=== PATIENT | male | born 1935 | race Asian ===

== ENCOUNTER 2019-09-17 00:23 | Inpatient (IN) | payer MEDICARE, OTHER ==
[~2019-09-17] VITALS: Ht 177.8 cm; Wt 84.4 kg
--- NOTE | 2019-09-17 00:32 | Emergency Room Report ---
History of Present Illness General Chief Complaint: Dyspnea/Respdistress Source: Medical Record, EMS Present Illness HPI This is an 84-year-old [place] male with a history of metastatic lung cancer, recent CVA, A. fib who presents with chief complaint of shortness of breath. Patient had a prolonged hospitalization at [facility] and was recently discharged [facility]. During hospitalization his cover test was negative. Per [facility] staff, he had a negative cover test 3 days ago. He presents with shortness of breath. Onset tonight. Per EMS, he was 90% on room air. No reported fever. No reported cough. History is from EMS and [facility] note. Patient unable to give a history. Allergies: Coded Allergies: No Known Allergies (Unverified , 09/17/19) COVID-19 Screening Contact w/high risk pt: Yes Experienced COVID-19 symptoms?: Yes COVID-19 Testing performed LITIGATION MANAGER: Yes COVID-19 Screening: Negative COVID-19 COVID-19 Testing Source: x 3 days Patient History Past Medical History: see triage record, old chart reviewed, AFib, pneumonia Past Surgical History: other Pertinent Family History: none Social History: Denies: smoking Immunizations: other Reviewed Nursing Documentation: PMH: Agreed; PSxH: Agreed Nursing Documentation-PMH Hx Hypertension: Yes Hx Cerebrovascular Accident: Yes Review of Systems Respiratory: Reports: shortness of breath All Other Systems: limited - Patient is nonverbal. Also secondary to condition Physical Exam Vital Signs Date Time Temp Pulse Resp B/P (MAP) Pulse Ox O2 Delivery O2 Flow Rate FiO2 09/17/19 00:19 80 19 144/82 (102) 97 Non-Rebreather 15.0 Vitals with fever and hypoxia Sp02 EP Interpretation: abnormal General Appearance: moderate distress, cachetic, Chronically Ill Head: normocephalic, atraumatic Eyes: bilateral eye PERRL, bilateral eye EOMI ENT: dry mucus membranes Neck: full range of motion, supple, no meningismus Respiratory: chest non-tender, respiratory distress, decreased breath sounds, rhonchi Cardiovascular #1: regular rate, rhythm, no murmur Gastrointestinal: normal bowel sounds, non tender, no mass, no organomegaly, no bruit, non-distended, other - G-tube Musculoskeletal: no lower extremity edema, other - Pressure ulcer to right heel Neurologic: no Babinski Psychiatric: mood/affect normal Procedures Critical Care Time Critical Care Time Critical care is mandated in this patient who presented with sepsis from pneumonia and UTI. Patient require my urgent intervention to attenuate the risks of metabolic collapse which may lead to cardiovascular collapse and . Critical care time is 35 minutes excluding any reportable procedure. Critical care time included evaluation, multiple reevaluation, looking at old charts, interpreting laboratory and diagnostic data, discussing case with patient and family and consultants, and charting. Medical Decision Making Diagnostic Impression: Primary Impression: Sepsis Qualified Codes: A41.9 - Sepsis, unspecified organism; R65.20 - Severe sepsis without septic shock; N17.9 - Acute kidney failure, unspecified Additional Impressions: HCAP (healthcare-associated pneumonia) UTI (urinary tract infection) Qualified Codes: N30.00 - Acute cystitis without hematuria Dehydration CVA (cerebral vascular accident) Qualified Codes: I63.9 - Cerebral infarction, unspecified Anemia Qualified Codes: D64.9 - Anemia, unspecified Encephalopathy due to infection Metastatic lung cancer (metastasis from lung to other site) Qualified Codes: C34.90 - Malignant neoplasm of unspecified part of unspecified bronchus or lung ARF (acute renal failure) Qualified Codes: N17.9 - Acute kidney failure, unspecified ER Course Patient presents with sepsis secondary to pneumonia and UTI. He also has metastatic lung CA. CT head showed subacute appearing infarct involving the left frontal, temporal and parietal lobes. He had previous infarct requiring admission in the beginning of August at [facility]. There is no acute infarct. He is outside the window for TPA. Wide spectrum antibiotics given. Prognosis is poor. I contacted Dr. Mariscal for admission. EKG Diagnostic Results Rate: normal Rhythm: NSR Other Impression RBBB Rhythm Strip Diag. Results EP Interpretation: yes Rate: 84 Rhythm: NSR, no PVC's, no ectopy Chest X-Ray Diagnostic Results Chest X-Ray Diagnostic Results : Chest X-Ray Ordered: Yes # of Views/Limited/Complete: 1 View Indication: Shortness of Breath EP Interpretation: Yes Interpretation: no effusion, no pneumothorax, other - Multiple lesions bilaterally. Impression: Other - Pulmonary lesions Electronically Signed by: Shaun Tejada MD CT/MRI/US Diagnostic Results CT/MRI/US Diagnostic Results : Imaging Test Ordered: CT head Impression Read by radiologist. Subacute appearing infarct. Last Vital Signs Date Time Temp Pulse Resp B/P (MAP) Pulse Ox O2 Delivery O2 Flow Rate FiO2 09/17/19 00:19 80 19 144/82 (102) 97 Non-Rebreather 15.0 Status: improved Disposition: ADMITTED INPATIENT Condition: Critical Shaun Tejada MD Sep 17, 2019 00:32
[2019-09-17] MEDS ORDERED: BISACODYL5 MG ORAL (00:37)
[2019-09-17] MEDS ORDERED: FLECAINIDE ACET50 MG ORAL (00:37)
[2019-09-17] MEDS ORDERED: ASPIR 8181 MG GT (00:37)
[2019-09-17] MEDS ORDERED: LIPITOR20 MG GT (00:37)
[2019-09-17] MEDS ORDERED: ATENOLOL25 MG GT (00:37)
[2019-09-17] MEDS ORDERED: ALBUTEROL2.5 MG/3 M INH (00:37)
[2019-09-17] MEDS ORDERED: PROTONIX40 MG GT (00:37)
[2019-09-17] MEDS ORDERED: TYLENOL EXTRA500 MG GT (00:37)
--- NOTE | 2019-09-17 00:38 | NUR ---
ED Nurse Note: Patient brought in by ambulance [id number] from [facility] d/t c/o SOB. Patient obtunded and nonverbal, only responds to deep pain. Patient placed on laboratory monitor and is currently on nonrebreather mask 15L O2, satting at 98-100% RT at bedside for ABG draw. Patient has a PICC line on right upper arm and vázquez catheter 16F patent and draining. All bloodwork drawn, urine, and rapid covid sent to lab. No acute distress noted during assessment.
[2019-09-17 00:40] LABS: APPEARANCE,URINE CLEAR; BILIRUBIN, URINE NEGATIVE (NEGATIVE); GLUCOSE, URINE (UA) NEGATIVE (NEGATIVE); KETONES,URINE NEGATIVE (NEGATIVE); LEUKOCYTE ESTERASE ,URINE 1+ (NEGATIVE); NITRITE,URINE NEGATIVE (NEGATIVE); PH,URINE 5 (4.5-8.0); PROTEIN,URINE 2+ (NEGATIVE); UROBILINOGEN,URINE NORMAL MG/DL (0.0-1.0)
[2019-09-17 00:41] VITALS: BP 142/74
[2019-09-17] MEDS ORDERED: Acetaminophen 650 MG SUPP RECTAL ONE (00:45)
--- NOTE | 2019-09-17 00:45 | NUR ---
ED Nurse Note: Daughter, Zuleika Spencer called and would like for us to call her with updates concerning patient. Daughter reports patient is non-verbal but understands Upper Sorbian. Call back number is [phone].
[2019-09-17 00:48] LABS: ANION GAP 9 mmol/L (5-15); BLOOD UREA NITROGEN 42 mg/dL (7-18); CALCIUM 9.3 MG/DL (8.5-10.1); CARBON DIOXIDE 32 MMOL/L (21-32); CHLORIDE 115 MMOL/L (98-107); COLOR,URINE YELLOW; CREATININE 1.5 MG/DL (0.55-1.30); POTASSIUM 4.2 MMOL/L (3.5-5.1); SODIUM 156 MMOL/L (136-145)
[2019-09-17 00:53] LABS: HEMATOCRIT 35.3 % (42.0-52.0); HEMOGLOBIN 11.4 G/DL (14.2-18.0); MEAN CORPUSCULAR VOLUME 99 FL (80-99); PLATELET COUNT 250 K/UL (150-450); RED BLOOD COUNT 3.56 M/UL (4.70-6.10); RED CELL DISTRIBUTION WIDTH 14.3 % (11.6-14.8); WHITE BLOOD COUNT 13.2 K/UL (4.8-10.8)
--- NOTE | 2019-09-17 00:54 | NUR ---
ED Nurse Note: Patient taken to CT in stable condition
[2019-09-17 00:57] LABS: ALANINE AMINOTRANSFERASE 82 U/L (12-78); ALBUMIN 1.9 G/DL (3.4-5.0); ALBUMIN/GLOBULIN RATIO 0.4 (1.0-2.7); ALKALINE PHOSPHATASE 71 U/L (46-116); ASPARTATE AMINO TRANSFERASE 49 U/L (15-37); BILIRUBIN,TOTAL 0.4 MG/DL (0.2-1.0)
--- NOTE | 2019-09-17 01:05 | NUR ---
ED Nurse Note: Patient returned from CT in stable condition
[2019-09-17] MEDS ORDERED: Cefepime HCl 1 GM in D5W 55 ML IVPB ONE (01:15)
--- NOTE | 2019-09-17 01:50 | Diagnostic Imaging Report ---
EXAM: CT Head Without Intravenous Contrast CLINICAL HISTORY: AMS TECHNIQUE: Axial computed tomography images of the head/brain without intravenous contrast. CTDI is 53 mGy and DLP is 992 mGy-cm. One or more of the following dose reduction techniques were used: automated exposure control, adjustment of the mA and/or kV according to patient size, use of iterative reconstruction technique. COMPARISON: No relevant prior studies available. FINDINGS: Brain: Subacute appearing infarct involving the left frontal, temporal, and parietal lobes as well as the left basal ganglia. No intracranial hemorrhage. Midline shift: Left right midline shift of 5 mm. Ventricles: Mass-effect on the anterior horn of the left lateral ventricle and third ventricle. Bones/joints: Unremarkable. No fracture. Soft tissues: Unremarkable. Sinuses: Fluid within the left maxillary sinus. Mastoid air cells: Unremarkable as visualized. IMPRESSION: 1. Subacute appearing infarct involving the left frontal, temporal, and parietal lobes as well as the left basal ganglia. This infarct involves both MCA and YAMILEX distributions. At least two thirds of the left MCA distribution is involved. 2. Left to right midline shift of 5 mm. 3. No intracranial hemorrhage. <MYCVCSECTION> Communications: 09/17/19 01:51 Call Doctor Regarding Stroke, called Shaun Tejada MD on 09/16 01:51 (-07:00)
--- NOTE | 2019-09-17 02:08 | NUR ---
ED Nurse Note: MRSA, VRE, CRE swabs collected and sent to lab. Belongings list completed, patient has no belongings.
[2019-09-17] MEDS ORDERED: Acetaminophen 650 MG SUPP RECTAL PRN (02:30)
--- NOTE | 2019-09-17 02:33 | Emergency Room Report ---
Sepsis Event Note Evaluation Current Stage of Sepsis: Sepsis Possible Source: Pulmonary, Genitourinary Focused Exam Allergies: Coded Allergies: No Known Allergies (Unverified , 09/17/19) Date Exam Occurred: Sep 17, 2019 Time Exam Occurred: 02:33 Laboratory Studies Laboratory Tests Test 09/17/19 00:15 09/17/19 00:29 White Blood Count 13.2 K/UL (4.8-10.8) H Red Blood Count 3.56 M/UL (4.70-6.10) L Hemoglobin 11.4 G/DL (14.2-18.0) L Hematocrit 35.3 % (42.0-52.0) L Mean Corpuscular Volume 99 FL (80-99) Mean Corpuscular Hemoglobin 32.1 PG (27.0-31.0) H Mean Corpuscular Hemoglobin Concent 32.4 G/DL (32.0-36.0) Red Cell Distribution Width 14.3 % (11.6-14.8) Platelet Count 250 K/UL (150-450) Mean Platelet Volume 7.6 FL (6.5-10.1) Neutrophils (%) (Auto) % (45.0-75.0) Lymphocytes (%) (Auto) % (20.0-45.0) Monocytes (%) (Auto) % (1.0-10.0) Eosinophils (%) (Auto) % (0.0-3.0) Basophils (%) (Auto) % (0.0-2.0) Urine Color Yellow Urine Appearance Clear Urine pH 5 (4.5-8.0) Urine Specific [place] 1.020 (1.005-1.035) Urine Protein 2+ (NEGATIVE) H Urine Glucose (UA) Negative (NEGATIVE) Urine Ketones Negative (NEGATIVE) Urine Blood 4+ (NEGATIVE) H Urine Nitrite Negative (NEGATIVE) Urine Bilirubin Negative (NEGATIVE) Urine Urobilinogen Normal MG/DL (0.0-1.0) Urine Leukocyte Esterase 1+ (NEGATIVE) H Urine RBC 10-15 /HPF (0 - 0) H Urine WBC 0-2 /HPF (0 - 0) Urine Squamous Epithelial Cells None /LPF (NONE/OCC) Urine Amorphous Sediment Few /LPF (NONE) H Urine Bacteria Moderate /HPF (NONE) H Urine Coarse Granular Casts 0-2 /LPF (NONE) H Urine Mucus Few /LPF (NONE/OCC) H Sodium Level 156 MMOL/L (136-145) H Potassium Level 4.2 MMOL/L (3.5-5.1) Chloride Level 115 MMOL/L (98-107) H Carbon Dioxide Level 32 MMOL/L (21-32) Anion Gap 9 mmol/L (5-15) Blood Urea Nitrogen 42 mg/dL (7-18) H Creatinine 1.5 MG/DL (0.55-1.30) H Estimat Glomerular Filtration Rate 44.8 mL/min (>60) Glucose Level 157 MG/DL (74-106) H Lactic Acid Level 1.60 mmol/L (0.4-2.0) Calcium Level 9.3 MG/DL (8.5-10.1) Total Bilirubin 0.4 MG/DL (0.2-1.0) Aspartate Amino Transf (AST/SGOT) 49 U/L (15-37) H Alanine Aminotransferase (ALT/SGPT) 82 U/L (12-78) H Alkaline Phosphatase 71 U/L (46-116) Troponin I 0.067 ng/mL (0.000-0.056) C-Reactive Protein, Quantitative 30.8 mg/dL (0.00-0.90) H Pro-B-Type Natriuretic Peptide 532 pg/mL (0-125) H Total Protein 6.8 G/DL (6.4-8.2) Albumin 1.9 G/DL (3.4-5.0) L Globulin 4.9 g/dL Albumin/Globulin Ratio 0.4 (1.0-2.7) L Arterial Blood pH 7.450 (7.350-7.450) Arterial Blood Partial Pressure CO2 40.4 mmHg (35.0-45.0) Arterial Blood Partial Pressure O2 96.0 mmHg (75.0-100.0) Arterial Blood HCO3 27.5 mmol/L (22.0-26.0) H Arterial Blood Oxygen Saturation 96.8 % (95-100) Arterial Blood Base Excess 3.3 (-2-2) H Dax Test Positive Vital Signs Last 24 Hour Vital Signs Date Time Temp Pulse Resp B/P (MAP) Pulse Ox O2 Delivery O2 Flow Rate FiO2 09/17/19 01:13 97.9 09/17/19 00:41 102.7 85 36 142/74 98 Non-Rebreather 15.0 09/17/19 00:37 102.7 09/17/19 00:36 85 36 Non-Rebreather 15.0 09/17/19 00:19 80 19 144/82 (102) 97 Non-Rebreather 15.0 Respiratory Exam: Rhonchi Cardiovascular Exam: RRR Capillary Refill: Less Than 2 Seconds Peripheral Pulse: Strong Pulse Location: Radial Skin Exam: Normal Turgor Shaun Tejada MD Sep 17, 2019 02:33
--- NOTE | 2019-09-17 02:39 | NUR ---
ED Nurse Note: Report given to JEFF Hunt.
[2019-09-17 02:45] VITALS: BP 117/58
--- NOTE | 2019-09-17 02:45 | NUR ---
TRANSFER TO FLOOR: Patient transferred to tele as ordered, per ERMD. Report given to JEFF Hunt. Patient transported via gurney on ACLS protocol on surveillance system monitor accompanied by 1 RN and oil well fishing tool technician in stable condition.
--- NOTE | 2019-09-17 02:45 | NUR ---
NURSE NOTES: Received hand-off report from Dominga Marinelli RN. Received patient safely via gurney and is now resting in bed, semi-fowlers, in stable condition. grubber in place, respirations are unlabored, on non-rebreather 15L, spO2 100%. Delong [address], draining yellow clear fluid. G-tube in place. Alert and oriented x0, drowsy yet stable. Bed in lowest and locked position, bed alarm on, call light within reach. Patient came with no belongings.
--- NOTE | 2019-09-17 03:45 | NUR ---
NURSE NOTES: Notified Dr. Mariscal regarding new admission and any potential orders at this time. Awaiting doctor's response.
--- NOTE | 2019-09-17 04:13 | NUR ---
NURSE NOTES: Notified RT regarding patient respiratory status and to evaluate patient on breathing supply.
--- NOTE | 2019-09-17 05:00 | NUR ---
NURSE NOTES: Received orders by Dr. Echevarria for 1/2 NS at 100mL / hr, vanco per pharmacy dosing, zosyn 3.375 gm q. 8hr, and swallow evaluation. Noted and will carry out.
[2019-09-17] MEDS ORDERED: Zosyn 2.25gm inj IV SCH (06:00)
[2019-09-17] MEDS: Zosyn 3.375gm q8h **Extended infusion IVPB SCH ×6 (06:47→21:43)
--- NOTE | 2019-09-17 07:30 | NUR ---
NURSE NOTES: Dr. Echevarria aware of troponin 0.067. No orders at this time. Endorsed continuation of home medications to JEFF Hansen. Patient in stable condition. Plan of care endorsed. Breathing is even, spO2: 100%, no changes in LOC, on venturi mask 15L.
[2019-09-17 08:00] VITALS: BP 142/58
[2019-09-17] MEDS ORDERED: Acetaminophen 650mg/20.3ml GT PRN (08:15)
[2019-09-17] MEDS ORDERED: Bisacodyl EC 5mg tab ORAL PRN (08:15)
[2019-09-17] MEDS ORDERED: Albuterol/Ipratropium 3ml neb HHN PRN (08:15)
[2019-09-17] MEDS ORDERED: Aspirin Baby 81mg GT SCH (09:00)
[2019-09-17] MEDS: Atenolol 25mg tab GT SCH (09:53)
[2019-09-17] MEDS ORDERED: Vancomycin 1.25gm/NS Premix IVPB ONE (10:00)
[2019-09-17 12:00] VITALS: BP 96/50
--- NOTE | 2019-09-17 13:48 | Diagnostic Imaging Report ---
Indication: Shortness of breath Technique: One view of the chest Comparison: none Findings: 5 cm masslike opacity projects in the right infrahilar region. There are generalized bilateral interstitial opacities with more focal consolidative opacities in the upper lobes bilaterally. There is suggestion of some upward retraction of the alba. There appears to be some pleural scarring in the left upper the thorax. The heart size is normal. Impression: Round 5 cm masslike opacity in the right infrahilar region. Consider CT scan to rule out tumor Bilateral interstitial opacities, acuity indeterminate, may represent interstitial fibrosis versus acute interstitial disease Were extensive bilateral upper lung opacities. May reflect acute infiltrates, but suggestion of upward hilar retraction raises possibility that this is secondary to scarring. Left upper hemithorax pleural scarring
--- NOTE | 2019-09-17 14:05 | NUR ---
ORDER RECEIVED, CHART REVIEWED, INTERVIEW WITH RESIDENTIAL FACILITY NURSING CAKE FORMER AND PATIENTS RN, JUSTINE COMPLETED. PER NURSING FACILITY, PATIENTS POLST: FULL CODE DYSPHAGIA RISK FACTORS FOR THIS 84 YEAR OLD MALE: HX OF HYPOXIA, METASTATIC LUNG DISEASE, DECREASED STAMINA, HX OF RECURRING PNEUMONIA, S/P PEG PLACEMENT THIS MONTH, ABSENCE OF OROPHARYNGEAL PHASE OF SWALLOW INITIAL IMPRESSIONS: WHEN CLINICIAN ENTERED THE ROOM, THE PATIENTS RESPIRATORY DIFFICULTIES WERE AUDIBLE. HE PRESENTED WITH WITH WET UPPER AIRWAY SOUNDS. WHEN ASKED TO IMITATE A COUGH RESPONSE, HE WAS UNABLE TO DO SO. PATIENT WAS POSITIONED UPRIGHT AT 90 DEGREES FOR P.O. TRIALS. CLINICIAN INITIALLY PRESENTED NECTAR THICK WATER IN 5ML AMOUNTS VIA SPOON. PATIENTS SEVERELY DECREASED MENTATION RESULTED IN POOR BOLUS ACCEPTANCE, ABSENCE OF LABIAL SEAL, ABSENCE OF ORAL PREPATORY AND ORAL TRANSIT MOVEMENTS. BOLUS OF NECTAR THICK LIQUID HAD TO BE SUCTIONED FROM THE PATIENTS MOUTH WITH SUCTIONING EQUIPMENT WHICH WAS AT BEDSIDE. HIS RESTING RESPIRATION RATE APPEARED TO BE CLOSER TO 28 BPM. HE IS UNABLE TO MANAGE HIS UPPER AIRWAY SECRETIONS, PLACING HIM AT HIGH RISK FOR PNEUMONIA. RECOMMENDATIONS: 1. CONTINUE NON/ORAL FEEDING MANAGEMENT VIA PEG TO SUPPORT NUTRITION/ HYDRATION/MEDICATION NEEDS 2. ORAL CARE TID TO REDUCE ORAL PATHOGENS AND REDUCE DEVELOPMENT OF NOSOCOMIAL PNEUMONIA 3. NO FURTHER SKILLED ST SERVICES APPEAR TO BE NEEDED AT THIS TIME. THANK YOU FOR THIS REFERRAL.
--- NOTE | 2019-09-17 15:30 | Consultation ---
DATE OF CONSULTATION: 09/17/2019 INFECTIOUS DISEASES CONSULTATION CONSULTING PHYSICIAN: Jitendra Hubbard MD. REFERRING PHYSICIAN: Sherif Echevarria MD. REASON FOR CONSULTATION: Pneumonia. HISTORY OF PRESENTING ILLNESS: This is an 84-year-old gentleman with history of metastatic lung cancer, CVA, atrial fibrillation who comes in with shortness of breath. There was a concern for COVID-19 pneumonia, but this test was negative 3 days ago. An Infectious Diseases consultation has been obtained for antibiotics. PAST MEDICAL HISTORY: 1. History of metastatic lung cancer. 2. CVA. 3. Atrial fibrillation. 4. History of hypertension. SOCIAL HISTORY: Unknown. FAMILY HISTORY: Unknown. REVIEW OF SYSTEMS: Unable to obtain currently. MEDICATIONS: As an inpatient, he is on atorvastatin, subcutaneous heparin, vancomycin, aspirin, atenolol, flecainide, lansoprazole, Tylenol, albuterol/ipratropium, Zosyn. ALLERGIES: No known drug allergies. PHYSICAL EXAMINATION: VITAL SIGNS: Temperature 97.1, T-max of 102.7, pulse of 66, respiratory rate 18, blood pressure 142/58, O2 saturation of 96% on 15 liters of oxygen. Examination deferred due to possibility of COVID-19 LABORATORY AND DIAGNOSTIC DATA: White count 13.2, hemoglobin 11.4, hematocrit 35.3, MCV 99, platelet count of 250. Sodium 156, potassium 4.2, chloride 115, bicarb 32, BUN 42, creatinine 1.5, glucose 157, calcium 9.3. Total bilirubin 0.4, AST 49, ALT 82, alkaline phosphatase 71. Troponin 0.067. C-reactive protein 30.8. Beta-natriuretic peptide 532. Total protein 6.8, albumin 1.9. UA is showing 0 to 2 white cells. COVID-19 rapid test [address] negative[address] CT head showing subacute appearing infarct involving the left frontal, temporal, and parietal lobes. [id number] midline shift. No intracranial hemorrhage. ASSESSMENT: This is an 84-year-old gentleman with history of hypertension, CVA, atrial fibrillation, lung cancer who comes in with shortness of breath and is found to have. 1. Likely postobstructive pneumonia. 2. COVID-19 rapid test is negative. 3. Atrial fibrillation. 4. CVA. 5. Lung cancer. PLAN: 1. Continue Zosyn and IV vancomycin. 2. We will order sputum for Gram stain and culture. 3. We will follow up cultures and adjust antibiotics accordingly. 4. Discontinue isolation. I would like to thank, Dr. Echevarria, for this consultation. Alexkuntala Eligio Hubbard DR: DALJIT JOB#: [id number] CC: Sherif Echevarria M.D.
[2019-09-17 16:00] VITALS: BP 144/67
--- NOTE | 2019-09-17 16:10 | NUR ---
CASE MANAGEMENT:REVIEW 84 YR OLD MALE BIBA FROM [facility] CC: SOB PMH: DISCHARGED FROM [facility] 2 DAYS AGO SI: SEPSIS. PNA. METASTATIC LUNG CA 102.7 80 136 144/82 97% ON NON REBREATHER WBC+13.2 NA+156 BUN+42 CR+1.5 AST/ALT+49/82 TROPONIN(+)0.067 IS: 1L NS BOLUS X2 TYLENOL IA IV CEFEPIME IV LEVAQUIN URINE CX CT HEAD CHEST XRAY RAPID COVID : TO TELEMETRY UNIT
--- NOTE | 2019-09-17 16:30 | History and Physical Report ---
DATE OF ADMISSION: 09/17/2019 CHIEF COMPLAINT: Shortness of breath. HISTORY OF PRESENT ILLNESS: The patient is an 84-year-old male. He has a prior history of lung cancer and previously been on chemotherapy. Family had felt that he had been improving. Apparently, at the beginning of August, he suffered a stroke and was admitted to [facility]. He had a prolonged hospitalization there and was recently just discharged to Rehab. According to family members, he had a hemorrhagic bleed. He also had issues with his heart and was started on antiarrhythmics. He was on a ventilator and eventually had a G-tube placed. He was transferred to Rehab, but because of shortness of breath was immediately transferred to the hospital. On evaluation here, he had x-ray evidence of bilateral opacities. He had leukocytosis and was hypoxic. He was started on a nonrebreather mask and is now admitted for further evaluation and care. He is nonverbal and is unable to provide any additional history. There are no reports of any vomiting. He apparently has had some diarrhea at the hospital and [facility]. PAST MEDICAL HISTORY: As above. PAST SURGICAL HISTORY: None. CURRENT MEDICATIONS: Reconciled and reviewed. ALLERGIES: None. FAMILY HISTORY: None. SOCIAL HISTORY: Negative for tobacco, ethanol, or drugs. REVIEW OF SYSTEMS: From the patient is unobtainable as he is nonverbal. PHYSICAL EXAMINATION: VITAL SIGNS: Temp 102.7, pulse 85, respirations 36, blood pressure 142/74. GENERAL: The patient is a frail elderly male who appears acutely ill. He is poorly responsive. HEENT: Head is normocephalic and atraumatic. NECK: Supple. There is no adenopathy noted. HEART: Regular rate and rhythm. LUNGS: Clear anteriorly. ABDOMEN: Soft, nontender, nondistended. EXTREMITIES: Without clubbing, cyanosis, or edema. LABS: White count 13, hemoglobin 11, hematocrit 35, platelet count 250. ABG showed a pH of 7.42, pCO2 of 40, O2 saturation of 70, bicarb of 26. Sodium was 156, potassium 4.2. UA showed 0-[address] scan of the head showed a subacute infarct involving the left frontotemporal and parietal lobes. Some [id number] midline shift of 5 mm is noted. Chest x-ray showed extensive bilateral upper lung zone opacities. ASSESSMENT: This is an unfortunate 84-year-old male with a history of lung cancer, status post recent stroke, admitted with shortness of breath secondary to possible pneumonia. PLAN: Continue supplemental oxygen, IV antibiotic therapy. Follow up pending culture. Follow up on repeat COVID test. Pulmonary, infectious disease, cardiology evaluations will be obtained. We will hydrate gently. Continue G-tube feeds. Check a venous duplex of the legs. SCDs if venous duplex is negative. The patient's status appears poor. This has been discussed with family members. According to the family, the patient signed the advance directive requesting full code. Sherif Echevarria M.D. DR: FIONA JOB#: [id number] CC:
--- NOTE | 2019-09-17 17:52 | NUR ---
RESPIRATORY NOTE: Sputum culture collected. Given to selling underwriter Joel. RN Jade notified.
--- NOTE | 2019-09-17 19:00 | NUR ---
NURSE NOTES: Received hand-off report from JEFF Hansen. Patient is alert and oriented x0, no changes in LOC and the same LOC as the night prior. road gang supervisor in place, call light within reach, bed in lowest and locked position, bed alarm on. No acute signs of distress noted. Breathing is unlabored, venturi mask is on at 15L, spO2: 93%.
--- NOTE | 2019-09-17 19:31 | NUR ---
HAND-OFF: Report given to Jeri AGUILAR.
[2019-09-17 20:00] VITALS: BP 141/66
[2019-09-17] MEDS ORDERED: Heparin 5000 units/ml inj SUBQ SCH (21:00)
[2019-09-17] MEDS: Atorvastatin 20mg tab GT SCH (21:43)
--- NOTE | 2019-09-17 23:45 | Consultation ---
DATE OF CONSULTATION: 09/17/2019 PULMONARY CONSULTATION CONSULTING PHYSICIAN: Real Strickland MD REFERRING PHYSICIAN: Sherif Echevarria MD REASON FOR CONSULTATION: Respiratory insufficiency and a 5 cm mass, right infrahilar region, bilateral interstitial changes. HISTORY OF PRESENT ILLNESS: This is an 84-year-old male with prior history of lung cancer and chemotherapy. The patient's family felt that he had been improving. The patient was noted to have a stroke recently, prolonged hospitalization. The patient also has significant cardiac issues, he was started on antiarrhythmic. He was on a ventilator and G-tube fed. The patient eventually did well and was weaned off the ventilator. Patient's x-ray suggests bilateral infiltrates, leukocytosis, hypoxemia. The patient is admitted for further care and management and further evaluation. PAST MEDICAL HISTORY: Lung cancer of unclear status, history of respiratory failure, history of CVA, history of aspiration, and history of G-tube. MEDICATIONS: Reviewed. ALLERGIES: Reviewed. SOCIAL HISTORY: The patient is a nonsmoker, nondrinker. The patient is fairly debilitated. REVIEW OF SYSTEMS: Unobtainable. PHYSICAL EXAMINATION: GENERAL: Patient is an ill-appearing male. VITAL SIGNS: Reviewed. Blood pressure 142/58, pulse 66, T-max 100.4, respiratory rate 18, O2 saturation 97%. Patient is on a Venturi mask. HEENT: Overall negative. NECK: Supple. LUNGS: With coarse breath sounds, moderate air entry. CARDIAC: Regular rate and rhythm with soft systolic murmur. ABDOMEN: Soft, nontender. No distention. EXTREMITIES: No cyanosis or clubbing. No edema. NEUROLOGIC: Weak, confused overall. LABORATORY DATA: Reviewed. White count 13, hemoglobin 11, platelets 250. ABG, pH 7.42/pCO2 of 40/oxygen saturation of 70. Sodium 156. CT scan of the head showed old infarct. Chest x-ray with extensive infiltrate and the mass as described. IMPRESSION: Possible pneumonia, lung mass, history of cancer, history of smoking, history of CVA, history of aspiration, hypernatremia, acute renal failure, leukocytosis, possible sepsis. RECOMMENDATIONS: Supportive care. IV antibiotics. Oxygen therapy. Defer further evaluation of lung mass for now pending further improvement. Follow up COVID testing. Monitor rhythm. Monitor fluid status. Obtain prior records as to lung cancer and lung mass and assess need for further intervention. Care was discussed and reviewed with the primary care doctor. We will follow clinically for further changes. Real Strickland M.D. DR: BALWINDER JOB#: [id number] CC: EMILY
[2019-09-18] VITALS: BP 132/78
--- NOTE | 2019-09-18 02:49 | NUR ---
NURSE NOTES: Notified Dr. Echevarria and Dr. Mariscal regarding an episode at midnight of SR with BBB. Patient v/s normal, no change in condition, patient stable, alert and oriented x0. Awaiting orders or cardio consult order.
[2019-09-18 04:00] VITALS: BP 140/61
--- NOTE | 2019-09-18 04:52 | NUR ---
NURSE NOTES: Notified Dr. Echevarria and Davey regarding second episode of SR with BBB. No new orders at this time.
[2019-09-18 06:20] LABS: HEMATOCRIT 32.7 % (42.0-52.0); HEMOGLOBIN 10.3 G/DL (14.2-18.0); MEAN CORPUSCULAR VOLUME 99 FL (80-99); PLATELET COUNT 188 K/UL (150-450); RED BLOOD COUNT 3.29 M/UL (4.70-6.10); RED CELL DISTRIBUTION WIDTH 14.5 % (11.6-14.8)
--- NOTE | 2019-09-18 06:20 | NUR ---
NURSE NOTES: Dr. Echevarria gave orders for ABG. Noted and will carry out.
[2019-09-18] MEDS: Zosyn 3.375gm q8h **Extended infusion IVPB SCH ×6 (06:30→21:53)
--- NOTE | 2019-09-18 06:37 | NUR ---
NURSE NOTES: Noted increased respirations 24/min, spo2: 90%, expiratory wheezes. Will notify RT.
--- NOTE | 2019-09-18 06:40 | NUR ---
NURSE NOTES: Notified RT regarding respiratory status.
[2019-09-18 06:42] LABS: ALANINE AMINOTRANSFERASE 64 U/L (12-78); ALBUMIN 1.8 G/DL (3.4-5.0); ALBUMIN/GLOBULIN RATIO 0.4 (1.0-2.7); ALKALINE PHOSPHATASE 65 U/L (46-116); ANION GAP 7 mmol/L (5-15); ASPARTATE AMINO TRANSFERASE 47 U/L (15-37); BILIRUBIN,TOTAL 0.4 MG/DL (0.2-1.0); BLOOD UREA NITROGEN 33 mg/dL (7-18); CALCIUM 8.9 MG/DL (8.5-10.1); CARBON DIOXIDE 29 MMOL/L (21-32); CHLORIDE 117 MMOL/L (98-107); CREATININE 1.1 MG/DL (0.55-1.30); POTASSIUM 3.2 MMOL/L (3.5-5.1); SODIUM 152 MMOL/L (136-145)
--- NOTE | 2019-09-18 06:42 | NUR ---
NURSE NOTES: Notified Dr. Echevarria regarding patient respiratory status. Awaiting orders.
--- NOTE | 2019-09-18 07:30 | NUR ---
HAND-OFF: Report given to JEFF Arredondo. Plan of care endorsed, patient in stable condition, spO2: 98%, respirations 20. No changes in LOC noted.
[2019-09-18 08:18] VITALS: BP_SYST 115; BP_SYST 125; BP_DIAS 73
--- NOTE | 2019-09-18 08:18 | Pulmonology Progress Note ---
Subjective Allergies: Coded Allergies: No Known Allergies (Unverified , 09/17/19) Subjective care noted on oxygen Objective Last 24 Hour Vital Signs Date Time Temp Pulse Resp B/P (MAP) Pulse Ox O2 Delivery O2 Flow Rate FiO2 09/18/19 04:00 96.9 83 18 140/61 (87) 96 09/18/19 04:00 78 09/18/19 00:00 97.7 75 18 132/78 (96) 96 09/18/19 00:00 76 09/17/19 21:00 Venturi Mask 09/17/19 20:00 98.9 73 18 141/66 (91) 99 09/17/19 20:00 73 09/17/19 19:54 96 Venturi Mask 15.0 55 09/17/19 16:00 98.3 80 20 144/67 (92) 97 09/17/19 16:00 68 09/17/19 12:00 66 09/17/19 12:00 100.4 89 18 96/50 (65) 97 09/17/19 09:53 66 142/58 09/17/19 09:07 98 Venturi Mask 8.0 35 09/17/19 09:00 Venturi Mask Intake and Output 09/17/19 09/18/19 19:00 07:00 Output Total 1200 ml 720 ml Balance -1200 ml -720 ml Output Urine Total 1200 ml 720 ml # Bowel Movements 3 1 Objective GENERAL: Patient is an ill-appearing male. NECK: Supple. LUNGS: With coarse breath sounds, moderate air entry. CARDIAC: Regular rate and rhythm with soft systolic murmur. ABDOMEN: Soft, nontender. No distention. EXTREMITIES: No cyanosis or clubbing. No edema. NEUROLOGIC: Weak, confused overall. reviewed and edited Microbiology Date/Time Source Procedure Growth Status 09/17/19 00:25 Blood Blood Culture - Preliminary NO GROWTH AFTER 24 HOURS Resulted 09/17/19 00:10 Blood Blood Culture - Preliminary NO GROWTH AFTER 24 HOURS Resulted 09/17/19 17:50 Sputum Gram Stain - Final Resulted 09/17/19 17:50 Sputum Sputum Culture Pending Resulted 09/17/19 00:33 Nasopharynx SARS-CoV-2 RdRp Gene Assay - Final Complete 09/17/19 00:15 Urine,Clean Catch Urine Culture - Preliminary NO GROWTH Resulted 09/17/19 01:10 Rectum Received Laboratory Tests 09/17/19 12:20: Arterial Blood pH 7.428, Arterial Blood Partial Pressure CO2 40.6, Arterial Blood Partial Pressure O2 69.2L, Arterial Blood HCO3 26.2H, Arterial Blood Oxygen Saturation 92.6L, Arterial Blood Base Excess 1.8, Dax Test Positive 09/17/19 20:00: Arterial Blood pH 7.434, Arterial Blood Partial Pressure CO2 37.4, Arterial Blood Partial Pressure O2 57.6L, Arterial Blood HCO3 24.5, Arterial Blood Oxygen Saturation 88.9*L, Arterial Blood Base Excess 0.4, Dax Test Positive 09/18/19 05:50: White Blood Count 10.0, Red Blood Count 3.29L, Hemoglobin 10.3L, Hematocrit 32.7L, Mean Corpuscular Volume 99, Mean Corpuscular Hemoglobin 31.4H, Mean Corpuscular Hemoglobin Concent 31.6L, Red Cell Distribution Width 14.5, Platelet Count 188, Mean Platelet Volume 7.2, Neutrophils (%) (Auto) , Lymphocytes (%) (Auto) , Monocytes (%) (Auto) , Eosinophils (%) (Auto) , Basophils (%) (Auto) , Neutrophils % (Manual) [Pending], Lymphocytes % (Manual) [Pending], Platelet Estimate [Pending], Platelet Morphology [Pending], Sodium Level 152H, Potassium Level 3.2L, Chloride Level 117H, Carbon Dioxide Level 29, Anion Gap 7, Blood Urea Nitrogen 33H, Creatinine 1.1, Estimat Glomerular Filtration Rate > 60, Glucose Level 125H, Calcium Level 8.9, Total Bilirubin 0.4 , Aspartate Amino Transf (AST/SGOT) 47H, Alanine Aminotransferase (ALT/SGPT) 64 , Alkaline Phosphatase 65, Total Protein 6.2L, Albumin 1.8L, Globulin 4.4, Albumin/Globulin Ratio 0.4L 09/18/19 07:27: Arterial Blood pH 7.440, Arterial Blood Partial Pressure CO2 39.4, Arterial Blood Partial Pressure O2 69.7L, Arterial Blood HCO3 26.2H, Arterial Blood Oxygen Saturation 93.5L, Arterial Blood Base Excess 1.9, Dax Test Positive Current Medications Medications (Trade) Dose Ordered Sig/Sharda Route PRN Reason Start Time Stop Time Status Last Admin Dose Admin Acetaminophen (Tylenol) 325 mg Q6H PRN GT Mild Pain (Pain Scale 1-3) 09/17/19 08:15 10/17/19 08:14 Albuterol/ Ipratropium (Albuterol/ Ipratropium) 3 ml Q4H PRN HHN Shortness of Breath 09/17/19 08:15 09/22/19 08:14 Atenolol (Tenormin) 25 mg DAILY GT 09/17/19 09:00 10/17/19 08:59 09/17/19 09:53 Atorvastatin Calcium (Lipitor) 20 mg BEDTIME GT 09/17/19 21:00 12/16/19 20:59 09/17/19 21:43 Flecainide Acetate (Tambocor) 50 mg BID GT 09/17/19 09:00 12/16/19 08:59 09/17/19 17:47 Lansoprazole (Prevacid) 30 mg DAILY GT 09/17/19 09:00 10/17/19 08:59 09/17/19 09:53 Piperacillin Sod/ Tazobactam Sod 3.375 gm/Sodium Chloride 110 ml @ 27.5 mls/hr EVERY 8 HOURS IVPB 09/17/19 06:00 09/22/19 05:59 09/18/19 06:30 Sodium Chloride 1,000 ml @ 100 mls/hr Q10H IV 09/17/19 06:00 10/17/19 05:59 09/18/19 02:57 Vancomycin HCl ([facility] pharmacy to dose) 1 ea DAILY MISC 09/17/19 09:00 10/17/19 08:59 Assessment/Plan Assessment/Plan IMPRESSION: Possible pneumonia, lung mass, history of cancer, history of smoking, history of CVA, history of aspiration, hypernatremia, acute renal failure, leukocytosis, possible sepsis. PLAN care noted monitor changes defer biopsy or work up for now obtain records if able monitor imaging care reviewed and discussed impression, plan, and exam edited and reviewed in detail care discussed with Real Roberson MD Sep 18, 2019 08:18
--- NOTE | 2019-09-18 08:59 | General Progress Note ---
Assessment/Plan Problem List: (1) HCAP (healthcare-associated pneumonia) ICD Codes: J18.9 - Pneumonia, unspecified organism SNOMED: 692043762, 155543010 (2) UTI (urinary tract infection) ICD Codes: N39.0 - Urinary tract infection, site not specified SNOMED: 81629979, 569215068 Qualifiers: Qualified Codes: N30.00 - Acute cystitis without hematuria (3) Sepsis ICD Codes: A41.9 - Sepsis, unspecified organism SNOMED: 66333416, 82326822 Qualifiers: Qualified Codes: A41.9 - Sepsis, unspecified organism; R65.20 - Severe sepsis without septic shock; N17.9 - Acute kidney failure, unspecified (4) Encephalopathy due to infection ICD Codes: G93.49 - Other encephalopathy; B99.9 - Unspecified infectious disease SNOMED: 71847563, 05445732 (5) Metastatic lung cancer (metastasis from lung to other site) ICD Codes: C34.90 - Malignant neoplasm of unspecified part of unspecified bronchus or lung SNOMED: 46777634, 639089597 Qualifiers: Qualified Codes: C34.90 - Malignant neoplasm of unspecified part of unspecified bronchus or lung (6) CVA (cerebral vascular accident) ICD Codes: I63.9 - Cerebral infarction, unspecified SNOMED: 262427099, 871416501 Qualifiers: Qualified Codes: I63.9 - Cerebral infarction, unspecified (7) ARF (acute renal failure) ICD Codes: N17.9 - Acute kidney failure, unspecified SNOMED: 73041161, 630659312 Qualifiers: Qualified Codes: N17.9 - Acute kidney failure, unspecified (8) Dehydration ICD Codes: E86.0 - Dehydration SNOMED: 30689021, 529311484 (9) Anemia ICD Codes: D64.9 - Anemia, unspecified SNOMED: 038663129, 614172253 Qualifiers: Qualified Codes: D64.9 - Anemia, unspecified Status: stable, not improved, unchanged Assessment/Plan: ivf adjusted repeat labs later today and in am resp rx titrate o2 monitor abg monitor cxr iv abx follow up cultures venous duplex legs d/w dtr- pt is full code with aggressive care. she is aware prognosis is poor Subjective Constitutional: Reports: malaise, weakness HEENT: Reports: no symptoms Cardiovascular: Reports: no symptoms Respiratory: Reports: cough, shortness of breath Gastrointestinal/Abdominal: Reports: difficulty swallowing Genitourinary: Reports: no symptoms Neurologic/Psychiatric: Reports: pre-existing deficit Endocrine: Reports: no symptoms Hematologic/Lymphatic: Reports: no symptoms Allergies: Coded Allergies: No Known Allergies (Unverified , 09/17/19) All Systems: reviewed and negative except above Subjective no events. remains sob. on venti mask. on ivf and iv abx. confused/poorly responsive. on feeds. Objective Last 24 Hour Vital Signs Date Time Temp Pulse Resp B/P (MAP) Pulse Ox O2 Delivery O2 Flow Rate FiO2 09/18/19 08:18 96.3 87 22 115/73 (87) 99 09/18/19 08:18 96.9 87 22 125/73 (90) 99 09/18/19 07:00 96 Venturi Mask 14.0 55 09/18/19 04:00 96.9 83 18 140/61 (87) 96 09/18/19 04:00 78 09/18/19 00:00 97.7 75 18 132/78 (96) 96 09/18/19 00:00 76 09/17/19 21:00 Venturi Mask 09/17/19 20:00 98.9 73 18 141/66 (91) 99 09/17/19 20:00 73 09/17/19 19:54 96 Venturi Mask 15.0 55 09/17/19 16:00 98.3 80 20 144/67 (92) 97 09/17/19 16:00 68 09/17/19 12:00 66 09/17/19 12:00 100.4 89 18 96/50 (65) 97 09/17/19 09:53 66 142/58 09/17/19 09:07 98 Venturi Mask 8.0 35 09/17/19 09:00 Venturi Mask Intake and Output 09/17/19 09/18/19 18:59 06:59 Output Total 1200 ml 720 ml Balance -1200 ml -720 ml Output Urine Total 1200 ml 720 ml # Bowel Movements 3 1 Laboratory Tests 09/17/19 12:20: Arterial Blood pH 7.428, Arterial Blood Partial Pressure CO2 40.6, Arterial Blood Partial Pressure O2 69.2L, Arterial Blood HCO3 26.2H, Arterial Blood Oxygen Saturation 92.6L, Arterial Blood Base Excess 1.8, Dax Test Positive 09/17/19 20:00: Arterial Blood pH 7.434, Arterial Blood Partial Pressure CO2 37.4, Arterial Blood Partial Pressure O2 57.6L, Arterial Blood HCO3 24.5, Arterial Blood Oxygen Saturation 88.9*L, Arterial Blood Base Excess 0.4, Dax Test Positive 09/18/19 05:50: White Blood Count 10.0, Red Blood Count 3.29L, Hemoglobin 10.3L, Hematocrit 32.7L, Mean Corpuscular Volume 99, Mean Corpuscular Hemoglobin 31.4H, Mean Corpuscular Hemoglobin Concent 31.6L, Red Cell Distribution Width 14.5, Platelet Count 188, Mean Platelet Volume 7.2, Neutrophils (%) (Auto) , Lymphocytes (%) (Auto) , Monocytes (%) (Auto) , Eosinophils (%) (Auto) , Basophils (%) (Auto) , Neutrophils % (Manual) [Pending], Lymphocytes % (Manual) [Pending], Platelet Estimate [Pending], Platelet Morphology [Pending], Sodium Level 152H, Potassium Level 3.2L, Chloride Level 117H, Carbon Dioxide Level 29, Anion Gap 7, Blood Urea Nitrogen 33H, Creatinine 1.1, Estimat Glomerular Filtration Rate > 60, Glucose Level 125H, Calcium Level 8.9, Total Bilirubin 0.4 , Aspartate Amino Transf (AST/SGOT) 47H, Alanine Aminotransferase (ALT/SGPT) 64 , Alkaline Phosphatase 65, Total Protein 6.2L, Albumin 1.8L, Globulin 4.4, Albumin/Globulin Ratio 0.4L 09/18/19 07:27: Arterial Blood pH 7.440, Arterial Blood Partial Pressure CO2 39.4, Arterial Blood Partial Pressure O2 69.7L, Arterial Blood HCO3 26.2H, Arterial Blood Oxygen Saturation 93.5L, Arterial Blood Base Excess 1.9, Dax Test Positive Height (Feet): 5 Height (Inches): 10.00 Weight (Pounds): 155 General Appearance: WD/WN, mild distress, cachetic, thin EENT: normal ENT inspection Neck: non-tender, normal alignment, supple Cardiovascular: normal peripheral pulses, normal rate, regular rhythm Respiratory/Chest: rhonchi - bilaterally Abdomen: normal bowel sounds, non tender, soft, no organomegaly Extremities: normal range of motion, non-tender Edema: no edema noted Arm (L), no edema noted Arm (R) Sherif Echevarria MD Sep 18, 2019 08:59
[2019-09-18] MEDS: Atenolol 25mg tab GT SCH (09:00)
--- NOTE | 2019-09-18 10:30 | NUR ---
RD ASSESSMENT & RECOMMENDATIONS SEE CARE ACTIVITY FOR COMPLETE ASSESSMENT DAILY ESTIMATED NEEDS: Needs based on Wound, cardiac 68.6 25-35 kcals/kg 9627-8526 total kcals 1.25-2 g protein/kg 86-137 g total protein 25-30 mL/kg 4979-1758 total fluid mLs NUTRITION DIAGNOSIS: Swallowing difficulty r/t dysphagia as evidenced by pt is PEG dep. CURRENT TF: Glucerna 1.5 @20 ENTERAL NUTRITION RECOMMENDATIONS: Increase current TF of Glucerna 1.5 to goal of 50ml/hr x24 hrs to provide 1200ml, 1800 kcal, 99g pro, 911ml free H2O - rec to increase as able 10ml q4-6 hrs to goal of 50ml/hr for 24 hrs to meet 100% est kcal and pro needs. - Flush per MD. HOB over 30 degrees ADDITIONAL RECOMMENDATIONS: 1) Maintain calibrated bedscale wts 2) Replete lytes as needed (K low 3.2) 3) Wound care: NARCISO in 4oz water BID. F/up w/ WC eval
--- NOTE | 2019-09-18 10:37 | Infectious Diseases Prog Note ---
Assessment/Plan Assessment/Plan A; 1. Likely postobstructive pneumonia. 2. COVID-19 rapid test is negative. 3. Atrial fibrillation. 4. CVA. 5. Lung cancer. 6. Hypernatremia 7. Acute renal failure PLAN: 1. Continue Zosyn and IV vancomycin. 2. We will follow sputum culture Subjective ROS Limited/Unobtainable: Yes Constitutional: Denies: fever Allergies: Coded Allergies: No Known Allergies (Unverified , 09/17/19) Objective Last 24 Hour Vital Signs Date Time Temp Pulse Resp B/P (MAP) Pulse Ox O2 Delivery O2 Flow Rate FiO2 09/18/19 09:00 87 125/73 09/18/19 08:18 96.3 87 22 115/73 (87) 99 09/18/19 08:18 96.9 87 22 125/73 (90) 99 09/18/19 08:00 79 09/18/19 07:00 96 Venturi Mask 14.0 55 09/18/19 04:00 96.9 83 18 140/61 (87) 96 09/18/19 04:00 78 09/18/19 00:00 97.7 75 18 132/78 (96) 96 09/18/19 00:00 76 09/17/19 21:00 Venturi Mask 09/17/19 20:00 98.9 73 18 141/66 (91) 99 09/17/19 20:00 73 09/17/19 19:54 96 Venturi Mask 15.0 55 09/17/19 16:00 98.3 80 20 144/67 (92) 97 09/17/19 16:00 68 09/17/19 12:00 66 09/17/19 12:00 100.4 89 18 96/50 (65) 97 Height (Feet): 5 Height (Inches): 10.00 Weight (Pounds): 155 HEENT: mucous membranes moist Respiratory/Chest: decreased breath sounds, rhonchi - bilaterally, [facility] Cardiovascular: normal rate, other - R arm PICC line Abdomen: soft, non tender Extremities: no edema Neurologic/Psychiatric: unresponsiveness Musculoskeletal: atrophy Microbiology Date/Time Source Procedure Growth Status 09/17/19 00:25 Blood Blood Culture - Preliminary NO GROWTH AFTER 24 HOURS Resulted 09/17/19 00:10 Blood Blood Culture - Preliminary NO GROWTH AFTER 24 HOURS Resulted 09/17/19 17:50 Sputum Gram Stain - Final Resulted 09/17/19 17:50 Sputum Sputum Culture Pending Resulted 09/17/19 00:33 Nasopharynx SARS-CoV-2 RdRp Gene Assay - Final Complete 09/17/19 00:15 Urine,Clean Catch Urine Culture - Preliminary NO GROWTH Resulted 09/17/19 01:10 Rectum Received Laboratory Tests Test 09/17/19 12:20 09/17/19 20:00 09/18/19 05:50 09/18/19 07:27 Arterial Blood pH 7.428 (7.350-7.450) 7.434 (7.350-7.450) 7.440 (7.350-7.450) Arterial Blood Partial Pressure CO2 40.6 mmHg (35.0-45.0) 37.4 mmHg (35.0-45.0) 39.4 mmHg (35.0-45.0) Arterial Blood Partial Pressure O2 69.2 mmHg (75.0-100.0) L 57.6 mmHg (75.0-100.0) L 69.7 mmHg (75.0-100.0) L Arterial Blood HCO3 26.2 mmol/L (22.0-26.0) H 24.5 mmol/L (22.0-26.0) 26.2 mmol/L (22.0-26.0) H Arterial Blood Oxygen Saturation 92.6 % (95-100) L 88.9 % (95-100) *L 93.5 % (95-100) L Arterial Blood Base Excess 1.8 (-2-2) 0.4 (-2-2) 1.9 (-2-2) Dax Test Positive Positive Positive White Blood Count 10.0 K/UL (4.8-10.8) Red Blood Count 3.29 M/UL (4.70-6.10) L Hemoglobin 10.3 G/DL (14.2-18.0) L Hematocrit 32.7 % (42.0-52.0) L Mean Corpuscular Volume 99 FL (80-99) Mean Corpuscular Hemoglobin 31.4 PG (27.0-31.0) H Mean Corpuscular Hemoglobin Concent 31.6 G/DL (32.0-36.0) L Red Cell Distribution Width 14.5 % (11.6-14.8) Platelet Count 188 K/UL (150-450) Mean Platelet Volume 7.2 FL (6.5-10.1) Neutrophils (%) (Auto) % (45.0-75.0) Lymphocytes (%) (Auto) % (20.0-45.0) Monocytes (%) (Auto) % (1.0-10.0) Eosinophils (%) (Auto) % (0.0-3.0) Basophils (%) (Auto) % (0.0-2.0) Differential Total Cells Counted 100 Neutrophils % (Manual) 92 % (45-75) H Lymphocytes % (Manual) 6 % (20-45) L Monocytes % (Manual) 1 % (1-10) Eosinophils % (Manual) 1 % (0-3) Basophils % (Manual) 0 % (0-2) Band Neutrophils 0 % (0-8) Platelet Estimate Adequate Platelet Morphology Normal Polychromasia 1+ Hypochromasia 1+ Anisocytosis 1+ Sodium Level 152 MMOL/L (136-145) H Potassium Level 3.2 MMOL/L (3.5-5.1) L Chloride Level 117 MMOL/L (98-107) H Carbon Dioxide Level 29 MMOL/L (21-32) Anion Gap 7 mmol/L (5-15) Blood Urea Nitrogen 33 mg/dL (7-18) H Creatinine 1.1 MG/DL (0.55-1.30) Estimat Glomerular Filtration Rate > 60 mL/min (>60) Glucose Level 125 MG/DL (74-106) H Calcium Level 8.9 MG/DL (8.5-10.1) Total Bilirubin 0.4 MG/DL (0.2-1.0) Aspartate Amino Transf (AST/SGOT) 47 U/L (15-37) H Alanine Aminotransferase (ALT/SGPT) 64 U/L (12-78) Alkaline Phosphatase 65 U/L (46-116) Total Protein 6.2 G/DL (6.4-8.2) L Albumin 1.8 G/DL (3.4-5.0) L Globulin 4.4 g/dL Albumin/Globulin Ratio 0.4 (1.0-2.7) L Current Medications Medications (Trade) Dose Ordered Sig/Sharda Route PRN Reason Start Time Stop Time Status Last Admin Dose Admin Acetaminophen (Tylenol) 325 mg Q6H PRN GT Mild Pain (Pain Scale 1-3) 09/17/19 08:15 10/17/19 08:14 Albuterol/ Ipratropium (Albuterol/ Ipratropium) 3 ml Q4H PRN HHN Shortness of Breath 09/17/19 08:15 09/22/19 08:14 Atenolol (Tenormin) 25 mg DAILY GT 09/17/19 09:00 10/17/19 08:59 09/18/19 09:00 Atorvastatin Calcium (Lipitor) 20 mg BEDTIME GT 09/17/19 21:00 12/16/19 20:59 09/17/19 21:43 Dextrose 1,000 ml @ 100 mls/hr Q10H IV 09/18/19 08:57 10/18/19 08:56 09/18/19 09:05 Flecainide Acetate (Tambocor) 50 mg BID GT 09/17/19 09:00 12/16/19 08:59 09/18/19 09:00 Lansoprazole (Prevacid) 30 mg DAILY GT 09/17/19 09:00 10/17/19 08:59 09/18/19 09:00 Piperacillin Sod/ Tazobactam Sod 3.375 gm/Sodium Chloride 110 ml @ 27.5 mls/hr EVERY 8 HOURS IVPB 09/17/19 06:00 09/22/19 05:59 09/18/19 06:30 Vancomycin HCl ([facility] pharmacy to dose) 1 ea DAILY MISC 09/17/19 09:00 10/17/19 08:59 Nick Hector MD Sep 18, 2019 10:37
[2019-09-18 12:00] VITALS: BP 133/60
--- NOTE | 2019-09-18 15:49 | NUR ---
NURSE NOTES:WOUND CARE NOTES:Pt presented on admission with multiple Pressure injuries. Partial thickness Pressure Injury R Scapula(L)1.5cm x (W)2.5cm. [place] epithelial at base of wound. Edges adherent to base of wound. No erythema or evidence of skin breakdown periwound. DTPI Sacrococcygeal area(L)1.5cm x (W)3.1cm. Base of pressure injury is purpuric ,indurated with surrounding maroon borders. Incontinence Associated Dermatitis periwound Perianally, R and L Gluteus including both ischium and scrotum. Skin is erythematous with scattered areas of maceration. DTPI medial R Heel(L)4.7cmx (W)5.2cm..Intact blood filled blister noted . Marginal erythema along borders . Periwound, R Heel is boggy but blanchable. L Heel is boggy with non-blanchable erythema. Tx.Plan:Cover wound R Scapula with Optifoam drsg. Change every 7 days and prn. Apply Moisture Barrier Paste to Sacrococcygeal wound. Cover with Optifoam drsg. Change every 3 days and prn. Apply Moisture Barrier Paste to Groin,Scrotum , Buttocks with each incontinence care. Apply Betadine to R Heel. Cover with Optifoam drsg. Changee very 3 days and prn. Apply Cavilon Skin Barrier to L Heel. Cover with Optifoam drsg. Change every 7 days and prn. Reposition at least every 2hours or as tolerated. Off-load heels with Pillow. APM/CRUZITO Mattress overlay.
[2019-09-18 16:00] VITALS: BP 147/64
[2019-09-18 17:48] LABS: ANION GAP 6 mmol/L (5-15); BLOOD UREA NITROGEN 30 mg/dL (7-18); CALCIUM 8.6 MG/DL (8.5-10.1); CARBON DIOXIDE 31 MMOL/L (21-32); CHLORIDE 114 MMOL/L (98-107); POTASSIUM 3.4 MMOL/L (3.5-5.1); SODIUM 151 MMOL/L (136-145)
--- NOTE | 2019-09-18 19:30 | NUR ---
NURSE NOTES: Received hand-off report from JEFF Arredondo and Idalmis Alfredo RN. Patient in stable condition. Arnulfo from vendor delivered and assisted in placing low air mattress. Patient is in stable condition, breathing is unlabored and even, spO2: 93%, venturi mask is on at prescribed oxygen flow rate, left soft wrist restraint is in place. Skin under left wrist restraint are intact, no redness or any abnormalities noted and bilateral peripheral pulses +2, skin is warm to touch. Heels floated. Bed in semi-fowlers position. No changes in LOC noted, cafeteria monitor in place, alert and oriented x0, bed in lowest and locked position, call light within reach, bed alarm on.
--- NOTE | 2019-09-18 19:31 | NUR ---
HAND OFF Reported given to JEFF Hunt. Pt in stable condition. Plan of care endorsed.
[2019-09-18 20:00] VITALS: BP 139/53
[2019-09-18] MEDS: Atorvastatin 20mg tab GT SCH (21:53)
[2019-09-19] VITALS: BP 128/64
[2019-09-19 04:00] VITALS: BP 123/50
[2019-09-19] MEDS: Zosyn 3.375gm q8h **Extended infusion IVPB SCH ×6 (05:15→21:22)
--- NOTE | 2019-09-19 05:17 | NUR ---
NURSE NOTES: Notified RT for pulmonary hygiene. RT, Alejandro on the way.
--- NOTE | 2019-09-19 07:05 | NUR ---
HAND-OFF: Report given to JEFF Arredondo. Patient in stable condition, spo2 95%, venturi mask on, respirations 20. Plan of care endorsed.
[2019-09-19 08:00] VITALS: BP 138/59
--- NOTE | 2019-09-19 08:00 | NUR ---
NURSE NOTES: Pt obtunded in bed breathing easily on venturi mask 8 lpm at 40% with occasional weak productive cough. Vitals signs stable with SR @ 70 on monitor. IV access MICHELL midline D5 @ 100 ml/hr. Soft wrist restraint on LEFT wrist to prevent pt from pulling O2 mask and vázquez. No swelling/discoloration with good neuro and cap refill. Vázquez in place draining into collection bag at foot of bed. G-tube feeding with Glu 1.5 running at 20 ml/hr, 0 residual and 100 ml free water flush given.P200 mattress in place and running. Bed left in low position, side rails up x 3 and call light left near pt's hand.
--- NOTE | 2019-09-19 08:59 | Pulmonology Progress Note ---
Subjective ROS Limited/Unobtainable: Yes Constitutional: Denies: fever Allergies: Coded Allergies: No Known Allergies (Unverified , 09/17/19) All Systems: reviewed and negative except above Subjective care noted on oxygen no distress Objective Last 24 Hour Vital Signs Date Time Temp Pulse Resp B/P (MAP) Pulse Ox O2 Delivery O2 Flow Rate FiO2 09/19/19 07:08 97 Venturi Mask 8.0 40 09/19/19 04:00 97.0 81 20 123/50 (74) 94 09/19/19 04:00 81 09/19/19 00:00 79 09/19/19 00:00 97.7 79 20 128/64 (85) 95 09/18/19 22:58 95 Venturi Mask 8.0 40 09/18/19 21:00 Venturi Mask 09/18/19 20:00 96.8 76 20 139/53 (81) 94 09/18/19 20:00 76 09/18/19 16:00 62 09/18/19 16:00 97.3 82 20 147/64 (91) 97 09/18/19 12:00 67 09/18/19 12:00 97.7 18 133/60 (84) 100 09/18/19 09:00 Venturi Mask 09/18/19 09:00 87 125/73 Intake and Output 09/18/19 09/19/19 19:00 07:00 Output Total 625 ml Balance -625 ml Output Urine Total 625 ml # Bowel Movements 1 Objective GENERAL: Patient is an ill-appearing male. NECK: Supple. LUNGS: With coarse breath sounds, moderate air entry. CARDIAC: Regular rate and rhythm with soft systolic murmur. ABDOMEN: Soft, nontender. No distention. EXTREMITIES: No cyanosis or clubbing. No edema. NEUROLOGIC: Weak, confused overall. reviewed and edited Microbiology Date/Time Source Procedure Growth Status 09/17/19 00:25 Blood Blood Culture - Preliminary NO GROWTH AFTER 48 HOURS Resulted 09/17/19 00:10 Blood Blood Culture - Preliminary NO GROWTH AFTER 48 HOURS Resulted 09/17/19 17:50 Sputum Gram Stain - Final Complete 09/17/19 17:50 Sputum Culture - Final Heidy Albicans Usual Respiratory Rachna Complete 09/17/19 01:10 Nasal Nares MRSA Culture - Final NO METHICILLIN RESISTANT STAPH AUREUS... Complete 09/17/19 00:33 Nasopharynx SARS-CoV-2 RdRp Gene Assay - Final Complete 09/17/19 00:15 Urine,Clean Catch Urine Culture - Preliminary NO GROWTH AFTER 24 HOURS Resulted 09/17/19 01:10 Rectum - Final NO CARBAPENEM-RESISTANT ENTEROBACTERI... Complete 09/17/19 01:10 Rectum VRE Culture - Final NO VANCOMYCIN RESISTANT ENTEROCOCCUS ... Complete Laboratory Tests 09/18/19 17:00: Sodium Level 151H, Potassium Level 3.4L, Chloride Level 114H, Carbon Dioxide Level 31, Anion Gap 6, Blood Urea Nitrogen 30H, Creatinine 1.0, Estimat Glomerular Filtration Rate > 60, Glucose Level 136H, Calcium Level 8.6 09/19/19 07:50: Sodium Level [Pending], Potassium Level [Pending], Chloride Level [Pending], Carbon Dioxide Level [Pending], Blood Urea Nitrogen [Pending], Creatinine [ Pending], Estimat Glomerular Filtration Rate [Pending], Glucose Level [Pending] , Calcium Level [Pending], Random Vancomycin Level [Pending] Current Medications Medications (Trade) Dose Ordered Sig/Sharda Route PRN Reason Start Time Stop Time Status Last Admin Dose Admin Acetaminophen (Tylenol) 325 mg Q6H PRN GT Mild Pain (Pain Scale 1-3) 09/17/19 08:15 10/17/19 08:14 Albuterol/ Ipratropium (Albuterol/ Ipratropium) 3 ml Q4H PRN HHN Shortness of Breath 09/17/19 08:15 09/22/19 08:14 Atenolol (Tenormin) 25 mg DAILY GT 09/17/19 09:00 10/17/19 08:59 09/18/19 09:00 Atorvastatin Calcium (Lipitor) 20 mg BEDTIME GT 09/17/19 21:00 12/16/19 20:59 09/18/19 21:53 Dextrose 1,000 ml @ 100 mls/hr Q10H IV 09/18/19 08:57 10/18/19 08:56 09/19/19 05:15 Flecainide Acetate (Tambocor) 50 mg BID GT 09/17/19 09:00 12/16/19 08:59 09/18/19 17:41 Lansoprazole (Prevacid) 30 mg DAILY GT 09/17/19 09:00 10/17/19 08:59 09/18/19 09:00 Piperacillin Sod/ Tazobactam Sod 3.375 gm/Sodium Chloride 110 ml @ 27.5 mls/hr EVERY 8 HOURS IVPB 09/17/19 06:00 09/22/19 05:59 09/19/19 05:15 Vancomycin HCl (Vanco pharmacy to dose) 1 ea DAILY PRN MISC . 09/18/19 11:15 10/18/19 11:14 Assessment/Plan Assessment/Plan IMPRESSION: Possible pneumonia, lung mass, history of cancer, history of smoking, history of CVA, history of aspiration, hypernatremia, acute renal failure, leukocytosis, possible sepsis. PLAN care noted monitor changes defer biopsy or work up for now obtain records if able to discuss further monitor imaging care reviewed and discussed impression, plan, and exam edited and reviewed in detail care discussed with Real Roberson MD Sep 19, 2019 08:59
[2019-09-19] MEDS: Atenolol 25mg tab GT SCH (09:09)
[2019-09-19 09:12] LABS: ANION GAP 7 mmol/L (5-15); BLOOD UREA NITROGEN 23 mg/dL (7-18); CALCIUM 8.6 MG/DL (8.5-10.1); CARBON DIOXIDE 32 MMOL/L (21-32); CHLORIDE 111 MMOL/L (98-107); POTASSIUM 2.9 MMOL/L (3.5-5.1); SODIUM 150 MMOL/L (136-145)
--- NOTE | 2019-09-19 09:45 | NUR ---
NURSES NOTE: Received a call from [facility] regarding pt and when pt was discharging andf if he would still be on IV ATB. Notified Glendy LANG on her voicemail regarding the call. Awaiting a call back.
--- NOTE | 2019-09-19 10:18 | Infectious Diseases Prog Note ---
Assessment/Plan Assessment/Plan antibiotics : vancomycin iv, zosyn A 1. post obstructive pneumonia COVID 19 rapid test negative 2. lung cancer 3. CVA 4. hypertension P 1. continue zosyn 2. d/c iv vancomycin 3. will follow up cultures Subjective ROS Limited/Unobtainable: Yes Allergies: Coded Allergies: No Known Allergies (Unverified , 09/17/19) Objective Last 24 Hour Vital Signs Date Time Temp Pulse Resp B/P (MAP) Pulse Ox O2 Delivery O2 Flow Rate FiO2 09/19/19 09:09 81 123/50 09/19/19 08:00 96.6 77 138/59 (85) 09/19/19 08:00 73 09/19/19 07:08 97 Venturi Mask 8.0 40 09/19/19 04:00 97.0 81 20 123/50 (74) 94 09/19/19 04:00 81 09/19/19 00:00 79 09/19/19 00:00 97.7 79 20 128/64 (85) 95 09/18/19 22:58 95 Venturi Mask 8.0 40 09/18/19 21:00 Venturi Mask 09/18/19 20:00 96.8 76 20 139/53 (81) 94 09/18/19 20:00 76 09/18/19 16:00 62 09/18/19 16:00 97.3 82 20 147/64 (91) 97 09/18/19 12:00 67 09/18/19 12:00 97.7 18 133/60 (84) 100 Height (Feet): 5 Height (Inches): 10.00 Weight (Pounds): 155 Respiratory/Chest: lungs clear Cardiovascular: normal rate, regular rhythm, no gallop/murmur Abdomen: soft, non tender Extremities: no edema Microbiology Date/Time Source Procedure Growth Status 09/17/19 00:25 Blood Blood Culture - Preliminary NO GROWTH AFTER 48 HOURS Resulted 09/17/19 00:10 Blood Blood Culture - Preliminary NO GROWTH AFTER 48 HOURS Resulted 09/17/19 17:50 Sputum Gram Stain - Final Complete 09/17/19 17:50 Sputum Culture - Final Heidy Albicans Usual Respiratory Rachna Complete 09/17/19 01:10 Nasal Nares MRSA Culture - Final NO METHICILLIN RESISTANT STAPH AUREUS... Complete 09/17/19 00:33 Nasopharynx SARS-CoV-2 RdRp Gene Assay - Final Complete 09/17/19 00:15 Urine,Clean Catch Urine Culture - Preliminary NO GROWTH AFTER 24 HOURS Resulted 09/17/19 01:10 Rectum - Final NO CARBAPENEM-RESISTANT ENTEROBACTERI... Complete 09/17/19 01:10 Rectum VRE Culture - Final NO VANCOMYCIN RESISTANT ENTEROCOCCUS ... Complete Laboratory Tests Test 09/18/19 17:00 09/19/19 07:50 Sodium Level 151 MMOL/L (136-145) H 150 MMOL/L (136-145) H Potassium Level 3.4 MMOL/L (3.5-5.1) L 2.9 MMOL/L (3.5-5.1) L Chloride Level 114 MMOL/L (98-107) H 111 MMOL/L (98-107) H Carbon Dioxide Level 31 MMOL/L (21-32) 32 MMOL/L (21-32) Anion Gap 6 mmol/L (5-15) 7 mmol/L (5-15) Blood Urea Nitrogen 30 mg/dL (7-18) H 23 mg/dL (7-18) H Creatinine 1.0 MG/DL (0.55-1.30) 1.0 MG/DL (0.55-1.30) Estimat Glomerular Filtration Rate > 60 mL/min (>60) > 60 mL/min (>60) Glucose Level 136 MG/DL (74-106) H 144 MG/DL (74-106) H Calcium Level 8.6 MG/DL (8.5-10.1) 8.6 MG/DL (8.5-10.1) Random Vancomycin Level 2.7 ug/mL Current Medications Medications (Trade) Dose Ordered Sig/Sharda Route PRN Reason Start Time Stop Time Status Last Admin Dose Admin Acetaminophen (Tylenol) 325 mg Q6H PRN GT Mild Pain (Pain Scale 1-3) 09/17/19 08:15 10/17/19 08:14 Albuterol/ Ipratropium (Albuterol/ Ipratropium) 3 ml Q4H PRN HHN Shortness of Breath 09/17/19 08:15 09/22/19 08:14 Atenolol (Tenormin) 25 mg DAILY GT 09/17/19 09:00 10/17/19 08:59 09/19/19 09:09 Atorvastatin Calcium (Lipitor) 20 mg BEDTIME GT 09/17/19 21:00 12/16/19 20:59 09/18/19 21:53 Dextrose 1,000 ml @ 100 mls/hr Q10H IV 09/18/19 08:57 10/18/19 08:56 09/19/19 05:15 Flecainide Acetate (Tambocor) 50 mg BID GT 09/17/19 09:00 12/16/19 08:59 09/19/19 09:09 Lansoprazole (Prevacid) 30 mg DAILY GT 09/17/19 09:00 10/17/19 08:59 09/19/19 09:09 Piperacillin Sod/ Tazobactam Sod 3.375 gm/Sodium Chloride 110 ml @ 27.5 mls/hr EVERY 8 HOURS IVPB 09/17/19 06:00 09/22/19 05:59 09/19/19 05:15 Vancomycin HCl (Vanco pharmacy to dose) 1 ea DAILY PRN MISC . 09/18/19 11:15 10/18/19 11:14 Vancomycin HCl 750 mg/Sodium Chloride 275 ml @ 183.333 mls/hr Q12HR@0000,1200 IVPB 09/20/19 00:00 09/25/19 00:00 Vancomycin/Sodium Chloride 275 ml @ 137.5 mls/ hr ONCE ONCE IVPB 09/19/19 12:00 09/19/19 13:59 Jitendra Hubbard MD Sep 19, 2019 10:18
--- NOTE | 2019-09-19 11:28 | General Progress Note ---
Assessment/Plan Problem List: (1) HCAP (healthcare-associated pneumonia) ICD Codes: J18.9 - Pneumonia, unspecified organism SNOMED: 434284934, 761723468 (2) UTI (urinary tract infection) ICD Codes: N39.0 - Urinary tract infection, site not specified SNOMED: 29432076, 934789422 Qualifiers: Qualified Codes: N30.00 - Acute cystitis without hematuria (3) Sepsis ICD Codes: A41.9 - Sepsis, unspecified organism SNOMED: 16347103, 37907179 Qualifiers: Qualified Codes: A41.9 - Sepsis, unspecified organism; R65.20 - Severe sepsis without septic shock; N17.9 - Acute kidney failure, unspecified (4) Encephalopathy due to infection ICD Codes: G93.49 - Other encephalopathy; B99.9 - Unspecified infectious disease SNOMED: 99601406, 41488330 (5) Metastatic lung cancer (metastasis from lung to other site) ICD Codes: C34.90 - Malignant neoplasm of unspecified part of unspecified bronchus or lung SNOMED: 14105438, 896079458 Qualifiers: Qualified Codes: C34.90 - Malignant neoplasm of unspecified part of unspecified bronchus or lung (6) CVA (cerebral vascular accident) ICD Codes: I63.9 - Cerebral infarction, unspecified SNOMED: 211447085, 730537676 Qualifiers: Qualified Codes: I63.9 - Cerebral infarction, unspecified (7) ARF (acute renal failure) ICD Codes: N17.9 - Acute kidney failure, unspecified SNOMED: 10520847, 914580559 Qualifiers: Qualified Codes: N17.9 - Acute kidney failure, unspecified (8) Dehydration ICD Codes: E86.0 - Dehydration SNOMED: 14973399, 365282349 (9) Anemia ICD Codes: D64.9 - Anemia, unspecified SNOMED: 042299888, 300593967 Qualifiers: Qualified Codes: D64.9 - Anemia, unspecified Status: stable, not improved, unchanged Assessment/Plan: ivf increase water flushes tube feeds monitor residuals resp rx titrate o2- wean as able monitor abg monitor cxr iv abx follow up cultures venous duplex legs d/w dtr- pt is full code with aggressive care. she is aware prognosis is poor Subjective ROS Limited/Unobtainable: Yes Constitutional: Reports: malaise, weakness HEENT: Reports: no symptoms Cardiovascular: Reports: no symptoms Respiratory: Reports: cough, shortness of breath Gastrointestinal/Abdominal: Reports: difficulty swallowing Genitourinary: Reports: no symptoms Neurologic/Psychiatric: Reports: depressed, pre-existing deficit Endocrine: Reports: no symptoms Hematologic/Lymphatic: Reports: no symptoms Allergies: Coded Allergies: No Known Allergies (Unverified , 09/17/19) All Systems: reviewed and negative except above Subjective No significant changes overnight. Remains withdrawn somnolent and lethargic. On Ventimask. Mild congestion noted. Labs reviewed. Tolerating feeds. Sodium remains elevated. Objective Last 24 Hour Vital Signs Date Time Temp Pulse Resp B/P (MAP) Pulse Ox O2 Delivery O2 Flow Rate FiO2 09/19/19 09:09 81 123/50 09/19/19 09:00 Venturi Mask 09/19/19 08:00 96.6 77 138/59 (85) 09/19/19 08:00 73 09/19/19 07:08 97 Venturi Mask 8.0 40 09/19/19 04:00 97.0 81 20 123/50 (74) 94 09/19/19 04:00 81 09/19/19 00:00 79 09/19/19 00:00 97.7 79 20 128/64 (85) 95 09/18/19 22:58 95 Venturi Mask 8.0 40 09/18/19 21:00 Venturi Mask 09/18/19 20:00 96.8 76 20 139/53 (81) 94 09/18/19 20:00 76 09/18/19 16:00 62 09/18/19 16:00 97.3 82 20 147/64 (91) 97 09/18/19 12:00 67 09/18/19 12:00 97.7 18 133/60 (84) 100 Intake and Output 09/18/19 09/19/19 19:00 07:00 Output Total 625 ml Balance -625 ml Output Urine Total 625 ml # Bowel Movements 1 Laboratory Tests 09/18/19 17:00: Sodium Level 151H, Potassium Level 3.4L, Chloride Level 114H, Carbon Dioxide Level 31, Anion Gap 6, Blood Urea Nitrogen 30H, Creatinine 1.0, Estimat Glomerular Filtration Rate > 60, Glucose Level 136H, Calcium Level 8.6 09/19/19 07:50: Sodium Level 150H, Potassium Level 2.9L, Chloride Level 111H, Carbon Dioxide Level 32, Anion Gap 7, Blood Urea Nitrogen 23H, Creatinine 1.0, Estimat Glomerular Filtration Rate > 60, Glucose Level 144H, Calcium Level 8.6, Random Vancomycin Level 2.7 Height (Feet): 5 Height (Inches): 10.00 Weight (Pounds): 155 Objective General Appearance: WD/WN, mild distress, cachetic, thin EENT: normal ENT inspection Neck: non-tender, normal alignment, supple Cardiovascular: normal peripheral pulses, normal rate, regular rhythm Respiratory/Chest: rhonchi - bilaterally Abdomen: normal bowel sounds, non tender, soft, no organomegaly Extremities: normal range of motion, non-tender Edema: no edema noted Arm (L), no edema noted Arm (R) Sherif Echevarria MD Sep 19, 2019 11:28
[2019-09-19 12:00] VITALS: BP 123/65
[2019-09-19] MEDS ORDERED: Vancomycin 1.5gm/NS Premix IVPB ONE (12:00)
--- NOTE | 2019-09-19 12:01 | Consultation ---
History of Present Illness General Date patient seen: Sep 19, 2019 Chief Complaint: Dyspnea/Respdistress Present Illness HPI 84-year-old Sinhala male with a history of metastatic lung cancer, recent CVA, A. fib who presents with chief complaint of shortness of breath. Patient had a prolonged hospitalization at [facility] and was recently discharged to halfway. During hospitalization his cover test was negative. Per halfway staff, he had a negative cover test 3 days ago. He presents with shortness of breath. Onset tonight. Per EMS, he was 90% on room air. No reported fever. No reported cough. History is from EMS and halfway note. Patient unable to give a history. Patient minute further care and management. On admission identified to have leukocytosis, hypoalbuminemia, abnormal labs, decubitus skin ulcers. Surgery called to eval and assist with care. Patient seen, patient evaluate, chart reviewed Allergies: Coded Allergies: No Known Allergies (Unverified , 09/17/19) Medication History Scheduled Aspirin* (Aspir 81*), 81 MG GT DAILY, (Reported) Atenolol* (Tenormin*), 25 MG GT DAILY, (Reported) Atorvastatin Calcium* (Lipitor*), 20 MG GT BEDTIME, (Reported) Bisacodyl* (Dulcolax*), 10 MG ORAL DAILY, (Reported) Flecainide Acetate* (Tambocor*), 50 MG ORAL TWICE A DAY, (Reported) Pantoprazole* (Protonix*), 40 MG GT DAILY, (Reported) Scheduled PRN Acetaminophen* (Tylenol Extra Strength*), 325 MG GT Q6H PRN for Mild Pain/Temp > 100.5, (Reported) Albuterol Sulfate* (Albuterol Sulfate Hhn*), 3 ML INH Q4H PRN for Shortness of Breath, (Reported) Patient History Limited by: medical condition History Provided By: Medical Record, PMD Healthcare decision maker Resuscitation status Advanced Directive on File Past Medical/Surgical History Past Medical/Surgical History: (1) ARF (acute renal failure) (2) CVA (cerebral vascular accident) (3) Dehydration (4) Anemia (5) Metastatic lung cancer (metastasis from lung to other site) (6) Encephalopathy due to infection (7) Sepsis (8) UTI (urinary tract infection) (9) HCAP (healthcare-associated pneumonia) Review of Systems ROS Narrative Cannot obtain given patient's baseline medical condition at this time Physical Exam General Appearance: no apparent distress Lines, tubes and drains: peripheral HEENT: anicteric, mucous membranes moist Neck: normal inspection, limited range of motion Respiratory/Chest: chest wall non-tender, no respiratory distress, no accessory muscle use, decreased breath sounds Cardiovascular/Chest: normal rate, regular rhythm Abdomen: soft, no organomegaly, no mass, other Extremities: inflammation, slow capillary refill Skin Exam: warm/dry Neurologic: no motor/sensory deficits, alert Last 24 Hour Vital Signs Date Time Temp Pulse Resp B/P (MAP) Pulse Ox O2 Delivery O2 Flow Rate FiO2 09/19/19 09:09 81 123/50 09/19/19 09:00 Venturi Mask 09/19/19 08:00 96.6 77 138/59 (85) 09/19/19 08:00 73 09/19/19 07:08 97 Venturi Mask 8.0 40 09/19/19 04:00 97.0 81 20 123/50 (74) 94 09/19/19 04:00 81 09/19/19 00:00 79 09/19/19 00:00 97.7 79 20 128/64 (85) 95 09/18/19 22:58 95 Venturi Mask 8.0 40 09/18/19 21:00 Venturi Mask 09/18/19 20:00 96.8 76 20 139/53 (81) 94 09/18/19 20:00 76 09/18/19 16:00 62 09/18/19 16:00 97.3 82 20 147/64 (91) 97 09/18/19 12:00 67 09/18/19 12:00 97.7 18 133/60 (84) 100 Intake and Output 09/18/19 09/19/19 19:00 07:00 Output Total 625 ml Balance -625 ml Output Urine Total 625 ml # Bowel Movements 1 Laboratory Tests Test 09/18/19 17:00 09/19/19 07:50 Sodium Level 151 MMOL/L (136-145) H 150 MMOL/L (136-145) H Potassium Level 3.4 MMOL/L (3.5-5.1) L 2.9 MMOL/L (3.5-5.1) L Chloride Level 114 MMOL/L (98-107) H 111 MMOL/L (98-107) H Carbon Dioxide Level 31 MMOL/L (21-32) 32 MMOL/L (21-32) Anion Gap 6 mmol/L (5-15) 7 mmol/L (5-15) Blood Urea Nitrogen 30 mg/dL (7-18) H 23 mg/dL (7-18) H Creatinine 1.0 MG/DL (0.55-1.30) 1.0 MG/DL (0.55-1.30) Estimat Glomerular Filtration Rate > 60 mL/min (>60) > 60 mL/min (>60) Glucose Level 136 MG/DL (74-106) H 144 MG/DL (74-106) H Calcium Level 8.6 MG/DL (8.5-10.1) 8.6 MG/DL (8.5-10.1) Random Vancomycin Level 2.7 ug/mL Height (Feet): 5 Height (Inches): 10.00 Weight (Pounds): 155 Medications Current Medications Medications (Trade) Dose Ordered Sig/Sharda Route PRN Reason Start Time Stop Time Status Last Admin Dose Admin Acetaminophen (Tylenol) 325 mg Q6H PRN GT Mild Pain (Pain Scale 1-3) 09/17/19 08:15 10/17/19 08:14 Albuterol/ Ipratropium (Albuterol/ Ipratropium) 3 ml Q4H PRN HHN Shortness of Breath 09/17/19 08:15 09/22/19 08:14 Atenolol (Tenormin) 25 mg DAILY GT 09/17/19 09:00 10/17/19 08:59 09/19/19 09:09 Atorvastatin Calcium (Lipitor) 20 mg BEDTIME GT 09/17/19 21:00 12/16/19 20:59 09/18/19 21:53 Dextrose 1,000 ml @ 75 mls/hr [id number] IV 09/19/19 11:45 10/19/19 11:44 Flecainide Acetate (Tambocor) 50 mg BID GT 09/17/19 09:00 12/16/19 08:59 09/19/19 09:09 Lansoprazole (Prevacid) 30 mg DAILY GT 09/17/19 09:00 10/17/19 08:59 09/19/19 09:09 Piperacillin Sod/ Tazobactam Sod 3.375 gm/Sodium Chloride 110 ml @ 27.5 mls/hr EVERY 8 HOURS IVPB 09/17/19 06:00 09/22/19 05:59 09/19/19 05:15 Assessment/Plan Problem List: (1) ARF (acute renal failure) ICD Codes: N17.9 - Acute kidney failure, unspecified SNOMED: 01308945, 459842290 Qualifiers: Qualified Codes: N17.9 - Acute kidney failure, unspecified (2) CVA (cerebral vascular accident) ICD Codes: I63.9 - Cerebral infarction, unspecified SNOMED: 887995595, 853759328 Qualifiers: Qualified Codes: I63.9 - Cerebral infarction, unspecified (3) Dehydration ICD Codes: E86.0 - Dehydration SNOMED: 13284078, 041835132 (4) Anemia ICD Codes: D64.9 - Anemia, unspecified SNOMED: 582902119, 707578549 Qualifiers: Qualified Codes: D64.9 - Anemia, unspecified (5) Metastatic lung cancer (metastasis from lung to other site) ICD Codes: C34.90 - Malignant neoplasm of unspecified part of unspecified bronchus or lung SNOMED: 88799933, 942145214 Qualifiers: Qualified Codes: C34.90 - Malignant neoplasm of unspecified part of unspecified bronchus or lung (6) Encephalopathy due to infection ICD Codes: G93.49 - Other encephalopathy; B99.9 - Unspecified infectious disease SNOMED: 91090166, 21740993 (7) Sepsis Assessment & Plan: 84-year-old male presented with leukocytosis, hypokalemia, abnormal labs, malnutrition, hypoalbuminemia. Hypokalemia. Pt presented on admission with multiple Pressure injuries. Partial thickness Pressure Injury R Scapula(L)1.5cm x (W)2.5cm. Remer epithelial at base of wound. Edges adherent to base of wound. No erythema or evidence of skin breakdown periwound. DTPI Sacrococcygeal area(L)1.5cm x (W)3.1cm. Base of pressure injury is purpuric ,indurated with surrounding maroon borders. Incontinence Associated Dermatitis periwound Perianally, R and L Gluteus including both ischium and scrotum. Skin is erythematous with scattered areas of maceration. DTPI medial R Heel(L)4.7cmx (W)5.2cm..Intact blood filled blister noted . Marginal erythema along borders . Periwound, R Heel is boggy but blanchable. L Heel is boggy with non-blanchable erythema. Tx.Plan: Cover wound R Scapula with Optifoam drsg. Change every 7 days and prn. Apply Moisture Barrier Paste to Sacrococcygeal wound. Cover with Optifoam drsg. Change every 3 days and prn. Apply Moisture Barrier Paste to Groin,Scrotum , Buttocks with each incontinence care. Apply Betadine to R Heel. Cover with Optifoam drsg. Changee very 3 days and prn. Apply Cavilon Skin Barrier to L Heel. Cover with Optifoam drsg. Change every 7 days and prn. Reposition at least every 2hours or as tolerated. Off-load heels with Pillow. APM/CRUZITO Mattress overlay. Nutritional optimization Trend labs, Abx as per ID will follow with recs thank you DAILY ESTIMATED NEEDS: Needs based on Wound, cardiac 68.6 25-35 kcals/kg 5343-7445 total kcals 1.25-2 g protein/kg 86-137 g total protein 25-30 mL/kg 9966-0615 total fluid mLs NUTRITION DIAGNOSIS: Swallowing difficulty r/t dysphagia as evidenced by pt is PEG dep. CURRENT TF: Glucerna 1.5 @20 ENTERAL NUTRITION RECOMMENDATIONS: Increase current TF of Glucerna 1.5 to goal of 50ml/hr x24 hrs to provide 1200ml, 1800 kcal, 99g pro, 911ml free H2O - rec to increase as able 10ml q4-6 hrs to goal of 50ml/hr for 24 hrs to meet 100% est kcal and pro needs. - Flush per MD. HOB over 30 degrees ADDITIONAL RECOMMENDATIONS: 1) Maintain calibrated bedscale wts 2) Replete lytes as needed (K low 3.2) 3) Wound care: NARCISO in 4oz water BID. F/up w/ WC eval ICD Codes: A41.9 - Sepsis, unspecified organism SNOMED: 98180283, 13173928 Qualifiers: Qualified Codes: A41.9 - Sepsis, unspecified organism; R65.20 - Severe sepsis without septic shock; N17.9 - Acute kidney failure, unspecified (8) UTI (urinary tract infection) ICD Codes: N39.0 - Urinary tract infection, site not specified SNOMED: 64965937, 416341492 Qualifiers: Qualified Codes: N30.00 - Acute cystitis without hematuria (9) HCAP (healthcare-associated pneumonia) ICD Codes: J18.9 - Pneumonia, unspecified organism SNOMED: 999994869, 886354551 Epifanio Robin Sep 19, 2019 12:01
--- NOTE | 2019-09-19 12:35 | NUR ---
NURSES NOTE: Notified Dr. Echevarria that pt potassium went from 3.2 yesterday down to 2.9 today. Awaiting orders.
--- NOTE | 2019-09-19 13:13 | NUR ---
NURSE NOTES: Notified Dr. Hamlin regarding the decadron and left a voicemail. Awaiting orders. Addendum: 09/19/19 at 1315 by Idalmis Alfredo RN Wrong Pt.
[2019-09-19 16:00] VITALS: BP 137/62
--- NOTE | 2019-09-19 19:41 | NUR ---
NURSES NOTE Report given to JEFF De Jesus. Pt in stable condition. Endorsed plan of care.
[2019-09-19 20:00] VITALS: BP 122/52
--- NOTE | 2019-09-19 20:15 | NUR ---
NURSE NOTES: Received report from JEFF Raygoza. Patient is awake alert and oriented x 1. With G-tube, on glucerna 1.5 @ 40 cc/hour, flushing of 100 cc every 6 hours. periodontal assistant is in placed, shows sinus rhythm with no chest pain reported. On fall and aspiration precaution, restraints on bilateral wrist. IV site is on right hand G-22, running fluid of D5W @ 75 cc/hour that is patent and intact. Safety measures are in placed, bed in lowest and locked position, side rails up x 2. Will continue plan of care.
[2019-09-19] MEDS: Atorvastatin 20mg tab GT SCH (20:57)
[2019-09-20] VITALS: BP 111/58
[2019-09-20] MEDS ORDERED: Vancomycin 750mg/NS 275ml IVPB SCH ×2
[2019-09-20 04:00] VITALS: BP 121/51
[2019-09-20] MEDS: Zosyn 3.375gm q8h **Extended infusion IVPB SCH ×6 (05:47→21:29)
--- NOTE | 2019-09-20 07:17 | NUR ---
HAND-OFF: Report given to JEFF Raygoza. Patient is on bed, in stable condition, no desaturation noted. Plan of care endorsed.
[2019-09-20 08:00] VITALS: BP 122/50
[2019-09-20] MEDS ORDERED: Tubing IV Secondary IV ONE (08:33)
[2019-09-20 08:44] LABS: BASOPHILS % (AUTO) 0.3 % (0.0-2.0); EOSINOPHILS % (AUTO) 2.4 % (0.0-3.0); HEMATOCRIT 34.4 % (42.0-52.0); HEMOGLOBIN 10.9 G/DL (14.2-18.0); MEAN CORPUSCULAR VOLUME 99 FL (80-99); MONOCYTES % (AUTO) 3.6 % (1.0-10.0); NEUTROPHILS % (AUTO) 83.6 % (45.0-75.0); PLATELET COUNT 175 K/UL (150-450); RED BLOOD COUNT 3.48 M/UL (4.70-6.10); RED CELL DISTRIBUTION WIDTH 14.2 % (11.6-14.8)
[2019-09-20] MEDS: Atenolol 25mg tab GT SCH (08:59)
[2019-09-20 09:18] LABS: ALANINE AMINOTRANSFERASE 90 U/L (12-78); ALBUMIN 1.8 G/DL (3.4-5.0); ALBUMIN/GLOBULIN RATIO 0.4 (1.0-2.7); ALKALINE PHOSPHATASE 71 U/L (46-116); ANION GAP 8 mmol/L (5-15); ASPARTATE AMINO TRANSFERASE 72 U/L (15-37); BILIRUBIN,TOTAL 0.4 MG/DL (0.2-1.0); BLOOD UREA NITROGEN 20 mg/dL (7-18); CALCIUM 8.7 MG/DL (8.5-10.1); CARBON DIOXIDE 29 MMOL/L (21-32); CHLORIDE 106 MMOL/L (98-107); POTASSIUM 3.8 MMOL/L (3.5-5.1); SODIUM 143 MMOL/L (136-145)
[2019-09-20 11:52] VITALS: BP 119/52
--- NOTE | 2019-09-20 11:59 | Surgery Progress Note ---
Surgery Progress Note Subjective Additional Comments ill appearing labs improved exam stable respiratory monitoring Objective Last 24 Hour Vital Signs Date Time Temp Pulse Resp B/P (MAP) Pulse Ox O2 Delivery O2 Flow Rate FiO2 09/20/19 11:52 96.6 65 26 119/52 (74) 97 09/20/19 09:00 Venturi Mask 8.0 09/20/19 08:59 74 122/50 09/20/19 08:00 75 09/20/19 08:00 96.6 74 28 122/50 (74) 97 09/20/19 06:28 96 Venturi Mask 8.0 40 09/20/19 04:00 98.3 75 24 121/51 (74) 94 09/20/19 04:00 73 09/20/19 00:00 98.1 75 24 111/58 (75) 95 09/20/19 00:00 72 09/19/19 21:00 Venturi Mask 8.0 09/19/19 20:00 97.7 74 25 122/52 (75) 95 09/19/19 20:00 71 09/19/19 19:31 98 Venturi Mask 8.0 40 09/19/19 16:00 76 09/19/19 16:00 97.5 67 21 137/62 (87) 98 09/19/19 12:00 64 09/19/19 12:00 96.6 67 123/65 (84) I&O Intake and Output 09/19/19 09/20/19 19:00 07:00 Intake Total 110 ml 1285 ml Output Total 1350 ml 2000 ml Balance -1240 ml -715 ml Free Water 200 ml IV Total 75 ml 600 ml Tube Feeding 35 ml 485 ml Output Urine Total 1350 ml 2000 ml Dressing: saturated Cardiovascular: RSR Respiratory: decreased breath sounds Abdomen: soft, non-tender, present bowel sounds Extremities: no edema, no tenderness, no cyanosis Laboratory Tests Test 09/20/19 07:15 White Blood Count 8.0 K/UL (4.8-10.8) Red Blood Count 3.48 M/UL (4.70-6.10) L Hemoglobin 10.9 G/DL (14.2-18.0) L Hematocrit 34.4 % (42.0-52.0) L Mean Corpuscular Volume 99 FL (80-99) Mean Corpuscular Hemoglobin 31.4 PG (27.0-31.0) H Mean Corpuscular Hemoglobin Concent 31.8 G/DL (32.0-36.0) L Red Cell Distribution Width 14.2 % (11.6-14.8) Platelet Count 175 K/UL (150-450) Mean Platelet Volume 7.7 FL (6.5-10.1) Neutrophils (%) (Auto) 83.6 % (45.0-75.0) H Lymphocytes (%) (Auto) 10.0 % (20.0-45.0) L Monocytes (%) (Auto) 3.6 % (1.0-10.0) Eosinophils (%) (Auto) 2.4 % (0.0-3.0) Basophils (%) (Auto) 0.3 % (0.0-2.0) Sodium Level 143 MMOL/L (136-145) Potassium Level 3.8 MMOL/L (3.5-5.1) Chloride Level 106 MMOL/L (98-107) Carbon Dioxide Level 29 MMOL/L (21-32) Anion Gap 8 mmol/L (5-15) Blood Urea Nitrogen 20 mg/dL (7-18) H Creatinine 1.0 MG/DL (0.55-1.30) Estimat Glomerular Filtration Rate > 60 mL/min (>60) Glucose Level 106 MG/DL (74-106) Calcium Level 8.7 MG/DL (8.5-10.1) Total Bilirubin 0.4 MG/DL (0.2-1.0) Aspartate Amino Transf (AST/SGOT) 72 U/L (15-37) H Alanine Aminotransferase (ALT/SGPT) 90 U/L (12-78) H Alkaline Phosphatase 71 U/L (46-116) Total Protein 6.4 G/DL (6.4-8.2) Albumin 1.8 G/DL (3.4-5.0) L Globulin 4.6 g/dL Albumin/Globulin Ratio 0.4 (1.0-2.7) L Plan Problems: (1) ARF (acute renal failure) (2) CVA (cerebral vascular accident) (3) Dehydration (4) Anemia (5) Metastatic lung cancer (metastasis from lung to other site) (6) Encephalopathy due to infection (7) Sepsis Assessment & Plan: 84-year-old male presented with leukocytosis, hypokalemia, abnormal labs, malnutrition, hypoalbuminemia. Hypokalemia. Pt presented on admission with multiple Pressure injuries. Partial thickness Pressure Injury R Scapula(L)1.5cm x (W)2.5cm. [place] epithelial at base of wound. Edges adherent to base of wound. No erythema or evidence of skin breakdown periwound. DTPI Sacrococcygeal area(L)1.5cm x (W)3.1cm. Base of pressure injury is purpuric ,indurated with surrounding maroon borders. Incontinence Associated Dermatitis periwound Perianally, R and L Gluteus including both ischium and scrotum. Skin is erythematous with scattered areas of maceration. DTPI medial R Heel(L)4.7cmx (W)5.2cm..Intact blood filled blister noted . Marginal erythema along borders . Periwound, R Heel is boggy but blanchable. L Heel is boggy with non-blanchable erythema. Tx.Plan: Cover wound R Scapula with Optifoam drsg. Change every 7 days and prn. Apply Moisture Barrier Paste to Sacrococcygeal wound. Cover with Optifoam drsg. Change every 3 days and prn. Apply Moisture Barrier Paste to Groin,Scrotum , Buttocks with each incontinence care. Apply Betadine to R Heel. Cover with Optifoam drsg. Changee very 3 days and prn. Apply Cavilon Skin Barrier to L Heel. Cover with Optifoam drsg. Change every 7 days and prn. Reposition at least every 2hours or as tolerated. Off-load heels with Pillow. APM/CRUZITO Mattress overlay. Nutritional optimization Trend labs, Abx as per ID will follow with recs thank you DAILY ESTIMATED NEEDS: Needs based on Wound, cardiac 68.6 25-35 kcals/kg 2405-1370 total kcals 1.25-2 g protein/kg 86-137 g total protein 25-30 mL/kg 6386-1653 total fluid mLs NUTRITION DIAGNOSIS: Swallowing difficulty r/t dysphagia as evidenced by pt is PEG dep. CURRENT TF: Glucerna 1.5 @20 ENTERAL NUTRITION RECOMMENDATIONS: Increase current TF of Glucerna 1.5 to goal of 50ml/hr x24 hrs to provide 1200ml, 1800 kcal, 99g pro, 911ml free H2O - rec to increase as able 10ml q4-6 hrs to goal of 50ml/hr for 24 hrs to meet 100% est kcal and pro needs. - Flush per MD. HOB over 30 degrees ADDITIONAL RECOMMENDATIONS: 1) Maintain calibrated bedscale wts 2) Replete lytes as needed (K low 3.2) 3) Wound care: NARCISO in 4oz water BID. F/up w/ WC eval (8) UTI (urinary tract infection) (9) HCAP (healthcare-associated pneumonia) Epifanio Robin Sep 20, 2019 11:59
--- NOTE | 2019-09-20 12:19 | General Progress Note ---
Assessment/Plan Problem List: (1) HCAP (healthcare-associated pneumonia) ICD Codes: J18.9 - Pneumonia, unspecified organism SNOMED: 508927346, 956831241 (2) UTI (urinary tract infection) ICD Codes: N39.0 - Urinary tract infection, site not specified SNOMED: 58148941, 921440804 Qualifiers: Qualified Codes: N30.00 - Acute cystitis without hematuria (3) Sepsis ICD Codes: A41.9 - Sepsis, unspecified organism SNOMED: 35296327, 80242628 Qualifiers: Qualified Codes: A41.9 - Sepsis, unspecified organism; R65.20 - Severe sepsis without septic shock; N17.9 - Acute kidney failure, unspecified (4) Encephalopathy due to infection ICD Codes: G93.49 - Other encephalopathy; B99.9 - Unspecified infectious disease SNOMED: 75654749, 18341226 (5) Metastatic lung cancer (metastasis from lung to other site) ICD Codes: C34.90 - Malignant neoplasm of unspecified part of unspecified bronchus or lung SNOMED: 97610228, 587638049 Qualifiers: Qualified Codes: C34.90 - Malignant neoplasm of unspecified part of unspecified bronchus or lung (6) CVA (cerebral vascular accident) ICD Codes: I63.9 - Cerebral infarction, unspecified SNOMED: 286891106, 627794411 Qualifiers: Qualified Codes: I63.9 - Cerebral infarction, unspecified (7) ARF (acute renal failure) ICD Codes: N17.9 - Acute kidney failure, unspecified SNOMED: 55159382, 822342442 Qualifiers: Qualified Codes: N17.9 - Acute kidney failure, unspecified (8) Dehydration ICD Codes: E86.0 - Dehydration SNOMED: 44392834, 357895767 (9) Anemia ICD Codes: D64.9 - Anemia, unspecified SNOMED: 420183613, 876139436 Qualifiers: Qualified Codes: D64.9 - Anemia, unspecified Status: stable, not improved, unchanged Assessment/Plan: dc ivf monitor lytes/labs increase water flushes tube feeds monitor residuals resp rx titrate o2- wean as able monitor abg monitor cxr iv abx follow up cultures venous duplex legs d/w dtr- pt is full code with aggressive care. she is aware prognosis is poor Subjective ROS Limited/Unobtainable: Yes Constitutional: Reports: malaise, weakness HEENT: Reports: no symptoms Cardiovascular: Reports: no symptoms Respiratory: Reports: cough, shortness of breath Gastrointestinal/Abdominal: Reports: difficulty swallowing Genitourinary: Reports: no symptoms Neurologic/Psychiatric: Reports: pre-existing deficit Endocrine: Reports: no symptoms Hematologic/Lymphatic: Reports: anemia Allergies: Coded Allergies: No Known Allergies (Unverified , 09/17/19) All Systems: reviewed and negative except above Subjective No significant changes overnight. Remains withdrawn somnolent and lethargic. On Ventimask. unable to wean fio2. Mild congestion noted. Labs reviewed. Tolerating feeds. Sodium improved on hypotonic fluids. Objective Last 24 Hour Vital Signs Date Time Temp Pulse Resp B/P (MAP) Pulse Ox O2 Delivery O2 Flow Rate FiO2 09/20/19 11:52 96.6 65 26 119/52 (74) 97 09/20/19 09:00 Venturi Mask 8.0 09/20/19 08:59 74 122/50 09/20/19 08:00 75 09/20/19 08:00 96.6 74 28 122/50 (74) 97 09/20/19 06:28 96 Venturi Mask 8.0 40 09/20/19 04:00 98.3 75 24 121/51 (74) 94 09/20/19 04:00 73 09/20/19 00:00 98.1 75 24 111/58 (75) 95 09/20/19 00:00 72 09/19/19 21:00 Venturi Mask 8.0 09/19/19 20:00 97.7 74 25 122/52 (75) 95 09/19/19 20:00 71 09/19/19 19:31 98 Venturi Mask 8.0 40 09/19/19 16:00 76 09/19/19 16:00 97.5 67 21 137/62 (87) 98 Intake and Output 09/19/19 09/20/19 19:00 07:00 Intake Total 110 ml 1285 ml Output Total 1350 ml 2000 ml Balance -1240 ml -715 ml Free Water 200 ml IV Total 75 ml 600 ml Tube Feeding 35 ml 485 ml Output Urine Total 1350 ml 2000 ml Laboratory Tests 09/20/19 07:15: White Blood Count 8.0, Red Blood Count 3.48L, Hemoglobin 10.9L, Hematocrit 34.4L , Mean Corpuscular Volume 99, Mean Corpuscular Hemoglobin 31.4H, Mean Corpuscular Hemoglobin Concent 31.8L, Red Cell Distribution Width 14.2, Platelet Count 175, Mean Platelet Volume 7.7, Neutrophils (%) (Auto) 83.6H, Lymphocytes (%) (Auto) 10.0L, Monocytes (%) (Auto) 3.6, Eosinophils (%) (Auto) 2.4, Basophils (%) (Auto) 0.3, Sodium Level 143, Potassium Level 3.8, Chloride Level 106, Carbon Dioxide Level 29, Anion Gap 8, Blood Urea Nitrogen 20H, Creatinine 1.0, Estimat Glomerular Filtration Rate > 60, Glucose Level 106, Calcium Level 8.7, Total Bilirubin 0.4, Aspartate Amino Transf (AST/SGOT) 72H, Alanine Aminotransferase (ALT/SGPT) 90H, Alkaline Phosphatase 71, Total Protein 6.4, Albumin 1.8L, Globulin 4.6, Albumin/Globulin Ratio 0.4L Height (Feet): 5 Height (Inches): 10.00 Weight (Pounds): 155 Objective General Appearance: WD/WN, mild distress, cachetic, thin EENT: normal ENT inspection Neck: non-tender, normal alignment, supple Cardiovascular: normal peripheral pulses, normal rate, regular rhythm Respiratory/Chest: rhonchi - bilaterally Abdomen: normal bowel sounds, non tender, soft, no organomegaly Extremities: normal range of motion, non-tender Edema: no edema noted Arm (L), no edema noted Arm (R) Sherif Echevarria MD Sep 20, 2019 12:19
--- NOTE | 2019-09-20 12:40 | Infectious Diseases Prog Note ---
Assessment/Plan Assessment/Plan A; 1. Likely postobstructive pneumonia. 2. COVID-19 rapid test is negative. 3. Atrial fibrillation. 4. CVA. 5. Lung cancer. 6. Hypernatremia 7. Acute renal failure PLAN: 1. Continue Zosyn 2. Poor prognosis Subjective ROS Limited/Unobtainable: Yes Neurologic: Reports: other - on restraint Allergies: Coded Allergies: No Known Allergies (Unverified , 09/17/19) Objective Last 24 Hour Vital Signs Date Time Temp Pulse Resp B/P (MAP) Pulse Ox O2 Delivery O2 Flow Rate FiO2 09/20/19 11:52 96.6 65 26 119/52 (74) 97 09/20/19 09:00 Venturi Mask 8.0 09/20/19 08:59 74 122/50 09/20/19 08:00 75 09/20/19 08:00 96.6 74 28 122/50 (74) 97 09/20/19 06:28 96 Venturi Mask 8.0 40 09/20/19 04:00 98.3 75 24 121/51 (74) 94 09/20/19 04:00 73 09/20/19 00:00 98.1 75 24 111/58 (75) 95 09/20/19 00:00 72 09/19/19 21:00 Venturi Mask 8.0 09/19/19 20:00 97.7 74 25 122/52 (75) 95 09/19/19 20:00 71 09/19/19 19:31 98 Venturi Mask 8.0 40 09/19/19 16:00 76 09/19/19 16:00 97.5 67 21 137/62 (87) 98 Height (Feet): 5 Height (Inches): 10.00 Weight (Pounds): 155 HEENT: mucous membranes moist Respiratory/Chest: crackles/rales, other - Oxygen by mask Cardiovascular: normal rate Abdomen: soft, non tender Extremities: no edema Neurologic/Psychiatric: unresponsiveness Microbiology Date/Time Source Procedure Growth Status 09/17/19 17:50 Sputum Gram Stain - Final Complete 09/17/19 17:50 Sputum Culture - Final Heidy Albicans Usual Respiratory Rachna Complete 09/19/19 06:30 Stool Clostridium difficile Toxin Assay - Final Complete Laboratory Tests Test 09/20/19 07:15 White Blood Count 8.0 K/UL (4.8-10.8) Red Blood Count 3.48 M/UL (4.70-6.10) L Hemoglobin 10.9 G/DL (14.2-18.0) L Hematocrit 34.4 % (42.0-52.0) L Mean Corpuscular Volume 99 FL (80-99) Mean Corpuscular Hemoglobin 31.4 PG (27.0-31.0) H Mean Corpuscular Hemoglobin Concent 31.8 G/DL (32.0-36.0) L Red Cell Distribution Width 14.2 % (11.6-14.8) Platelet Count 175 K/UL (150-450) Mean Platelet Volume 7.7 FL (6.5-10.1) Neutrophils (%) (Auto) 83.6 % (45.0-75.0) H Lymphocytes (%) (Auto) 10.0 % (20.0-45.0) L Monocytes (%) (Auto) 3.6 % (1.0-10.0) Eosinophils (%) (Auto) 2.4 % (0.0-3.0) Basophils (%) (Auto) 0.3 % (0.0-2.0) Sodium Level 143 MMOL/L (136-145) Potassium Level 3.8 MMOL/L (3.5-5.1) Chloride Level 106 MMOL/L (98-107) Carbon Dioxide Level 29 MMOL/L (21-32) Anion Gap 8 mmol/L (5-15) Blood Urea Nitrogen 20 mg/dL (7-18) H Creatinine 1.0 MG/DL (0.55-1.30) Estimat Glomerular Filtration Rate > 60 mL/min (>60) Glucose Level 106 MG/DL (74-106) Calcium Level 8.7 MG/DL (8.5-10.1) Total Bilirubin 0.4 MG/DL (0.2-1.0) Aspartate Amino Transf (AST/SGOT) 72 U/L (15-37) H Alanine Aminotransferase (ALT/SGPT) 90 U/L (12-78) H Alkaline Phosphatase 71 U/L (46-116) Total Protein 6.4 G/DL (6.4-8.2) Albumin 1.8 G/DL (3.4-5.0) L Globulin 4.6 g/dL Albumin/Globulin Ratio 0.4 (1.0-2.7) L Current Medications Medications (Trade) Dose Ordered Sig/Sharda Route PRN Reason Start Time Stop Time Status Last Admin Dose Admin Acetaminophen (Tylenol) 325 mg Q6H PRN GT Mild Pain (Pain Scale 1-3) 09/17/19 08:15 10/17/19 08:14 Albuterol/ Ipratropium (Albuterol/ Ipratropium) 3 ml Q4H PRN HHN Shortness of Breath 09/17/19 08:15 09/22/19 08:14 Atenolol (Tenormin) 25 mg DAILY GT 09/17/19 09:00 10/17/19 08:59 09/20/19 08:59 Atorvastatin Calcium (Lipitor) 20 mg BEDTIME GT 09/17/19 21:00 12/16/19 20:59 09/19/19 20:57 Chlorhexidine Gluconate (Deborah-Hex 2%) 1 applic DAILY@2000 TOPIC 09/20/19 20:00 12/19/19 19:59 Dextrose 1,000 ml @ 75 mls/hr [id number] IV 09/19/19 11:45 10/19/19 11:44 09/20/19 00:57 Flecainide Acetate (Tambocor) 50 mg BID GT 09/17/19 09:00 12/16/19 08:59 09/20/19 08:58 Lansoprazole (Prevacid) 30 mg DAILY GT 09/17/19 09:00 10/17/19 08:59 09/20/19 08:58 Piperacillin Sod/ Tazobactam Sod 3.375 gm/Sodium Chloride 110 ml @ 27.5 mls/hr EVERY 8 HOURS IVPB 09/17/19 06:00 09/22/19 05:59 09/20/19 05:47 Nick Hector MD Sep 20, 2019 12:40
--- NOTE | 2019-09-20 15:07 | Pulmonology Progress Note ---
Subjective ROS Limited/Unobtainable: Yes Constitutional: Denies: fever Allergies: Coded Allergies: No Known Allergies (Unverified , 09/17/19) All Systems: reviewed and negative except above Subjective care noted on oxygen no distress Objective Last 24 Hour Vital Signs Date Time Temp Pulse Resp B/P (MAP) Pulse Ox O2 Delivery O2 Flow Rate FiO2 09/20/19 12:00 63 09/20/19 11:52 96.6 65 26 119/52 (74) 97 09/20/19 09:00 Venturi Mask 8.0 09/20/19 08:59 74 122/50 09/20/19 08:00 75 09/20/19 08:00 96.6 74 28 122/50 (74) 97 09/20/19 06:28 96 Venturi Mask 8.0 40 09/20/19 04:00 98.3 75 24 121/51 (74) 94 09/20/19 04:00 73 09/20/19 00:00 98.1 75 24 111/58 (75) 95 09/20/19 00:00 72 09/19/19 21:00 Venturi Mask 8.0 09/19/19 20:00 97.7 74 25 122/52 (75) 95 09/19/19 20:00 71 09/19/19 19:31 98 Venturi Mask 8.0 40 09/19/19 16:00 76 09/19/19 16:00 97.5 67 21 137/62 (87) 98 Intake and Output 09/19/19 09/20/19 19:00 07:00 Intake Total 110 ml 1285 ml Output Total 1350 ml 2000 ml Balance -1240 ml -715 ml Free Water 200 ml IV Total 75 ml 600 ml Tube Feeding 35 ml 485 ml Output Urine Total 1350 ml 2000 ml Objective GENERAL: Patient is an ill-appearing male. NECK: Supple. LUNGS: With coarse breath sounds, moderate air entry. CARDIAC: Regular rate and rhythm with soft systolic murmur. ABDOMEN: Soft, nontender. No distention. EXTREMITIES: No cyanosis or clubbing. No edema. NEUROLOGIC: Weak, confused overall. reviewed and edited Microbiology Date/Time Source Procedure Growth Status 09/17/19 17:50 Sputum Gram Stain - Final Complete 09/17/19 17:50 Sputum Culture - Final Heidy Albicans Usual Respiratory Rachna Complete 09/19/19 06:30 Stool Clostridium difficile Toxin Assay - Final Complete Laboratory Tests 09/20/19 07:15: White Blood Count 8.0, Red Blood Count 3.48L, Hemoglobin 10.9L, Hematocrit 34.4L , Mean Corpuscular Volume 99, Mean Corpuscular Hemoglobin 31.4H, Mean Corpuscular Hemoglobin Concent 31.8L, Red Cell Distribution Width 14.2, Platelet Count 175, Mean Platelet Volume 7.7, Neutrophils (%) (Auto) 83.6H, Lymphocytes (%) (Auto) 10.0L, Monocytes (%) (Auto) 3.6, Eosinophils (%) (Auto) 2.4, Basophils (%) (Auto) 0.3, Sodium Level 143, Potassium Level 3.8, Chloride Level 106, Carbon Dioxide Level 29, Anion Gap 8, Blood Urea Nitrogen 20H, Creatinine 1.0, Estimat Glomerular Filtration Rate > 60, Glucose Level 106, Calcium Level 8.7, Total Bilirubin 0.4, Aspartate Amino Transf (AST/SGOT) 72H, Alanine Aminotransferase (ALT/SGPT) 90H, Alkaline Phosphatase 71, Total Protein 6.4, Albumin 1.8L, Globulin 4.6, Albumin/Globulin Ratio 0.4L Current Medications Medications (Trade) Dose Ordered Sig/Sharda Route PRN Reason Start Time Stop Time Status Last Admin Dose Admin Acetaminophen (Tylenol) 325 mg Q6H PRN GT Mild Pain (Pain Scale 1-3) 09/17/19 08:15 10/17/19 08:14 Albuterol/ Ipratropium (Albuterol/ Ipratropium) 3 ml Q4H PRN HHN Shortness of Breath 09/17/19 08:15 09/22/19 08:14 Atenolol (Tenormin) 25 mg DAILY GT 09/17/19 09:00 10/17/19 08:59 09/20/19 08:59 Atorvastatin Calcium (Lipitor) 20 mg BEDTIME GT 09/17/19 21:00 12/16/19 20:59 09/19/19 20:57 Chlorhexidine Gluconate (Deborah-Hex 2%) 1 applic DAILY@2000 TOPIC 09/20/19 20:00 12/19/19 19:59 Dextrose 1,000 ml @ 75 mls/hr [id number] IV 09/19/19 11:45 10/19/19 11:44 09/20/19 14:16 Flecainide Acetate (Tambocor) 50 mg BID GT 09/17/19 09:00 12/16/19 08:59 09/20/19 08:58 Lansoprazole (Prevacid) 30 mg DAILY GT 09/17/19 09:00 10/17/19 08:59 09/20/19 08:58 Piperacillin Sod/ Tazobactam Sod 3.375 gm/Sodium Chloride 110 ml @ 27.5 mls/hr EVERY 8 HOURS IVPB 09/17/19 06:00 09/22/19 05:59 09/20/19 13:07 Assessment/Plan Assessment/Plan IMPRESSION: Possible pneumonia, lung mass, history of cancer, history of smoking, history of CVA, history of aspiration, hypernatremia, acute renal failure, leukocytosis, possible sepsis. PLAN care noted monitor changes defer biopsy or work up for now obtain records if able to discuss further monitor imaging care reviewed and discussed impression, plan, and exam edited and reviewed in detail care discussed with Real Roberson MD Sep 20, 2019 15:07
--- NOTE | 2019-09-20 15:37 | Cardiology Progress Note ---
Subjective DATE OF SERVICE: Sep 20, 2019 Still is very congested on high flow O2 by Ventimask. IVF discontinued today; lytes including sodium improved. Monitor: Sinus and sinus tachycardia; occ PAC's. Review of Systems: no change from my evaluation on 09/19/2019, other than noted above. Objective Last 24 Hour Vital Signs Date Time Temp Pulse Resp B/P (MAP) Pulse Ox O2 Delivery O2 Flow Rate FiO2 09/20/19 12:00 63 09/20/19 11:52 96.6 65 26 119/52 (74) 97 09/20/19 09:00 Venturi Mask 8.0 09/20/19 08:59 74 122/50 09/20/19 08:00 75 09/20/19 08:00 96.6 74 28 122/50 (74) 97 09/20/19 06:28 96 Venturi Mask 8.0 40 09/20/19 04:00 98.3 75 24 121/51 (74) 94 09/20/19 04:00 73 09/20/19 00:00 98.1 75 24 111/58 (75) 95 09/20/19 00:00 72 09/19/19 21:00 Venturi Mask 8.0 09/19/19 20:00 97.7 74 25 122/52 (75) 95 09/19/19 20:00 71 09/19/19 19:31 98 Venturi Mask 8.0 40 09/19/19 16:00 76 09/19/19 16:00 97.5 67 21 137/62 (87) 98 HEENT: normal ENT inspection RHYTHM: NSR, PACs LUNGS: accessory muscle use, bilateral rhonchi, other - High flow oxygen by VM CARDIAC: regular rhythm, normal S1 and S2, arrhythmia ABDOMEN: normal bowel sounds, non tender, soft, G-Tube intact EXTREMITIES: trace edema Laboratory Tests Test 09/20/19 07:15 White Blood Count 8.0 K/UL (4.8-10.8) Red Blood Count 3.48 M/UL (4.70-6.10) L Hemoglobin 10.9 G/DL (14.2-18.0) L Hematocrit 34.4 % (42.0-52.0) L Mean Corpuscular Volume 99 FL (80-99) Mean Corpuscular Hemoglobin 31.4 PG (27.0-31.0) H Mean Corpuscular Hemoglobin Concent 31.8 G/DL (32.0-36.0) L Red Cell Distribution Width 14.2 % (11.6-14.8) Platelet Count 175 K/UL (150-450) Mean Platelet Volume 7.7 FL (6.5-10.1) Neutrophils (%) (Auto) 83.6 % (45.0-75.0) H Lymphocytes (%) (Auto) 10.0 % (20.0-45.0) L Monocytes (%) (Auto) 3.6 % (1.0-10.0) Eosinophils (%) (Auto) 2.4 % (0.0-3.0) Basophils (%) (Auto) 0.3 % (0.0-2.0) Sodium Level 143 MMOL/L (136-145) Potassium Level 3.8 MMOL/L (3.5-5.1) Chloride Level 106 MMOL/L (98-107) Carbon Dioxide Level 29 MMOL/L (21-32) Anion Gap 8 mmol/L (5-15) Blood Urea Nitrogen 20 mg/dL (7-18) H Creatinine 1.0 MG/DL (0.55-1.30) Estimat Glomerular Filtration Rate > 60 mL/min (>60) Glucose Level 106 MG/DL (74-106) Calcium Level 8.7 MG/DL (8.5-10.1) Total Bilirubin 0.4 MG/DL (0.2-1.0) Aspartate Amino Transf (AST/SGOT) 72 U/L (15-37) H Alanine Aminotransferase (ALT/SGPT) 90 U/L (12-78) H Alkaline Phosphatase 71 U/L (46-116) Total Protein 6.4 G/DL (6.4-8.2) Albumin 1.8 G/DL (3.4-5.0) L Globulin 4.6 g/dL Albumin/Globulin Ratio 0.4 (1.0-2.7) L Microbiology Date/Time Source Procedure Growth Status 09/17/19 17:50 Sputum Gram Stain - Final Complete 09/17/19 17:50 Sputum Culture - Final Heidy Albicans Usual Respiratory Rachna Complete 09/19/19 06:30 Stool Clostridium difficile Toxin Assay - Final Complete Assessment/Plan Assessment/Plan Respiratory Failure COPD Hypoxia Lung Cancer Dehydration Hypernatremia corrected Hypokalemia corrected Acute myocardial ischemia Chronic diastolic CHF Atrial ectopy Chronic RBBB Severe protein/calorie malnutrition Dysphagia with GTube PLAN: Off IVF O2 Abx Resp hygiene DVT prophyl Nutritional support Continue beta maksim Samm Mariscal MD Sep 20, 2019 15:37
[2019-09-20 16:00] VITALS: BP 115/41
--- NOTE | 2019-09-20 19:21 | NUR ---
NURSES NOTE: Report given to JEFF Carter. Pt is stable, Plan of care was endorsed.
--- NOTE | 2019-09-20 19:25 | NUR ---
NURSE NOTES: Received report from JEFF Raygoza. Patient is awake, alert and oriented x 1. With G-tube on left upper quadrant of abdomen, running feeding of Glucerna 1.5 @ 50 cc/hour, flushing of 100 cc every 6 hours. 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 With oxygen via venturi mask @ 8Lpm with no desaturation reported. On fall and aspiration precaution. With soft wrist restraints on left wrist. With midline in right upper arm, running fluid of D5W @ 75cc/hour. Safety measures are in placed, bed in lowest and locked position. Side rails up x 2, will continue plan of care.
[2019-09-20 20:00] VITALS: BP 115/55
[2019-09-20] MEDS: Atorvastatin 20mg tab GT SCH (20:48)
[2019-09-20] MEDS: Dyna-Hex 2% Top Sol 2oz TOPIC SCH (20:48)
[2019-09-21] VITALS: BP 114/53
--- NOTE | 2019-09-21 02:45 | Consultation ---
DATE OF CONSULTATION: CARDIOLOGY CONSULT CONSULTING PHYSICIAN: Samm Mariscal M.D. REFERRING PHYSICIAN: Sherif Echevarria M.D. REASON FOR CONSULTATION: Atrial fibrillation. HISTORY OF PRESENT ILLNESS: This is an 84-year-old male with metastatic lung cancer presented to the emergency room with shortness of breath and atrial fibrillation. He was hospitalized here recently and transferred to a senior living facility for terminal care. He is a bit congested, hypoxic and tachycardic, according to EMS report. He has had prior COVID-19 testing that was negative several days ago. PAST MEDICAL HISTORY: Lung cancer, pneumonia, atrial fibrillation, hypertensive heart disease, cerebrovascular disease with a history of CVA, congestive heart failure, and hypertension. ALLERGIES: None. MEDICATIONS: Reviewed and reconciled. FAMILY HISTORY: Not known. SOCIAL HISTORY: No record regarding prior smoking history, alcohol use, or substance abuse. Full code based on discussions with family members in the past. REVIEW OF SYSTEMS: No fevers or chills. He has had cough. No complaints of chest pain. He does have atrial fibrillation. Recent echocardiogram revealed normal ejection fraction. No noted melena or bright red blood per rectum. No history of seizures. No history of diabetes mellitus. No known history of thyroid impairment. PHYSICAL EXAMINATION: VITAL SIGNS: Blood pressure 122/52, heart rate 74, respirations 25, afebrile. Oxygen saturation on a Venturi mask is 95%, withdrawn, minimally verbal. LUNGS: Accessory muscle use. Bilateral rhonchi. Rales at the right. CARDIAC: Irregularly irregular rhythm. Normal S1, S2. ABDOMEN: Soft. EXTREMITIES: Trace edema. LABORATORY AND DIAGNOSTIC DATA: From yesterday, white count 10 and hemoglobin 10.3. Today, sodium 150, potassium 2.9, chloride 111, bicarb 32, BUN 23, and creatinine 1. IMPRESSION: 1. Dehydration. 2. Hyponatremia. 3. Hypovolemia. 4. Hyperchloremia. 5. Hypokalemia. 6. Acute respiratory insufficiency. 7. Healthcare-associated pneumonia. 8. Lung cancer. 9. Chronic diastolic congestive heart failure. 10. Paroxysmal atrial fibrillation. 11. Severe protein-calorie malnutrition. PLAN: 1. Replace potassium. 2. Check magnesium. 3. IV fluid hydration with hypotonic mixture. 4. Antimicrobials. 5. Respiratory hygiene. 6. DVT prophylaxis. 7. Monitor volume status. 8. Trend natriuretic peptide assay. 9. Nutritional support including protein supplement. 10. Full code based on discussions with family members. Samm Mariscal M.D. DR: ANAY JOB#: [id number] CC:
[2019-09-21 04:00] VITALS: BP 117/51
[2019-09-21] MEDS: Zosyn 3.375gm q8h **Extended infusion IVPB SCH ×6 (05:52→21:19)
--- NOTE | 2019-09-21 07:25 | NUR ---
NURSE NOTES: Spoke to Dr. Echevarria and informed him that patient's daughter wants to speak with him regarding patient's present condition and latest laboratory/x-ray results. Gave to Dr. Echevarria the patient's daughter (Bonilla) number.
--- NOTE | 2019-09-21 07:26 | NUR ---
HAND-OFF: Report given to Bonilla/Annabella RN. Patient is asleep, saturating 93% on venturi mask @ 8Lpm. RN made aware that patient's daughter (Bonilla) wants an update from the doctor for the laboratory and xray results that was done this morning. Plan of care endorsed.
--- NOTE | 2019-09-21 07:30 | NUR ---
NURSE NOTES: Received patient in bed. Awake, alert x1. On venturi mask. GT patnet and running feeding as ordered. F/c in place draining yellow urine. Righ upper arm midline, site intact infusing IVF as ordered. Left wrist restraint in place, hands are warm and normal color for ethnicity. Bed low and locked, side rails up x2.
[2019-09-21 07:38] LABS: HEMOGLOBIN 11.5 G/DL (14.2-18.0); MEAN CORPUSCULAR VOLUME 98 FL (80-99); PLATELET COUNT 175 K/UL (150-450); RED BLOOD COUNT 3.67 M/UL (4.70-6.10); RED CELL DISTRIBUTION WIDTH 14.7 % (11.6-14.8)
--- NOTE | 2019-09-21 07:58 | Pulmonology Progress Note ---
Subjective ROS Limited/Unobtainable: Yes Constitutional: Denies: fever Allergies: Coded Allergies: No Known Allergies (Unverified , 09/17/19) All Systems: reviewed and negative except above Subjective care noted on oxygen no distress Objective Last 24 Hour Vital Signs Date Time Temp Pulse Resp B/P (MAP) Pulse Ox O2 Delivery O2 Flow Rate FiO2 09/21/19 04:00 78 09/21/19 04:00 97.9 75 36 117/51 (73) 96 09/21/19 00:00 72 09/21/19 00:00 96.0 68 34 114/53 (73) 93 09/20/19 21:00 Venturi Mask 8.0 09/20/19 20:00 96.0 63 32 115/55 (75) 94 09/20/19 19:48 69 09/20/19 16:00 96.1 30 115/41 (65) 98 09/20/19 16:00 64 09/20/19 12:00 63 09/20/19 11:52 96.6 65 26 119/52 (74) 97 09/20/19 09:00 Venturi Mask 8.0 09/20/19 08:59 74 122/50 09/20/19 08:00 75 09/20/19 08:00 96.6 74 28 122/50 (74) 97 Intake and Output 09/20/19 09/21/19 19:00 07:00 Intake Total 75 ml 450 ml Output Total 2500 ml 1500 ml Balance -2425 ml -1050 ml IV Total 75 ml 450 ml Output Urine Total 2500 ml 1500 ml # Bowel Movements 1 Objective GENERAL: Patient is an ill-appearing male. NECK: Supple. LUNGS: With coarse breath sounds, moderate air entry. CARDIAC: Regular rate and rhythm with soft systolic murmur. ABDOMEN: Soft, nontender. No distention. EXTREMITIES: No cyanosis or clubbing. No edema. NEUROLOGIC: Weak, confused overall. reviewed and edited Microbiology Date/Time Source Procedure Growth Status 09/19/19 06:30 Stool Clostridium difficile Toxin Assay - Final Complete Laboratory Tests 09/21/19 06:46: White Blood Count 7.0, Red Blood Count 3.67L, Hemoglobin 11.5L, Hematocrit 36.0L , Mean Corpuscular Volume 98, Mean Corpuscular Hemoglobin 31.2H, Mean Corpuscular Hemoglobin Concent 31.8L, Red Cell Distribution Width 14.7, Platelet Count 175, Mean Platelet Volume 7.3, Neutrophils (%) (Auto) , Lymphocytes (%) (Auto) , Monocytes (%) (Auto) , Eosinophils (%) (Auto) , Basophils (%) (Auto) , Neutrophils % (Manual) [Pending], Lymphocytes % (Manual) [Pending], Platelet Estimate [Pending], Platelet Morphology [Pending], Sodium Level [Pending], Potassium Level [Pending], Chloride Level [Pending], Carbon Dioxide Level [Pending], Blood Urea Nitrogen [Pending], Creatinine [Pending], Estimat Glomerular Filtration Rate [Pending], Glucose Level [Pending], Calcium Level [Pending], Magnesium Level [Pending], Total Bilirubin [Pending], Aspartate Amino Transf (AST/SGOT) [Pending], Alanine Aminotransferase (ALT/SGPT ) [Pending], Alkaline Phosphatase [Pending], Troponin I [Pending], Total Protein [Pending], Albumin [Pending], Globulin [Pending] Current Medications Medications (Trade) Dose Ordered Sig/Sharda Route PRN Reason Start Time Stop Time Status Last Admin Dose Admin Acetaminophen (Tylenol) 325 mg Q6H PRN GT Mild Pain (Pain Scale 1-3) 09/17/19 08:15 10/17/19 08:14 Albuterol/ Ipratropium (Albuterol/ Ipratropium) 3 ml Q4H PRN HHN Shortness of Breath 09/17/19 08:15 09/22/19 08:14 Atenolol (Tenormin) 25 mg DAILY GT 09/17/19 09:00 10/17/19 08:59 09/20/19 08:59 Atorvastatin Calcium (Lipitor) 20 mg BEDTIME GT 09/17/19 21:00 12/16/19 20:59 09/20/19 20:48 Chlorhexidine Gluconate (Deborah-Hex 2%) 1 applic DAILY@2000 TOPIC 09/20/19 20:00 12/19/19 19:59 09/20/19 20:48 Dextrose 1,000 ml @ 75 mls/hr [id number] IV 09/19/19 11:45 10/19/19 11:44 09/21/19 04:08 Flecainide Acetate (Tambocor) 50 mg BID GT 09/17/19 09:00 12/16/19 08:59 09/20/19 17:30 Lansoprazole (Prevacid) 30 mg DAILY GT 09/17/19 09:00 10/17/19 08:59 09/20/19 08:58 Piperacillin Sod/ Tazobactam Sod 3.375 gm/Sodium Chloride 110 ml @ 27.5 mls/hr EVERY 8 HOURS IVPB 09/17/19 06:00 09/22/19 05:59 09/21/19 05:52 Assessment/Plan Assessment/Plan IMPRESSION: Possible pneumonia, lung mass, history of cancer, history of smoking, history of CVA, history of aspiration, hypernatremia, acute renal failure, leukocytosis, possible sepsis. PLAN care noted monitor changes defer biopsy or work up for now obtain records if able to discuss further monitor imaging- repeat today care reviewed and discussed impression, plan, and exam edited and reviewed in detail care discussed with Real Roberson MD Sep 21, 2019 07:58
[2019-09-21 08:00] VITALS: BP 127/52
[2019-09-21 08:04] LABS: ALANINE AMINOTRANSFERASE 117 U/L (12-78); ALBUMIN/GLOBULIN RATIO 0.5 (1.0-2.7); ALKALINE PHOSPHATASE 77 U/L (46-116); ANION GAP 10 mmol/L (5-15); ASPARTATE AMINO TRANSFERASE 83 U/L (15-37); BILIRUBIN,TOTAL 0.4 MG/DL (0.2-1.0); BLOOD UREA NITROGEN 15 mg/dL (7-18); CALCIUM 8.5 MG/DL (8.5-10.1); CARBON DIOXIDE 28 MMOL/L (21-32); CHLORIDE 104 MMOL/L (98-107); CREATININE 0.8 MG/DL (0.55-1.30); POTASSIUM 3.9 MMOL/L (3.5-5.1); SODIUM 141 MMOL/L (136-145)
[2019-09-21] MEDS: Atenolol 25mg tab GT SCH (08:41)
--- NOTE | 2019-09-21 09:25 | NUR ---
RADIOLOGY DEPT., CHEST X-RAY DONE.-P.DYE
--- NOTE | 2019-09-21 10:40 | Infectious Diseases Prog Note ---
Assessment/Plan Assessment/Plan antibiotics : zosyn A 1. post obstructive pneumonia COVID 19 rapid test negative 2. lung cancer 3. CVA 4. hypertension P 1. continue zosyn 2 more days 2. will follow up cultures Subjective ROS Limited/Unobtainable: Yes Allergies: Coded Allergies: No Known Allergies (Unverified , 09/17/19) Objective Last 24 Hour Vital Signs Date Time Temp Pulse Resp B/P (MAP) Pulse Ox O2 Delivery O2 Flow Rate FiO2 09/21/19 08:41 82 127/52 09/21/19 08:25 Venturi Mask 8.0 09/21/19 08:00 97.5 82 22 127/52 (77) 95 09/21/19 08:00 75 09/21/19 07:30 95 Venturi Mask 8.0 40 09/21/19 04:00 78 09/21/19 04:00 97.9 75 36 117/51 (73) 96 09/21/19 00:00 72 09/21/19 00:00 96.0 68 34 114/53 (73) 93 09/20/19 21:00 Venturi Mask 8.0 09/20/19 20:00 96.0 63 32 115/55 (75) 94 09/20/19 19:48 69 09/20/19 16:00 96.1 30 115/41 (65) 98 09/20/19 16:00 64 09/20/19 12:00 63 09/20/19 11:52 96.6 65 26 119/52 (74) 97 Height (Feet): 5 Height (Inches): 10.00 Weight (Pounds): 155 Respiratory/Chest: lungs clear Cardiovascular: normal rate, regular rhythm, no gallop/murmur Abdomen: soft, non tender, other - GT Extremities: no edema Microbiology Date/Time Source Procedure Growth Status 09/19/19 06:30 Stool Clostridium difficile Toxin Assay - Final Complete Laboratory Tests Test 09/21/19 06:46 White Blood Count 7.0 K/UL (4.8-10.8) Red Blood Count 3.67 M/UL (4.70-6.10) L Hemoglobin 11.5 G/DL (14.2-18.0) L Hematocrit 36.0 % (42.0-52.0) L Mean Corpuscular Volume 98 FL (80-99) Mean Corpuscular Hemoglobin 31.2 PG (27.0-31.0) H Mean Corpuscular Hemoglobin Concent 31.8 G/DL (32.0-36.0) L Red Cell Distribution Width 14.7 % (11.6-14.8) Platelet Count 175 K/UL (150-450) Mean Platelet Volume 7.3 FL (6.5-10.1) Neutrophils (%) (Auto) % (45.0-75.0) Lymphocytes (%) (Auto) % (20.0-45.0) Monocytes (%) (Auto) % (1.0-10.0) Eosinophils (%) (Auto) % (0.0-3.0) Basophils (%) (Auto) % (0.0-2.0) Differential Total Cells Counted 100 Neutrophils % (Manual) 82 % (45-75) H Lymphocytes % (Manual) 12 % (20-45) L Monocytes % (Manual) 4 % (1-10) Eosinophils % (Manual) 2 % (0-3) Basophils % (Manual) 0 % (0-2) Band Neutrophils 0 % (0-8) Platelet Estimate Adequate Platelet Morphology Normal Anisocytosis 1+ Sodium Level 141 MMOL/L (136-145) Potassium Level 3.9 MMOL/L (3.5-5.1) Chloride Level 104 MMOL/L (98-107) Carbon Dioxide Level 28 MMOL/L (21-32) Anion Gap 10 mmol/L (5-15) Blood Urea Nitrogen 15 mg/dL (7-18) Creatinine 0.8 MG/DL (0.55-1.30) Estimat Glomerular Filtration Rate > 60 mL/min (>60) Glucose Level 113 MG/DL (74-106) H Calcium Level 8.5 MG/DL (8.5-10.1) Magnesium Level 1.8 MG/DL (1.8-2.4) Total Bilirubin 0.4 MG/DL (0.2-1.0) Aspartate Amino Transf (AST/SGOT) 83 U/L (15-37) H Alanine Aminotransferase (ALT/SGPT) 117 U/L (12-78) H Alkaline Phosphatase 77 U/L (46-116) Troponin I 0.016 ng/mL (0.000-0.056) Total Protein 6.0 G/DL (6.4-8.2) L Albumin 2.0 G/DL (3.4-5.0) L Globulin 4.0 g/dL Albumin/Globulin Ratio 0.5 (1.0-2.7) L Current Medications Medications (Trade) Dose Ordered Sig/Sharda Route PRN Reason Start Time Stop Time Status Last Admin Dose Admin Acetaminophen (Tylenol) 325 mg Q6H PRN GT Mild Pain (Pain Scale 1-3) 09/17/19 08:15 10/17/19 08:14 Albuterol/ Ipratropium (Albuterol/ Ipratropium) 3 ml Q4H PRN HHN Shortness of Breath 09/17/19 08:15 09/22/19 08:14 Atenolol (Tenormin) 25 mg DAILY GT 09/17/19 09:00 10/17/19 08:59 09/21/19 08:41 Atorvastatin Calcium (Lipitor) 20 mg BEDTIME GT 09/17/19 21:00 12/16/19 20:59 09/20/19 20:48 Chlorhexidine Gluconate (Deborah-Hex 2%) 1 applic DAILY@2000 TOPIC 09/20/19 20:00 12/19/19 19:59 09/20/19 20:48 Dextrose 1,000 ml @ 75 mls/hr [id number] IV 09/19/19 11:45 10/19/19 11:44 09/21/19 04:08 Flecainide Acetate (Tambocor) 50 mg BID GT 09/17/19 09:00 12/16/19 08:59 09/21/19 08:41 Lansoprazole (Prevacid) 30 mg DAILY GT 09/17/19 09:00 10/17/19 08:59 09/21/19 08:41 Piperacillin Sod/ Tazobactam Sod 3.375 gm/Sodium Chloride 110 ml @ 27.5 mls/hr EVERY 8 HOURS IVPB 09/17/19 06:00 09/26/19 05:59 09/21/19 05:52 Jitendra Hubbard MD Sep 21, 2019 10:40
--- NOTE | 2019-09-21 10:44 | General Progress Note ---
Assessment/Plan Problem List: (1) HCAP (healthcare-associated pneumonia) ICD Codes: J18.9 - Pneumonia, unspecified organism SNOMED: 104414949, 913496406 (2) UTI (urinary tract infection) ICD Codes: N39.0 - Urinary tract infection, site not specified SNOMED: 09319273, 972812429 Qualifiers: Qualified Codes: N30.00 - Acute cystitis without hematuria (3) Sepsis ICD Codes: A41.9 - Sepsis, unspecified organism SNOMED: 18327783, 58685098 Qualifiers: Qualified Codes: A41.9 - Sepsis, unspecified organism; R65.20 - Severe sepsis without septic shock; N17.9 - Acute kidney failure, unspecified (4) Encephalopathy due to infection ICD Codes: G93.49 - Other encephalopathy; B99.9 - Unspecified infectious disease SNOMED: 79590510, 11167060 (5) Metastatic lung cancer (metastasis from lung to other site) ICD Codes: C34.90 - Malignant neoplasm of unspecified part of unspecified bronchus or lung SNOMED: 28915390, 107838045 Qualifiers: Qualified Codes: C34.90 - Malignant neoplasm of unspecified part of unspecified bronchus or lung (6) CVA (cerebral vascular accident) ICD Codes: I63.9 - Cerebral infarction, unspecified SNOMED: 163466709, 572222706 Qualifiers: Qualified Codes: I63.9 - Cerebral infarction, unspecified (7) ARF (acute renal failure) ICD Codes: N17.9 - Acute kidney failure, unspecified SNOMED: 66689394, 352802314 Qualifiers: Qualified Codes: N17.9 - Acute kidney failure, unspecified (8) Dehydration ICD Codes: E86.0 - Dehydration SNOMED: 82487069, 559299487 (9) Anemia ICD Codes: D64.9 - Anemia, unspecified SNOMED: 946434962, 388547684 Qualifiers: Qualified Codes: D64.9 - Anemia, unspecified Status: stable, not improved, unchanged Assessment/Plan: dc ivf monitor lytes/labs increase water flushes tube feeds monitor residuals resp rx titrate o2- wean as able monitor abg ct chest iv abx follow up cultures venous duplex legs pt is full code with aggressive care. d.w dtr x 15 mis, aware of poor prognosis. ask family to consider hospice Subjective ROS Limited/Unobtainable: No Constitutional: Reports: malaise, weakness HEENT: Reports: no symptoms Cardiovascular: Reports: no symptoms Respiratory: Reports: cough Gastrointestinal/Abdominal: Reports: difficulty swallowing Genitourinary: Reports: no symptoms Neurologic/Psychiatric: Reports: pre-existing deficit Endocrine: Reports: no symptoms Hematologic/Lymphatic: Reports: anemia Allergies: Coded Allergies: No Known Allergies (Unverified , 09/17/19) All Systems: reviewed and negative except above Subjective stable. remains on venti mask. staff unable to wean pt down. tolerating feeds. labs improving. CT and cxr pending for today Objective Last 24 Hour Vital Signs Date Time Temp Pulse Resp B/P (MAP) Pulse Ox O2 Delivery O2 Flow Rate FiO2 09/21/19 08:41 82 127/52 09/21/19 08:25 Venturi Mask 8.0 09/21/19 08:00 97.5 82 22 127/52 (77) 95 09/21/19 08:00 75 09/21/19 07:30 95 Venturi Mask 8.0 40 09/21/19 04:00 78 09/21/19 04:00 97.9 75 36 117/51 (73) 96 09/21/19 00:00 72 09/21/19 00:00 96.0 68 34 114/53 (73) 93 09/20/19 21:00 Venturi Mask 8.0 09/20/19 20:00 96.0 63 32 115/55 (75) 94 09/20/19 19:48 69 09/20/19 16:00 96.1 30 115/41 (65) 98 09/20/19 16:00 64 09/20/19 12:00 63 09/20/19 11:52 96.6 65 26 119/52 (74) 97 Intake and Output 09/20/19 09/21/19 19:00 07:00 Intake Total 75 ml 450 ml Output Total 2500 ml 1500 ml Balance -2425 ml -1050 ml IV Total 75 ml 450 ml Output Urine Total 2500 ml 1500 ml # Bowel Movements 1 Laboratory Tests 09/21/19 06:46: White Blood Count 7.0, Red Blood Count 3.67L, Hemoglobin 11.5L, Hematocrit 36.0L , Mean Corpuscular Volume 98, Mean Corpuscular Hemoglobin 31.2H, Mean Corpuscular Hemoglobin Concent 31.8L, Red Cell Distribution Width 14.7, Platelet Count 175, Mean Platelet Volume 7.3, Neutrophils (%) (Auto) , Lymphocytes (%) (Auto) , Monocytes (%) (Auto) , Eosinophils (%) (Auto) , Basophils (%) (Auto) , Differential Total Cells Counted 100, Neutrophils % ( Manual) 82H, Lymphocytes % (Manual) 12L, Monocytes % (Manual) 4, Eosinophils % ( Manual) 2, Basophils % (Manual) 0, Band Neutrophils 0, Platelet Estimate Adequate, Platelet Morphology Normal, Anisocytosis 1+, Sodium Level 141, Potassium Level 3.9, Chloride Level 104, Carbon Dioxide Level 28, Anion Gap 10, Blood Urea Nitrogen 15, Creatinine 0.8, Estimat Glomerular Filtration Rate > 60 , Glucose Level 113H, Calcium Level 8.5, Magnesium Level 1.8, Total Bilirubin 0.4, Aspartate Amino Transf (AST/SGOT) 83H, Alanine Aminotransferase (ALT/SGPT) 117H, Alkaline Phosphatase 77, Troponin I 0.016, Total Protein 6.0L, Albumin 2.0L, Globulin 4.0, Albumin/Globulin Ratio 0.5L Height (Feet): 5 Height (Inches): 10.00 Weight (Pounds): 155 Objective General Appearance: WD/WN, mild distress, cachetic, thin EENT: normal ENT inspection Neck: non-tender, normal alignment, supple Cardiovascular: normal peripheral pulses, normal rate, regular rhythm Respiratory/Chest: rhonchi - bilaterally Abdomen: normal bowel sounds, non tender, soft, no organomegaly Extremities: normal range of motion, non-tender Edema: no edema noted Arm (L), no edema noted Arm (R) Sherif Echevarria MD Sep 21, 2019 10:44
--- NOTE | 2019-09-21 11:38 | Surgery Progress Note ---
Surgery Progress Note Subjective Additional Comments ill appearing on face mask eyes open not responsive labs reviewed Objective Last 24 Hour Vital Signs Date Time Temp Pulse Resp B/P (MAP) Pulse Ox O2 Delivery O2 Flow Rate FiO2 09/21/19 08:41 82 127/52 09/21/19 08:25 Venturi Mask 8.0 09/21/19 08:00 97.5 82 22 127/52 (77) 95 09/21/19 08:00 75 09/21/19 07:30 95 Venturi Mask 8.0 40 09/21/19 04:00 78 09/21/19 04:00 97.9 75 36 117/51 (73) 96 09/21/19 00:00 72 09/21/19 00:00 96.0 68 34 114/53 (73) 93 09/20/19 21:00 Venturi Mask 8.0 09/20/19 20:00 96.0 63 32 115/55 (75) 94 09/20/19 19:48 69 09/20/19 16:00 96.1 30 115/41 (65) 98 09/20/19 16:00 64 09/20/19 12:00 63 09/20/19 11:52 96.6 65 26 119/52 (74) 97 I&O Intake and Output 09/20/19 09/21/19 19:00 07:00 Intake Total 75 ml 525 ml Output Total 2500 ml 1500 ml Balance -2425 ml -975 ml IV Total 75 ml 525 ml Output Urine Total 2500 ml 1500 ml # Bowel Movements 1 Dressing: saturated Wound: other Cardiovascular: RSR Respiratory: decreased breath sounds Abdomen: soft, non-tender, present bowel sounds Extremities: no tenderness, no cyanosis Laboratory Tests Test 09/21/19 06:46 White Blood Count 7.0 K/UL (4.8-10.8) Red Blood Count 3.67 M/UL (4.70-6.10) L Hemoglobin 11.5 G/DL (14.2-18.0) L Hematocrit 36.0 % (42.0-52.0) L Mean Corpuscular Volume 98 FL (80-99) Mean Corpuscular Hemoglobin 31.2 PG (27.0-31.0) H Mean Corpuscular Hemoglobin Concent 31.8 G/DL (32.0-36.0) L Red Cell Distribution Width 14.7 % (11.6-14.8) Platelet Count 175 K/UL (150-450) Mean Platelet Volume 7.3 FL (6.5-10.1) Neutrophils (%) (Auto) % (45.0-75.0) Lymphocytes (%) (Auto) % (20.0-45.0) Monocytes (%) (Auto) % (1.0-10.0) Eosinophils (%) (Auto) % (0.0-3.0) Basophils (%) (Auto) % (0.0-2.0) Differential Total Cells Counted 100 Neutrophils % (Manual) 82 % (45-75) H Lymphocytes % (Manual) 12 % (20-45) L Monocytes % (Manual) 4 % (1-10) Eosinophils % (Manual) 2 % (0-3) Basophils % (Manual) 0 % (0-2) Band Neutrophils 0 % (0-8) Platelet Estimate Adequate Platelet Morphology Normal Anisocytosis 1+ Sodium Level 141 MMOL/L (136-145) Potassium Level 3.9 MMOL/L (3.5-5.1) Chloride Level 104 MMOL/L (98-107) Carbon Dioxide Level 28 MMOL/L (21-32) Anion Gap 10 mmol/L (5-15) Blood Urea Nitrogen 15 mg/dL (7-18) Creatinine 0.8 MG/DL (0.55-1.30) Estimat Glomerular Filtration Rate > 60 mL/min (>60) Glucose Level 113 MG/DL (74-106) H Calcium Level 8.5 MG/DL (8.5-10.1) Magnesium Level 1.8 MG/DL (1.8-2.4) Total Bilirubin 0.4 MG/DL (0.2-1.0) Aspartate Amino Transf (AST/SGOT) 83 U/L (15-37) H Alanine Aminotransferase (ALT/SGPT) 117 U/L (12-78) H Alkaline Phosphatase 77 U/L (46-116) Troponin I 0.016 ng/mL (0.000-0.056) Total Protein 6.0 G/DL (6.4-8.2) L Albumin 2.0 G/DL (3.4-5.0) L Globulin 4.0 g/dL Albumin/Globulin Ratio 0.5 (1.0-2.7) L Plan Problems: (1) ARF (acute renal failure) (2) CVA (cerebral vascular accident) (3) Dehydration (4) Anemia (5) Metastatic lung cancer (metastasis from lung to other site) (6) Encephalopathy due to infection (7) Sepsis Assessment & Plan: 84-year-old male presented with leukocytosis, hypokalemia, abnormal labs, malnutrition, hypoalbuminemia. Hypokalemia. Pt presented on admission with multiple Pressure injuries. Partial thickness Pressure Injury R Scapula(L)1.5cm x (W)2.5cm. [place] epithelial at base of wound. Edges adherent to base of wound. No erythema or evidence of skin breakdown periwound. DTPI Sacrococcygeal area(L)1.5cm x (W)3.1cm. Base of pressure injury is purpuric ,indurated with surrounding maroon borders. Incontinence Associated Dermatitis periwound Perianally, R and L Gluteus including both ischium and scrotum. Skin is erythematous with scattered areas of maceration. DTPI medial R Heel(L)4.7cmx (W)5.2cm..Intact blood filled blister noted . Marginal erythema along borders . Periwound, R Heel is boggy but blanchable. L Heel is boggy with non-blanchable erythema. Tx.Plan: Cover wound R Scapula with Optifoam drsg. Change every 7 days and prn. Apply Moisture Barrier Paste to Sacrococcygeal wound. Cover with Optifoam drsg. Change every 3 days and prn. Apply Moisture Barrier Paste to Groin,Scrotum , Buttocks with each incontinence care. Apply Betadine to R Heel. Cover with Optifoam drsg. Changee very 3 days and prn. Apply [place] Skin Barrier to L Heel. Cover with Optifoam drsg. Change every 7 days and prn. Reposition at least every 2hours or as tolerated. Off-load heels with Pillow. APM/CRUZITO Mattress overlay. Nutritional optimization Trend labs, Abx as per ID will follow with recs thank you ill appearing. labs better cont current care plan DAILY ESTIMATED NEEDS: Needs based on Wound, cardiac 68.6 25-35 kcals/kg 6021-5209 total kcals 1.25-2 g protein/kg 86-137 g total protein 25-30 mL/kg 0373-7776 total fluid mLs NUTRITION DIAGNOSIS: Swallowing difficulty r/t dysphagia as evidenced by pt is PEG dep. CURRENT TF: Glucerna 1.5 @20 ENTERAL NUTRITION RECOMMENDATIONS: Increase current TF of Glucerna 1.5 to goal of 50ml/hr x24 hrs to provide 1200ml, 1800 kcal, 99g pro, 911ml free H2O - rec to increase as able 10ml q4-6 hrs to goal of 50ml/hr for 24 hrs to meet 100% est kcal and pro needs. - Flush per MD. HOB over 30 degrees ADDITIONAL RECOMMENDATIONS: 1) Maintain calibrated bedscale wts 2) Replete lytes as needed (K low 3.2) 3) Wound care: NARCISO in 4oz water BID. F/up w/ WC eval (8) UTI (urinary tract infection) (9) HCAP (healthcare-associated pneumonia) Epifanio Robin Sep 21, 2019 11:38
--- NOTE | 2019-09-21 11:48 | Diagnostic Imaging Report ---
EXAM: ULTRASOUND Venous Duplex Scan Colin Leg CLINICAL HISTORY: Leg pain and edema. COMPARISON: None TECHNIQUE: Doppler examination include grayscale images obtained with and without compression, and color and spectral doppler analysis. FINDINGS: Doppler examination shows normal spontaneity, phasicity, compressibility in the bilateral lower extremities. There is no thrombus identified by grayscale. Normal color and spectral flow is identified. There is no evidence of valvular incompetency or insufficiency. IMPRESSION: UNREMARKABLE VENOUS DUPLEX.
[2019-09-21 12:00] VITALS: BP 122/51
--- NOTE | 2019-09-21 12:16 | Diagnostic Imaging Report ---
EXAM: CT CT Chest no Contrast CLINICAL HISTORY: Cough. History of metastatic lung cancer. TECHNIQUE: Axial images obtained through the chest without contrast. All CT scans at this facility are performed using dose modulation techniques as appropriate to a performed exam including the following: automated exposure control with adjustment of the mA and/or kV according to patient size. RADIATION DOSE: CTDIvol: 5.1 mGy DLP: 196.6 mGy-cm Dose information generated by the CT scanner is available in PACS. COMPARISON: Chest x-ray 09/21/2019 FINDINGS: There is a masslike consolidation noted in the left upper lobe with air bronchogram. It extends from the left suprahilar region to the periphery. With the air bronchogram, this is likely an infectious/inflammatory consolidation rather than a distinct mass. There is a lobulated mass identified in the right midlung adjacent to the right heart margin measuring 4.3 x 3.9 cm. An adjacent satellite lesion is identified in the lateral right upper lobe measuring 1.2 cm. There are reticulonodular interstitial densities noted scattered in the mid to lower lung zones bilaterally. Dependent infiltrates also identified in both lung bases. Right upper paratracheal adenopathy noted near the root of the great vessels. Smaller lymph nodes identified at the azygous region and precarinal space. There is no effusion. Limited images through the upper abdomen show a G-tube in place. There is a left adrenal mass measuring 2.7 cm likely metastatic and there are several right renal cysts. IMPRESSION: LOBULATED MASS IN THE RIGHT MIDLUNG ADJACENT TO THE RIGHT HEART MARGIN CONSISTENT PATIENT'S HISTORY OF PRIMARY LUNG CANCER. METASTATIC DISEASE INCLUDING A SATELLITE LESION LATERAL RIGHT UPPER LOBE WELL NUMEROUS RETICULONODULAR DENSITIES IN THE MID TO LOWER LUNG ZONES. MASSLIKE CONSOLIDATION IN THE LEFT UPPER LOBE WITH AIR BRONCHOGRAM, MORE LIKELY INFECTIOUS/INFLAMMATORY. BIBASILAR INFILTRATES ALSO NOTED. LEFT ADRENAL MASS LIKELY METASTASIS. RIGHT RENAL CYSTS. G-TUBE IN PLACE.
--- NOTE | 2019-09-21 12:26 | Diagnostic Imaging Report ---
Procedure: XRAY Chest 1v Reason for study: Shortness of breath. Comparison films: 09/17/2019. FINDINGS: Radiograph is underpenetrated. No significant change bilateral infiltrates and diffuse interstitial prominence given the difference in technique. There is a right midline catheter in place. Cardiac and mediastinal silhouette are within normal limits. CP angles are sharp. The bony thorax appear unremarkable. IMPRESSION: NO SIGNIFICANT CHANGE COMPARED TO PREVIOUS EXAM.
--- NOTE | 2019-09-21 13:11 | NUR ---
CASE MANAGEMENT:REVIEW 09/21/19 SI: PNA. PAFIB. LUNG CA.ACUTE RESP INSUFF 96.9 74 34 122/51 97% ON ON 8L VIA VENTURI MASK H/H-11.5/36.0 GLUCOSE+113 AST/ALT+83/117 TROPONIN(-) IS: IVF@50/HR IV ZOSYN Q8HRS LIPITOR GT QHS ATENOLOL GT QD TAMBOCOR GT BID PREVACID GT QD : TELEMETRY STATUS DCP: FROM [facility] PLAN: CT CHEST
[2019-09-21 16:00] VITALS: BP 127/49
--- NOTE | 2019-09-21 19:07 | NUR ---
HAND-OFF: Report given to Fabiana HARVEY.
--- NOTE | 2019-09-21 19:10 | NUR ---
NURSE NOTES: Received report from Bonilla/Annabella RN. Patient is asleep, alert and oriented x 1. With g-tube, on glucerna 1.5 @ 20 cc/hour, flushing of 100 cc every 6 hours. manager monitoring is in placed, shows sinus rhythm. With oxygen via venturi mask @ 8 With right upper arm midline, running fluid of D5W @ 50 cc/hour. With Delong catheter in place, drained by gravity with yellow/rupa urine output. Safety measures are in placed, bed in lowest and locked position, side rails up x 2. Will continue plan of care.
[2019-09-21] MEDS: Dyna-Hex 2% Top Sol 2oz TOPIC SCH (19:51)
[2019-09-21 20:00] VITALS: BP 117/55
[2019-09-21] MEDS: Atorvastatin 20mg tab GT SCH (20:18)
--- NOTE | 2019-09-21 23:35 | Cardiology Progress Note ---
Subjective DATE OF SERVICE: Sep 21, 2019 Still is very congested on high flow O2 by Ventimask. Unable to taper off oxygen. IVF discontinued yesterday; labs improving. Monitor: Sinus and sinus tachycardia; occ PAC's. Review of Systems: no change from my evaluation on 09/19/2019, other than noted above. Objective Last 24 Hour Vital Signs Date Time Temp Pulse Resp B/P (MAP) Pulse Ox O2 Delivery O2 Flow Rate FiO2 09/21/19 21:00 Venturi Mask 8.0 09/21/19 20:00 97.1 74 26 117/55 (75) 95 09/21/19 20:00 74 09/21/19 16:00 77 09/21/19 16:00 97.9 84 24 127/49 (75) 92 09/21/19 12:00 96.9 74 34 122/51 (74) 97 09/21/19 12:00 71 09/21/19 08:41 82 127/52 09/21/19 08:25 Venturi Mask 8.0 09/21/19 08:00 97.5 82 22 127/52 (77) 95 09/21/19 08:00 75 09/21/19 07:30 95 Venturi Mask 8.0 40 09/21/19 04:00 78 09/21/19 04:00 97.9 75 36 117/51 (73) 96 09/21/19 00:00 72 09/21/19 00:00 96.0 68 34 114/53 (73) 93 HEENT: normal ENT inspection RHYTHM: NSR, PACs LUNGS: accessory muscle use, bilateral rhonchi, other - High flow oxygen by VM CARDIAC: regular rhythm, normal S1 and S2, arrhythmia ABDOMEN: normal bowel sounds, non tender, soft, G-Tube intact, other - paradoxical motion EXTREMITIES: trace edema Laboratory Tests Test 09/21/19 06:46 White Blood Count 7.0 K/UL (4.8-10.8) Red Blood Count 3.67 M/UL (4.70-6.10) L Hemoglobin 11.5 G/DL (14.2-18.0) L Hematocrit 36.0 % (42.0-52.0) L Mean Corpuscular Volume 98 FL (80-99) Mean Corpuscular Hemoglobin 31.2 PG (27.0-31.0) H Mean Corpuscular Hemoglobin Concent 31.8 G/DL (32.0-36.0) L Red Cell Distribution Width 14.7 % (11.6-14.8) Platelet Count 175 K/UL (150-450) Mean Platelet Volume 7.3 FL (6.5-10.1) Neutrophils (%) (Auto) % (45.0-75.0) Lymphocytes (%) (Auto) % (20.0-45.0) Monocytes (%) (Auto) % (1.0-10.0) Eosinophils (%) (Auto) % (0.0-3.0) Basophils (%) (Auto) % (0.0-2.0) Differential Total Cells Counted 100 Neutrophils % (Manual) 82 % (45-75) H Lymphocytes % (Manual) 12 % (20-45) L Monocytes % (Manual) 4 % (1-10) Eosinophils % (Manual) 2 % (0-3) Basophils % (Manual) 0 % (0-2) Band Neutrophils 0 % (0-8) Platelet Estimate Adequate Platelet Morphology Normal Anisocytosis 1+ Sodium Level 141 MMOL/L (136-145) Potassium Level 3.9 MMOL/L (3.5-5.1) Chloride Level 104 MMOL/L (98-107) Carbon Dioxide Level 28 MMOL/L (21-32) Anion Gap 10 mmol/L (5-15) Blood Urea Nitrogen 15 mg/dL (7-18) Creatinine 0.8 MG/DL (0.55-1.30) Estimat Glomerular Filtration Rate > 60 mL/min (>60) Glucose Level 113 MG/DL (74-106) H Calcium Level 8.5 MG/DL (8.5-10.1) Magnesium Level 1.8 MG/DL (1.8-2.4) Total Bilirubin 0.4 MG/DL (0.2-1.0) Aspartate Amino Transf (AST/SGOT) 83 U/L (15-37) H Alanine Aminotransferase (ALT/SGPT) 117 U/L (12-78) H Alkaline Phosphatase 77 U/L (46-116) Troponin I 0.016 ng/mL (0.000-0.056) Total Protein 6.0 G/DL (6.4-8.2) L Albumin 2.0 G/DL (3.4-5.0) L Globulin 4.0 g/dL Albumin/Globulin Ratio 0.5 (1.0-2.7) L Microbiology Date/Time Source Procedure Growth Status 09/19/19 06:30 Stool Clostridium difficile Toxin Assay - Final Complete CHEST XRAY: CT scan - lung mass and satellite lesions. Venous Duplex negative for DVT Assessment/Plan Assessment/Plan Respiratory Failure COPD Hypoxia Lung Cancer Dehydration Hypernatremia corrected Hypokalemia corrected Acute myocardial ischemia Chronic diastolic CHF Atrial ectopy Chronic RBBB Severe protein/calorie malnutrition Dysphagia with GTube Prognosis grave PLAN: Off IVF O2 Abx Resp hygiene DVT prophyl Nutritional support Continue beta maksim Samm Mariscal MD Sep 21, 2019 23:35
[2019-09-22] VITALS: BP 122/58
--- NOTE | 2019-09-22 03:10 | NUR ---
NURSE NOTES: Patient's oxygen saturation is 87-88%, RR-31, on venturi mask @ 8Lpm at 40% Fi02. Elevated head of bed and oral suction was done. Breathing treatment was given by RT. After those management, oxygen saturation went up to 90-91%. Will continue to monitor.
[2019-09-22 04:00] VITALS: BP 130/63
--- NOTE | 2019-09-22 04:00 | NUR ---
NURSE NOTES: Called and left a message to Dr. Mariscal and updated him regarding patient's oxygen saturation, awaiting for call back.
[2019-09-22] MEDS: Zosyn 3.375gm q8h **Extended infusion IVPB SCH ×6 (06:01→22:00)
--- NOTE | 2019-09-22 07:27 | NUR ---
NURSE NOTES: Received report from JEFF Dias. Pt in bed awake and disoriented, open his eyes when talked. IV site in right upper midline with 1 lumen. Sinus rhythm noted on the quality assurance monitor chassis. Side railsx3 up for safety. Call light within easy reach. Left wrist restraint noted. Release left wrist to asses skin and the pt tried pulling O2 mask right away. No skin breakdown noted. Reapplied left wrist restraint. F/C intact and patent and draining well with yellow color urine. G-tube site patent, intact and running with Glucerna 1.5 @40ml/hr. O2 8LPM (Fiow 40%) via venturi mask and sating 94-97%. Will continue plan of care.
--- NOTE | 2019-09-22 07:27 | NUR ---
HAND-OFF: Report given to JEFF Goyal. At this time patient's oxygen saturation is 93-94%. Plan of care endorsed.
[2019-09-22 08:00] VITALS: BP 116/72
--- NOTE | 2019-09-22 08:09 | NUR ---
RD ASSESSMENT & RECOMMENDATIONS SEE CARE ACTIVITY FOR COMPLETE ASSESSMENT DAILY ESTIMATED NEEDS: Needs based on Wound, cancer/ 68kg 25-35 kcals/kg 7333-1707 total kcals 1.25-2 g protein/kg 85-136 g total protein 25-30 mL/kg 9647-9817 total fluid mLs NUTRITION DIAGNOSIS: * Swallowing difficulty r/t dysphagia as evidenced by pt is PEG dep. * Increased kcal/prot intake needs R/T wound healing and catabolic dx as evidenced by admitted w/ wounds including DTPI wounds @ Rt heel and sacrococcyx, and partial thickness Pressure Injury at R Scapula, pt w/ dx of metastatic lung CA. CURRENT TF: Glucerna 1.5 @ 40ml/hr x 24 hrs ENTERAL NUTRITION RECOMMENDATIONS: Vital AF 1.2 @ 60ml/hr x 24 hrs to provide 1440ml, 1728kcal, 108g prot, 1167ml free water - With persistent diarrhea, rec TF change to elemental formula of Vital AF 1.2 for improved GI tolerance - Initiate Vital AF 1.2 @ 20ml/hr x 6hrs, advance 10ml q 4-6 hrs as tolerated to goal rate - Flush per MD/ HOB over 30 degrees ADDITIONAL RECOMMENDATIONS: 1) Calibrated bedscale wts 2) Replete lytes as needed (K low 3.2) 3) Wound care: add Vit C 250mg QD NARCISO in 4oz water BID 4) Monitor for diarrhea- add probiotics Trial of elemental TF as above
[2019-09-22] MEDS: Atenolol 25mg tab GT SCH (08:22)
[2019-09-22 09:01] LABS: ALANINE AMINOTRANSFERASE 102 U/L (12-78); ALBUMIN 1.8 G/DL (3.4-5.0); ALBUMIN/GLOBULIN RATIO 0.4 (1.0-2.7); ALKALINE PHOSPHATASE 77 U/L (46-116); ANION GAP 6 mmol/L (5-15); ASPARTATE AMINO TRANSFERASE 58 U/L (15-37); BILIRUBIN,TOTAL 0.3 MG/DL (0.2-1.0); BLOOD UREA NITROGEN 15 mg/dL (7-18); CALCIUM 8.7 MG/DL (8.5-10.1); CARBON DIOXIDE 32 MMOL/L (21-32); CHLORIDE 101 MMOL/L (98-107); CREATININE 1.1 MG/DL (0.55-1.30); POTASSIUM 3.7 MMOL/L (3.5-5.1); SODIUM 139 MMOL/L (136-145)
--- NOTE | 2019-09-22 10:43 | Surgery Progress Note ---
Surgery Progress Note Subjective Additional Comments respiratory poor on face mask ill appearing labs improved congested chest CT noted Objective Last 24 Hour Vital Signs Date Time Temp Pulse Resp B/P (MAP) Pulse Ox O2 Delivery O2 Flow Rate FiO2 09/22/19 09:00 Venturi Mask 8.0 09/22/19 08:22 77 116/72 09/22/19 08:00 80 09/22/19 08:00 97.7 77 27 116/72 (87) 97 09/22/19 04:00 79 09/22/19 04:00 97.7 90 27 130/63 (85) 91 09/22/19 03:07 82 17 94 Venturi Mask 8.0 40 81 18 90 09/22/19 00:00 98.2 73 28 122/58 (79) 96 09/22/19 00:00 79 09/21/19 21:00 Venturi Mask 8.0 09/21/19 20:00 97.1 74 26 117/55 (75) 95 09/21/19 20:00 74 09/21/19 19:00 95 Venturi Mask 8.0 40 09/21/19 16:00 77 09/21/19 16:00 97.9 84 24 127/49 (75) 92 09/21/19 12:00 96.9 74 34 122/51 (74) 97 09/21/19 12:00 71 I&O Intake and Output 09/21/19 09/22/19 19:00 07:00 Intake Total 640 ml 1050 ml Output Total 1000 ml Balance -360 ml 1050 ml Free Water 200 ml IV Total 400 ml 500 ml Tube Feeding 240 ml 350 ml Output Urine Total 1000 ml # Bowel Movements 1 Dressing: other Wound: other Drains: other Cardiovascular: RSR Respiratory: decreased breath sounds Abdomen: soft, non-tender, present bowel sounds Extremities: no tenderness, no cyanosis, other Laboratory Tests Test 09/22/19 07:45 Sodium Level 139 MMOL/L (136-145) Potassium Level 3.7 MMOL/L (3.5-5.1) Chloride Level 101 MMOL/L (98-107) Carbon Dioxide Level 32 MMOL/L (21-32) Anion Gap 6 mmol/L (5-15) Blood Urea Nitrogen 15 mg/dL (7-18) Creatinine 1.1 MG/DL (0.55-1.30) Estimat Glomerular Filtration Rate > 60 mL/min (>60) Glucose Level 128 MG/DL (74-106) H Calcium Level 8.7 MG/DL (8.5-10.1) Total Bilirubin 0.3 MG/DL (0.2-1.0) Aspartate Amino Transf (AST/SGOT) 58 U/L (15-37) H Alanine Aminotransferase (ALT/SGPT) 102 U/L (12-78) H Alkaline Phosphatase 77 U/L (46-116) Total Protein 6.7 G/DL (6.4-8.2) Albumin 1.8 G/DL (3.4-5.0) L Globulin 4.9 g/dL Albumin/Globulin Ratio 0.4 (1.0-2.7) L Plan Problems: (1) ARF (acute renal failure) (2) CVA (cerebral vascular accident) (3) Dehydration (4) Anemia (5) Metastatic lung cancer (metastasis from lung to other site) Assessment & Plan: here is a masslike consolidation noted in the left upper lobe with air bronchogram. It extends from the left suprahilar region to the periphery. With the air bronchogram, this is likely an infectious/inflammatory consolidation rather than a distinct mass. There is a lobulated mass identified in the right midlung adjacent to the right heart margin measuring 4.3 x 3.9 cm. An adjacent satellite lesion is identified in the lateral right upper lobe measuring 1.2 cm. There are reticulonodular interstitial densities noted scattered in the mid to lower lung zones bilaterally. Dependent infiltrates also identified in both lung bases. Right upper paratracheal adenopathy noted near the root of the great vessels. Smaller lymph nodes identified at the azygous region and precarinal space. There is no effusion. Limited images through the upper abdomen show a G-tube in place. There is a left adrenal mass measuring 2.7 cm likely metastatic and there are several right renal cysts. IMPRESSION: LOBULATED MASS IN THE RIGHT MIDLUNG ADJACENT TO THE RIGHT HEART MARGIN CONSISTENT PATIENT'S HISTORY OF PRIMARY LUNG CANCER. METASTATIC DISEASE INCLUDING A SATELLITE LESION LATERAL RIGHT UPPER LOBE WELL NUMEROUS RETICULONODULAR DENSITIES IN THE MID TO LOWER LUNG ZONES. MASSLIKE CONSOLIDATION IN THE LEFT UPPER LOBE WITH AIR BRONCHOGRAM, MORE LIKELY INFECTIOUS/INFLAMMATORY. BIBASILAR INFILTRATES ALSO NOTED. LEFT ADRENAL MASS LIKELY METASTASIS. RIGHT RENAL CYSTS. G-TUBE IN PLACE. (6) Encephalopathy due to infection (7) Sepsis Assessment & Plan: 84-year-old male presented with leukocytosis, hypokalemia, abnormal labs, malnutrition, hypoalbuminemia. Hypokalemia. Pt presented on admission with multiple Pressure injuries. Partial thickness Pressure Injury R Scapula(L)1.5cm x (W)2.5cm. Raymond epithelial at base of wound. Edges adherent to base of wound. No erythema or evidence of skin breakdown periwound. DTPI Sacrococcygeal area(L)1.5cm x (W)3.1cm. Base of pressure injury is purpuric ,indurated with surrounding maroon borders. Incontinence Associated Dermatitis periwound Perianally, R and L Gluteus including both ischium and scrotum. Skin is erythematous with scattered areas of maceration. DTPI medial R Heel(L)4.7cmx (W)5.2cm..Intact blood filled blister noted . Marginal erythema along borders . Periwound, R Heel is boggy but blanchable. L Heel is boggy with non-blanchable erythema. Tx.Plan: Cover wound R Scapula with Optifoam drsg. Change every 7 days and prn. Apply Moisture Barrier Paste to Sacrococcygeal wound. Cover with Optifoam drsg. Change every 3 days and prn. Apply Moisture Barrier Paste to Groin,Scrotum , Buttocks with each incontinence care. Apply Betadine to R Heel. Cover with Optifoam drsg. Changee very 3 days and prn. Apply Cavilon Skin Barrier to L Heel. Cover with Optifoam drsg. Change every 7 days and prn. Reposition at least every 2hours or as tolerated. Off-load heels with Pillow. APM/CRUZITO Mattress overlay. Nutritional optimization Trend labs, Abx as per ID will follow with recs thank you ill appearing. labs better cont current care plan DAILY ESTIMATED NEEDS: Needs based on Wound, cancer/ 68kg 25-35 kcals/kg 0711-0295 total kcals 1.25-2 g protein/kg 85-136 g total protein 25-30 mL/kg 5552-0765 total fluid mLs NUTRITION DIAGNOSIS: * Swallowing difficulty r/t dysphagia as evidenced by pt is PEG dep. * Increased kcal/prot intake needs R/T wound healing and catabolic dx as evidenced by admitted w/ wounds including DTPI wounds @ Rt heel and sacrococcyx, and partial thickness Pressure Injury at R Scapula, pt w/ dx of metastatic lung CA. CURRENT TF: Glucerna 1.5 @ 40ml/hr x 24 hrs ENTERAL NUTRITION RECOMMENDATIONS: Vital AF 1.2 @ 60ml/hr x 24 hrs to provide 1440ml, 1728kcal, 108g prot, 1167ml free water - With persistent diarrhea, rec TF change to elemental formula of Vital AF 1.2 for improved GI tolerance - Initiate Vital AF 1.2 @ 20ml/hr x 6hrs, advance 10ml q 4-6 hrs as tolerated to goal rate - Flush per MD/ HOB over 30 degrees ADDITIONAL RECOMMENDATIONS: 1) Calibrated bedscale wts 2) Replete lytes as needed (K low 3.2) 3) Wound care: add Vit C 250mg QD NARCISO in 4oz water BID 4) Monitor for diarrhea- add probiotics Trial of elemental TF as above (8) UTI (urinary tract infection) (9) HCAP (healthcare-associated pneumonia) Epifanio Robin Sep 22, 2019 10:43
[2019-09-22 12:00] VITALS: BP 121/65
--- NOTE | 2019-09-22 14:51 | General Progress Note ---
Assessment/Plan Problem List: (1) HCAP (healthcare-associated pneumonia) ICD Codes: J18.9 - Pneumonia, unspecified organism SNOMED: 840777276, 473020922 (2) UTI (urinary tract infection) ICD Codes: N39.0 - Urinary tract infection, site not specified SNOMED: 10173955, 436989850 Qualifiers: Qualified Codes: N30.00 - Acute cystitis without hematuria (3) Sepsis ICD Codes: A41.9 - Sepsis, unspecified organism SNOMED: 57600742, 70480414 Qualifiers: Qualified Codes: A41.9 - Sepsis, unspecified organism; R65.20 - Severe sepsis without septic shock; N17.9 - Acute kidney failure, unspecified (4) Encephalopathy due to infection ICD Codes: G93.49 - Other encephalopathy; B99.9 - Unspecified infectious disease SNOMED: 06560708, 18657039 (5) Metastatic lung cancer (metastasis from lung to other site) ICD Codes: C34.90 - Malignant neoplasm of unspecified part of unspecified bronchus or lung SNOMED: 81547005, 150729371 Qualifiers: Qualified Codes: C34.90 - Malignant neoplasm of unspecified part of unspecified bronchus or lung (6) CVA (cerebral vascular accident) ICD Codes: I63.9 - Cerebral infarction, unspecified SNOMED: 301519695, 885339342 Qualifiers: Qualified Codes: I63.9 - Cerebral infarction, unspecified (7) ARF (acute renal failure) ICD Codes: N17.9 - Acute kidney failure, unspecified SNOMED: 11448687, 846113142 Qualifiers: Qualified Codes: N17.9 - Acute kidney failure, unspecified (8) Dehydration ICD Codes: E86.0 - Dehydration SNOMED: 87583674, 179593053 (9) Anemia ICD Codes: D64.9 - Anemia, unspecified SNOMED: 274971362, 595415142 Qualifiers: Qualified Codes: D64.9 - Anemia, unspecified Status: stable, not improved, unchanged Assessment/Plan: dc ivf monitor lytes/labs increase water flushes tube feeds monitor residuals resp rx titrate o2- wean as able monitor abg ct chest reviewed iv abx follow up cultures venous duplex legs pt is full code with aggressive care. family aware of poor prognosis. offered hospice. family declined. Subjective ROS Limited/Unobtainable: Yes Constitutional: Reports: malaise, weakness HEENT: Reports: no symptoms Cardiovascular: Reports: no symptoms Respiratory: Reports: cough, shortness of breath Gastrointestinal/Abdominal: Reports: difficulty swallowing Genitourinary: Reports: no symptoms Neurologic/Psychiatric: Reports: pre-existing deficit Endocrine: Reports: no symptoms Hematologic/Lymphatic: Reports: no symptoms Allergies: Coded Allergies: No Known Allergies (Unverified , 09/17/19) All Systems: reviewed and negative except above Subjective No significant change. Remains on high flow oxygen Via Ventimask. Responsive. CT of the chest noted-right midlung mass. Multiple satellite lesions. Left masslike consolidation consistent with pneumonia Remains poorly responsive. Tolerating feedings. WBC improving. On antibiotics. Cardiology and pulmonary noted. Objective Last 24 Hour Vital Signs Date Time Temp Pulse Resp B/P (MAP) Pulse Ox O2 Delivery O2 Flow Rate FiO2 09/22/19 12:00 97.5 69 27 121/65 (83) 95 09/22/19 12:00 70 09/22/19 09:00 Venturi Mask 8.0 09/22/19 08:22 77 116/72 09/22/19 08:00 80 09/22/19 08:00 97.7 77 27 116/72 (87) 97 09/22/19 04:00 79 09/22/19 04:00 97.7 90 27 130/63 (85) 91 09/22/19 03:07 82 17 94 Venturi Mask 8.0 40 81 18 90 09/22/19 00:00 98.2 73 28 122/58 (79) 96 09/22/19 00:00 79 09/21/19 21:00 Venturi Mask 8.0 09/21/19 20:00 97.1 74 26 117/55 (75) 95 09/21/19 20:00 74 09/21/19 19:00 95 Venturi Mask 8.0 40 09/21/19 16:00 77 09/21/19 16:00 97.9 84 24 127/49 (75) 92 Intake and Output 09/21/19 09/22/19 19:00 07:00 Intake Total 640 ml 1127.5 ml Output Total 1000 ml Balance -360 ml 1127.5 ml Free Water 200 ml IV Total 400 ml 577.5 ml Tube Feeding 240 ml 350 ml Output Urine Total 1000 ml # Bowel Movements 1 Laboratory Tests 09/22/19 07:45: Sodium Level 139, Potassium Level 3.7, Chloride Level 101, Carbon Dioxide Level 32, Anion Gap 6, Blood Urea Nitrogen 15, Creatinine 1.1, Estimat Glomerular Filtration Rate > 60, Glucose Level 128H, Calcium Level 8.7, Total Bilirubin 0.3 , Aspartate Amino Transf (AST/SGOT) 58H, Alanine Aminotransferase (ALT/SGPT) 102H, Alkaline Phosphatase 77, Total Protein 6.7, Albumin 1.8L, Globulin 4.9, Albumin/Globulin Ratio 0.4L Height (Feet): 5 Height (Inches): 10.00 Weight (Pounds): 155 Objective General Appearance: WD/WN, mild distress, cachetic, thin EENT: normal ENT inspection Neck: non-tender, normal alignment, supple Cardiovascular: normal peripheral pulses, normal rate, regular rhythm Respiratory/Chest: rhonchi - bilaterally Abdomen: normal bowel sounds, non tender, soft, no organomegaly Extremities: normal range of motion, non-tender Edema: no edema noted Arm (L), no edema noted Arm (R) Sherif Echevarria MD Sep 22, 2019 14:51
[2019-09-22 16:00] VITALS: BP 118/51
--- NOTE | 2019-09-22 17:10 | Pulmonology Progress Note ---
Subjective ROS Limited/Unobtainable: Yes Constitutional: Denies: fever Allergies: Coded Allergies: No Known Allergies (Unverified , 09/17/19) All Systems: reviewed and negative except above Subjective care noted on oxygen no distress Objective Last 24 Hour Vital Signs Date Time Temp Pulse Resp B/P (MAP) Pulse Ox O2 Delivery O2 Flow Rate FiO2 09/22/19 16:00 98.2 66 24 118/51 (73) 95 09/22/19 12:00 97.5 69 27 121/65 (83) 95 09/22/19 12:00 70 09/22/19 09:00 Venturi Mask 8.0 09/22/19 08:22 77 116/72 09/22/19 08:00 80 09/22/19 08:00 97.7 77 27 116/72 (87) 97 09/22/19 04:00 79 09/22/19 04:00 97.7 90 27 130/63 (85) 91 09/22/19 03:07 82 17 94 Venturi Mask 8.0 40 81 18 90 09/22/19 00:00 98.2 73 28 122/58 (79) 96 09/22/19 00:00 79 09/21/19 21:00 Venturi Mask 8.0 09/21/19 20:00 97.1 74 26 117/55 (75) 95 09/21/19 20:00 74 09/21/19 19:00 95 Venturi Mask 8.0 40 Intake and Output 09/21/19 09/22/19 19:00 07:00 Intake Total 640 ml 1127.5 ml Output Total 1000 ml Balance -360 ml 1127.5 ml Free Water 200 ml IV Total 400 ml 577.5 ml Tube Feeding 240 ml 350 ml Output Urine Total 1000 ml # Bowel Movements 1 Objective GENERAL: Patient is an ill-appearing male. NECK: Supple. LUNGS: With coarse breath sounds, moderate air entry. CARDIAC: Regular rate and rhythm with soft systolic murmur. ABDOMEN: Soft, nontender. No distention. EXTREMITIES: No cyanosis or clubbing. No edema. NEUROLOGIC: Weak, confused overall. reviewed and edited Laboratory Tests 09/22/19 07:45: Sodium Level 139, Potassium Level 3.7, Chloride Level 101, Carbon Dioxide Level 32, Anion Gap 6, Blood Urea Nitrogen 15, Creatinine 1.1, Estimat Glomerular Filtration Rate > 60, Glucose Level 128H, Calcium Level 8.7, Total Bilirubin 0.3 , Aspartate Amino Transf (AST/SGOT) 58H, Alanine Aminotransferase (ALT/SGPT) 102H, Alkaline Phosphatase 77, Total Protein 6.7, Albumin 1.8L, Globulin 4.9, Albumin/Globulin Ratio 0.4L Current Medications Medications (Trade) Dose Ordered Sig/Sharda Route PRN Reason Start Time Stop Time Status Last Admin Dose Admin Acetaminophen (Tylenol) 325 mg Q6H PRN GT Mild Pain (Pain Scale 1-3) 09/17/19 08:15 10/17/19 08:14 Ascorbic Acid (Vitamin C) 250 mg DAILY ORAL 09/23/19 09:00 10/23/19 08:59 Atenolol (Tenormin) 25 mg DAILY GT 09/17/19 09:00 10/17/19 08:59 09/22/19 08:22 Atorvastatin Calcium (Lipitor) 20 mg BEDTIME GT 09/17/19 21:00 12/16/19 20:59 09/21/19 20:18 Chlorhexidine Gluconate (Deborah-Hex 2%) 1 applic DAILY@2000 TOPIC 09/20/19 20:00 12/19/19 19:59 09/21/19 19:51 Dextrose 1,000 ml @ 50 mls/hr Q20H IV 09/21/19 10:46 10/21/19 10:45 09/21/19 22:46 Flecainide Acetate (Tambocor) 50 mg BID GT 09/17/19 09:00 12/16/19 08:59 09/22/19 08:22 Lansoprazole (Prevacid) 30 mg DAILY GT 09/17/19 09:00 10/17/19 08:59 09/22/19 08:22 Piperacillin Sod/ Tazobactam Sod 3.375 gm/Sodium Chloride 110 ml @ 27.5 mls/hr EVERY 8 HOURS IVPB 09/17/19 06:00 09/26/19 05:59 09/22/19 14:15 Assessment/Plan Assessment/Plan IMPRESSION: Possible pneumonia, lung mass, history of cancer, history of smoking, history of CVA, history of aspiration, hypernatremia, acute renal failure, leukocytosis, possible sepsis. PLAN care noted CT reviewed monitor changes defer biopsy or work up for now obtain records if able to discuss further monitor imaging- repeat today care reviewed and discussed impression, plan, and exam edited and reviewed in detail care discussed with Real Roberson MD Sep 22, 2019 17:10
--- NOTE | 2019-09-22 19:45 | NUR ---
HAND-OFF: Report given to JEFF Dahl. Pt remains stable
--- NOTE | 2019-09-22 19:45 | NUR ---
NURSE NOTES: Received report from JEFF Goyal. Patient is asleep, alert and oriented x 0, non-verbal. cage/vault supervisor is in placed, shows sinus rhythm with BB. With oxygen via venturi mask @ 8LPM (40% Fi02), saturation at this time is 93-94%, still with productive cough. With g-tube, on Glucerna 1.5 @ 40cc/hour, flushing of 100 cc every 6 hours. Delong catheter in placed, F-16 drained dark yellow urine output. On fall and aspiration precaution, with restraints in left wrist. Safety measures are in placed, bed in locked and lowest position, side rails up x 2. Will continue plan of care.
[2019-09-22 20:00] VITALS: BP 122/59
[2019-09-22] MEDS: Atorvastatin 20mg tab GT SCH (20:11)
[2019-09-22] MEDS: Dyna-Hex 2% Top Sol 2oz TOPIC SCH (20:11)
[2019-09-23] VITALS: BP 124/53
[2019-09-23] MEDS ORDERED: Albuterol/Ipratropium 3ml neb HHN PRN (01:00)
--- NOTE | 2019-09-23 01:06 | Cardiology Progress Note ---
Subjective DATE OF SERVICE: Sep 22, 2019 Still is very congested on high flow O2 by Ventimask. Unable to taper off oxygen. I spoke to family members today; they now agree to DNR, and are aware of patients grave prognosis. They want care cont'd otherwise at current level of support, at least until patient's son can arrive from [place]. Monitor: Sinus and sinus tachycardia; occ PAC's. Review of Systems: no change from my evaluation on 09/19/2019, other than noted above. Objective Last 24 Hour Vital Signs Date Time Temp Pulse Resp B/P (MAP) Pulse Ox O2 Delivery O2 Flow Rate FiO2 09/23/19 00:00 83 09/23/19 00:00 97.9 82 24 124/53 (76) 94 09/22/19 21:00 Venturi Mask 8.0 09/22/19 20:09 94 Venturi Mask 8.0 40 09/22/19 20:00 98.0 75 26 122/59 (80) 94 09/22/19 20:00 74 09/22/19 16:00 98.2 66 24 118/51 (73) 95 09/22/19 16:00 69 09/22/19 12:00 97.5 69 27 121/65 (83) 95 09/22/19 12:00 70 09/22/19 09:00 Venturi Mask 8.0 09/22/19 08:22 77 116/72 09/22/19 08:00 80 09/22/19 08:00 97.7 77 27 116/72 (87) 97 09/22/19 04:00 79 09/22/19 04:00 97.7 90 27 130/63 (85) 91 09/22/19 03:07 82 17 94 Venturi Mask 8.0 40 81 18 90 HEENT: normal ENT inspection RHYTHM: NSR, PACs LUNGS: accessory muscle use, bilateral rhonchi, other - High flow oxygen by VM CARDIAC: regular rhythm, normal S1 and S2, arrhythmia ABDOMEN: normal bowel sounds, non tender, soft, G-Tube intact, other - paradoxical motion EXTREMITIES: trace edema Laboratory Tests Test 09/22/19 07:45 Sodium Level 139 MMOL/L (136-145) Potassium Level 3.7 MMOL/L (3.5-5.1) Chloride Level 101 MMOL/L (98-107) Carbon Dioxide Level 32 MMOL/L (21-32) Anion Gap 6 mmol/L (5-15) Blood Urea Nitrogen 15 mg/dL (7-18) Creatinine 1.1 MG/DL (0.55-1.30) Estimat Glomerular Filtration Rate > 60 mL/min (>60) Glucose Level 128 MG/DL (74-106) H Calcium Level 8.7 MG/DL (8.5-10.1) Total Bilirubin 0.3 MG/DL (0.2-1.0) Aspartate Amino Transf (AST/SGOT) 58 U/L (15-37) H Alanine Aminotransferase (ALT/SGPT) 102 U/L (12-78) H Alkaline Phosphatase 77 U/L (46-116) Total Protein 6.7 G/DL (6.4-8.2) Albumin 1.8 G/DL (3.4-5.0) L Globulin 4.9 g/dL Albumin/Globulin Ratio 0.4 (1.0-2.7) L Assessment/Plan Assessment/Plan Respiratory Failure COPD Hypoxia Lung Cancer Dehydration Hypernatremia corrected Hypokalemia corrected Acute myocardial ischemia Chronic diastolic CHF Atrial ectopy Chronic RBBB Severe protein/calorie malnutrition Dysphagia with GTube Prognosis grave PLAN: Off IVF O2 Abx Resp hygiene DVT prophyl Nutritional support Continue beta maksim DNR/DNI status Samm Mariscal MD Sep 23, 2019 01:06
[2019-09-23 04:00] VITALS: BP 125/59
[2019-09-23] MEDS: Zosyn 3.375gm q8h **Extended infusion IVPB SCH ×6 (05:48→21:14)
[2019-09-23 07:16] LABS: ANION GAP 6 mmol/L (5-15); BLOOD UREA NITROGEN 16 mg/dL (7-18); CARBON DIOXIDE 31 MMOL/L (21-32); CHLORIDE 101 MMOL/L (98-107); CREATININE 1.2 MG/DL (0.55-1.30); POTASSIUM 3.8 MMOL/L (3.5-5.1); SODIUM 138 MMOL/L (136-145)
[2019-09-23 07:24] LABS: BASOPHILS % (AUTO) 0.2 % (0.0-2.0); EOSINOPHILS % (AUTO) 1.4 % (0.0-3.0); HEMATOCRIT 35.4 % (42.0-52.0); HEMOGLOBIN 11.2 G/DL (14.2-18.0); LYMPHOCYTES % (AUTO) 10.9 % (20.0-45.0); MEAN CORPUSCULAR VOLUME 98 FL (80-99); MONOCYTES % (AUTO) 3.6 % (1.0-10.0); NEUTROPHILS % (AUTO) 83.9 % (45.0-75.0); PLATELET COUNT 218 K/UL (150-450); RED BLOOD COUNT 3.62 M/UL (4.70-6.10); RED CELL DISTRIBUTION WIDTH 14.5 % (11.6-14.8); WHITE BLOOD COUNT 7.9 K/UL (4.8-10.8)
--- NOTE | 2019-09-23 07:29 | NUR ---
HAND-OFF: Report given to JEFF Francis. At this time, oxygen saturation is 94-95. RN made awake of transfer to med-surg floor, awaiting for bed availability. Plan of care endorsed.
--- NOTE | 2019-09-23 07:30 | NUR ---
NURSE NOTES: Recieved report from JEFF Jung. Patient AAO x0. Does not open eyes to voice or shaking. Short of breath at rest on venturi mask 8L/40% FiO2. Continuous oximetry on with SPO2 9%. Addendum: 09/23/19 at 0802 by Katie Norman RN NURSE NOTES: Recieved report from JEFF Jung. Patient AAO x0. Opens L eye to shaking. Spontaneous movement of L extremity observed. Short of breath at rest on venturi mask 8L/40% FiO2. Continuous oximetry on with SPO2 95%, RR 35 bpm, Pulse 87 on portable monitor. Right upper arm midline intact with D5W infusing 50 mL/hr. No redness or infiltration observed. Delong draining clear yellow urine to gravity. G tube in place, patent and flushed with TF running at goal 40 mL/hr. Gastric residual 5 mL. L soft wrist restraint in place for safety/removing devices. Radial pulses palpable and equal bilaterally, no edema, skin color normal for ethnicity, warm to touch. Fall precautions in place.
[2019-09-23 08:00] VITALS: BP 135/69
--- NOTE | 2019-09-23 08:48 | General Progress Note ---
Assessment/Plan Problem List: (1) HCAP (healthcare-associated pneumonia) ICD Codes: J18.9 - Pneumonia, unspecified organism SNOMED: 660277573, 707381398 (2) UTI (urinary tract infection) ICD Codes: N39.0 - Urinary tract infection, site not specified SNOMED: 56449934, 274152621 Qualifiers: Qualified Codes: N30.00 - Acute cystitis without hematuria (3) Sepsis ICD Codes: A41.9 - Sepsis, unspecified organism SNOMED: 43736920, 84936576 Qualifiers: Qualified Codes: A41.9 - Sepsis, unspecified organism; R65.20 - Severe sepsis without septic shock; N17.9 - Acute kidney failure, unspecified (4) Encephalopathy due to infection ICD Codes: G93.49 - Other encephalopathy; B99.9 - Unspecified infectious disease SNOMED: 96699540, 45669957 (5) Metastatic lung cancer (metastasis from lung to other site) ICD Codes: C34.90 - Malignant neoplasm of unspecified part of unspecified bronchus or lung SNOMED: 98430422, 946197475 Qualifiers: Qualified Codes: C34.90 - Malignant neoplasm of unspecified part of unspecified bronchus or lung (6) CVA (cerebral vascular accident) ICD Codes: I63.9 - Cerebral infarction, unspecified SNOMED: 082668137, 046682898 Qualifiers: Qualified Codes: I63.9 - Cerebral infarction, unspecified (7) ARF (acute renal failure) ICD Codes: N17.9 - Acute kidney failure, unspecified SNOMED: 82108827, 292414888 Qualifiers: Qualified Codes: N17.9 - Acute kidney failure, unspecified (8) Dehydration ICD Codes: E86.0 - Dehydration SNOMED: 73812959, 825333327 (9) Anemia ICD Codes: D64.9 - Anemia, unspecified SNOMED: 942178015, 347108911 Qualifiers: Qualified Codes: D64.9 - Anemia, unspecified Status: stable, not improved, unchanged Assessment/Plan: monitor lytes/labs cont water flushes tube feeds monitor residuals resp rx titrate o2- wean as able monitor abg ct chest reviewed iv abx follow up cultures venous duplex legs dnr now. terminal prognosis await for family to arrive from out of state Subjective ROS Limited/Unobtainable: Yes Constitutional: Reports: no symptoms HEENT: Reports: no symptoms Cardiovascular: Reports: no symptoms Respiratory: Reports: cough, SOB with excertion, SOB at rest, sputum Gastrointestinal/Abdominal: Reports: difficulty swallowing Genitourinary: Reports: no symptoms Neurologic/Psychiatric: Reports: pre-existing deficit Endocrine: Reports: no symptoms Hematologic/Lymphatic: Reports: no symptoms Allergies: Coded Allergies: No Known Allergies (Unverified , 09/17/19) All Systems: reviewed and negative except above Subjective No significant change. now dnr. Remains on high flow oxygen Via Ventimask. unResponsive. CT of the chest noted-right midlung mass. Multiple satellite lesions. Left masslike consolidation consistent with pneumonia Remains poorly responsive. Tolerating feedings. WBC improving. On antibiotics. Cardiology and pulmonary noted. Objective Last 24 Hour Vital Signs Date Time Temp Pulse Resp B/P (MAP) Pulse Ox O2 Delivery O2 Flow Rate FiO2 09/23/19 08:21 Venturi Mask 8.0 09/23/19 08:00 98.1 91 30 135/69 (91) 91 09/23/19 08:00 87 09/23/19 04:00 100 09/23/19 04:00 97.0 100 29 125/59 (81) 93 09/23/19 01:06 88 20 93 Venturi Mask 12.0 50 89 22 91 09/23/19 00:00 83 09/23/19 00:00 97.9 82 24 124/53 (76) 94 09/22/19 21:00 Venturi Mask 8.0 09/22/19 20:09 94 Venturi Mask 8.0 40 09/22/19 20:00 98.0 75 26 122/59 (80) 94 09/22/19 20:00 74 09/22/19 16:00 98.2 66 24 118/51 (73) 95 09/22/19 16:00 69 09/22/19 12:00 97.5 69 27 121/65 (83) 95 09/22/19 12:00 70 09/22/19 09:00 Venturi Mask 8.0 Intake and Output 09/22/19 09/23/19 19:00 07:00 Intake Total 1422.5 ml 1050 ml Output Total 1450 ml Balance -27.5 ml 1050 ml Free Water 200 ml 200 ml IV Total 742.5 ml 450 ml Tube Feeding 480 ml 400 ml Output Urine Total 1450 ml Laboratory Tests 09/23/19 05:00: White Blood Count 7.9, Red Blood Count 3.62L, Hemoglobin 11.2L, Hematocrit 35.4L , Mean Corpuscular Volume 98, Mean Corpuscular Hemoglobin 31.0, Mean Corpuscular Hemoglobin Concent 31.7L, Red Cell Distribution Width 14.5, Platelet Count 218, Mean Platelet Volume 7.7, Neutrophils (%) (Auto) 83.9H, Lymphocytes (%) (Auto) 10.9L, Monocytes (%) (Auto) 3.6, Eosinophils (%) (Auto) 1.4, Basophils (%) (Auto) 0.2, Sodium Level 138, Potassium Level 3.8, Chloride Level 101, Carbon Dioxide Level 31, Anion Gap 6, Blood Urea Nitrogen 16, Creatinine 1.2, Estimat Glomerular Filtration Rate 58.0, Glucose Level 133H, Calcium Level 9.0 Height (Feet): 5 Height (Inches): 10.00 Weight (Pounds): 186 Objective General Appearance: WD/WN, mild distress, cachetic, thin EENT: normal ENT inspection Neck: non-tender, normal alignment, supple Cardiovascular: normal peripheral pulses, normal rate, regular rhythm Respiratory/Chest: rhonchi - bilaterally Abdomen: normal bowel sounds, non tender, soft, no organomegaly Extremities: normal range of motion, non-tender Edema: no edema noted Arm (L), no edema noted Arm (R) Sherif Echevarria MD Sep 23, 2019 08:48
--- NOTE | 2019-09-23 08:50 | Pulmonology Progress Note ---
Subjective ROS Limited/Unobtainable: Yes Constitutional: Denies: fever Allergies: Coded Allergies: No Known Allergies (Unverified , 09/17/19) All Systems: reviewed and negative except above Subjective care noted on oxygen no distress Objective Last 24 Hour Vital Signs Date Time Temp Pulse Resp B/P (MAP) Pulse Ox O2 Delivery O2 Flow Rate FiO2 09/23/19 08:21 Venturi Mask 8.0 09/23/19 08:00 98.1 91 30 135/69 (91) 91 09/23/19 08:00 87 09/23/19 04:00 100 09/23/19 04:00 97.0 100 29 125/59 (81) 93 09/23/19 01:06 88 20 93 Venturi Mask 12.0 50 89 22 91 09/23/19 00:00 83 09/23/19 00:00 97.9 82 24 124/53 (76) 94 09/22/19 21:00 Venturi Mask 8.0 09/22/19 20:09 94 Venturi Mask 8.0 40 09/22/19 20:00 98.0 75 26 122/59 (80) 94 09/22/19 20:00 74 09/22/19 16:00 98.2 66 24 118/51 (73) 95 09/22/19 16:00 69 09/22/19 12:00 97.5 69 27 121/65 (83) 95 09/22/19 12:00 70 09/22/19 09:00 Venturi Mask 8.0 Intake and Output 09/22/19 09/23/19 19:00 07:00 Intake Total 1422.5 ml 1050 ml Output Total 1450 ml Balance -27.5 ml 1050 ml Free Water 200 ml 200 ml IV Total 742.5 ml 450 ml Tube Feeding 480 ml 400 ml Output Urine Total 1450 ml Objective GENERAL: Patient is an ill-appearing male. NECK: Supple. LUNGS: With coarse breath sounds, moderate air entry. CARDIAC: Regular rate and rhythm with soft systolic murmur. ABDOMEN: Soft, nontender. No distention. EXTREMITIES: No cyanosis or clubbing. No edema. NEUROLOGIC: Weak, confused overall. reviewed and edited Laboratory Tests 09/23/19 05:00: White Blood Count 7.9, Red Blood Count 3.62L, Hemoglobin 11.2L, Hematocrit 35.4L , Mean Corpuscular Volume 98, Mean Corpuscular Hemoglobin 31.0, Mean Corpuscular Hemoglobin Concent 31.7L, Red Cell Distribution Width 14.5, Platelet Count 218, Mean Platelet Volume 7.7, Neutrophils (%) (Auto) 83.9H, Lymphocytes (%) (Auto) 10.9L, Monocytes (%) (Auto) 3.6, Eosinophils (%) (Auto) 1.4, Basophils (%) (Auto) 0.2, Sodium Level 138, Potassium Level 3.8, Chloride Level 101, Carbon Dioxide Level 31, Anion Gap 6, Blood Urea Nitrogen 16, Creatinine 1.2, Estimat Glomerular Filtration Rate 58.0, Glucose Level 133H, Calcium Level 9.0 Current Medications Medications (Trade) Dose Ordered Sig/Sharda Route PRN Reason Start Time Stop Time Status Last Admin Dose Admin Acetaminophen (Tylenol) 325 mg Q6H PRN GT Mild Pain (Pain Scale 1-3) 09/17/19 08:15 10/17/19 08:14 Albuterol/ Ipratropium (Albuterol/ Ipratropium) 3 ml Q4H PRN HHN Shortness of Breath 09/23/19 01:00 09/28/19 00:59 09/23/19 01:06 Ascorbic Acid (Vitamin C) 250 mg DAILY ORAL 09/23/19 09:00 10/23/19 08:59 Atenolol (Tenormin) 25 mg DAILY GT 09/17/19 09:00 10/17/19 08:59 09/22/19 08:22 Atorvastatin Calcium (Lipitor) 20 mg BEDTIME GT 09/17/19 21:00 12/16/19 20:59 09/22/19 20:11 Chlorhexidine Gluconate (Deborah-Hex 2%) 1 applic DAILY@2000 TOPIC 09/20/19 20:00 12/19/19 19:59 09/22/19 20:11 Dextrose 1,000 ml @ 50 mls/hr Q20H IV 09/21/19 10:46 10/21/19 10:45 09/22/19 18:52 Flecainide Acetate (Tambocor) 50 mg BID GT 09/17/19 09:00 12/16/19 08:59 09/22/19 17:16 Lactobacillus Acidophilus (Culturelle) 1 tab DAILY ORAL 09/23/19 09:00 12/22/19 08:59 Lansoprazole (Prevacid) 30 mg DAILY GT 09/17/19 09:00 10/17/19 08:59 09/22/19 08:22 Piperacillin Sod/ Tazobactam Sod 3.375 gm/Sodium Chloride 110 ml @ 27.5 mls/hr EVERY 8 HOURS IVPB 09/17/19 06:00 09/26/19 05:59 09/23/19 05:48 Assessment/Plan Assessment/Plan IMPRESSION: Possible pneumonia, lung mass, history of cancer, history of smoking, history of CVA, history of aspiration, hypernatremia, acute renal failure, leukocytosis, possible sepsis. PLAN care noted CT reviewed terminal; awaiting family arrival monitor changes defer biopsy or work up for now obtain records if able to discuss further monitor imaging- repeat today care reviewed and discussed impression, plan, and exam edited and reviewed in detail care discussed with Real Roberson MD Sep 23, 2019 08:50
--- NOTE | 2019-09-23 08:58 | NUR ---
CASE MANAGEMENT:REVIEW 09/23/19 SI: PNA. PAFIB. RESPIRATORY FAILURE H/O LUNG CANCER 98.1 91 30 135/69 91% ON VENTURI MASK H/H-11.2/35.4 GLUCOSE+133 IS: IV ZOSYN Q8HRS LACTOBACILLUS GT QD DUONEB INH Q4HRS PRN IVF@50/HR LIPITOR GT QHS ATENOLOL GT QD PREVACID GT QD : TELEMETRY DCP: [facility] PLAN: NOW DNR/DNI TITRATE OXYGEN ABLE DOWNGRADE TO MED/SURG
[2019-09-23] MEDS: Lactobacillus-GG tablet ORAL SCH (10:12)
[2019-09-23] MEDS: Ascorbic Acid 500mg tab ORAL SCH (10:13)
[2019-09-23] MEDS: Atenolol 25mg tab GT SCH (10:13)
--- NOTE | 2019-09-23 10:31 | NUR ---
NURSE NOTES: Increasing adventitious breath sounds on auscultation. SPO2 94% on venturi mask, unchanged FiO2. RR remains at 30 bpm. TF held. RT notified for suction.
--- NOTE | 2019-09-23 10:34 | Infectious Diseases Prog Note ---
Assessment/Plan Assessment/Plan antibiotics : zosyn A 1. post obstructive pneumonia COVID 19 rapid test negative 2. lung cancer 3. CVA 4. hypertension P 1. continue zosyn 2. will follow up cultures 3. poor prognosis Subjective ROS Limited/Unobtainable: Yes Allergies: Coded Allergies: No Known Allergies (Unverified , 09/17/19) Objective Last 24 Hour Vital Signs Date Time Temp Pulse Resp B/P (MAP) Pulse Ox O2 Delivery O2 Flow Rate FiO2 09/23/19 10:13 87 135/69 09/23/19 08:21 Venturi Mask 8.0 09/23/19 08:00 98.1 91 30 135/69 (91) 91 09/23/19 08:00 87 09/23/19 07:00 92 Venturi Mask 8.0 40 09/23/19 04:00 100 09/23/19 04:00 97.0 100 29 125/59 (81) 93 09/23/19 01:06 88 20 93 Venturi Mask 12.0 50 89 22 91 09/23/19 00:00 83 09/23/19 00:00 97.9 82 24 124/53 (76) 94 09/22/19 21:00 Venturi Mask 8.0 09/22/19 20:09 94 Venturi Mask 8.0 40 09/22/19 20:00 98.0 75 26 122/59 (80) 94 09/22/19 20:00 74 09/22/19 16:00 98.2 66 24 118/51 (73) 95 09/22/19 16:00 69 09/22/19 12:00 97.5 69 27 121/65 (83) 95 09/22/19 12:00 70 Height (Feet): 5 Height (Inches): 10.00 Weight (Pounds): 186 Laboratory Tests Test 09/23/19 05:00 White Blood Count 7.9 K/UL (4.8-10.8) Red Blood Count 3.62 M/UL (4.70-6.10) L Hemoglobin 11.2 G/DL (14.2-18.0) L Hematocrit 35.4 % (42.0-52.0) L Mean Corpuscular Volume 98 FL (80-99) Mean Corpuscular Hemoglobin 31.0 PG (27.0-31.0) Mean Corpuscular Hemoglobin Concent 31.7 G/DL (32.0-36.0) L Red Cell Distribution Width 14.5 % (11.6-14.8) Platelet Count 218 K/UL (150-450) Mean Platelet Volume 7.7 FL (6.5-10.1) Neutrophils (%) (Auto) 83.9 % (45.0-75.0) H Lymphocytes (%) (Auto) 10.9 % (20.0-45.0) L Monocytes (%) (Auto) 3.6 % (1.0-10.0) Eosinophils (%) (Auto) 1.4 % (0.0-3.0) Basophils (%) (Auto) 0.2 % (0.0-2.0) Sodium Level 138 MMOL/L (136-145) Potassium Level 3.8 MMOL/L (3.5-5.1) Chloride Level 101 MMOL/L (98-107) Carbon Dioxide Level 31 MMOL/L (21-32) Anion Gap 6 mmol/L (5-15) Blood Urea Nitrogen 16 mg/dL (7-18) Creatinine 1.2 MG/DL (0.55-1.30) Estimat Glomerular Filtration Rate 58.0 mL/min (>60) Glucose Level 133 MG/DL (74-106) H Calcium Level 9.0 MG/DL (8.5-10.1) Current Medications Medications (Trade) Dose Ordered Sig/Sharda Route PRN Reason Start Time Stop Time Status Last Admin Dose Admin Acetaminophen (Tylenol) 325 mg Q6H PRN GT Mild Pain (Pain Scale 1-3) 09/17/19 08:15 10/17/19 08:14 Albuterol/ Ipratropium (Albuterol/ Ipratropium) 3 ml Q4H PRN HHN Shortness of Breath 09/23/19 01:00 09/28/19 00:59 09/23/19 01:06 Ascorbic Acid (Vitamin C) 250 mg DAILY ORAL 09/23/19 09:00 10/23/19 08:59 09/23/19 10:13 Atenolol (Tenormin) 25 mg DAILY GT 09/17/19 09:00 10/17/19 08:59 09/23/19 10:13 Atorvastatin Calcium (Lipitor) 20 mg BEDTIME GT 09/17/19 21:00 12/16/19 20:59 09/22/19 20:11 Chlorhexidine Gluconate (Deborah-Hex 2%) 1 applic DAILY@1999 TOPIC 09/20/19 20:00 12/19/19 19:59 09/22/19 20:11 Dextrose 1,000 ml @ 50 mls/hr Q20H IV 09/21/19 10:46 10/21/19 10:45 09/22/19 18:52 Flecainide Acetate (Tambocor) 50 mg BID GT 09/17/19 09:00 12/16/19 08:59 09/23/19 10:13 Lactobacillus Acidophilus (Culturelle) 1 tab DAILY ORAL 09/23/19 09:00 12/22/19 08:59 09/23/19 10:12 Lansoprazole (Prevacid) 30 mg DAILY GT 09/17/19 09:00 10/17/19 08:59 09/23/19 10:13 Piperacillin Sod/ Tazobactam Sod 3.375 gm/Sodium Chloride 110 ml @ 27.5 mls/hr EVERY 8 HOURS IVPB 09/17/19 06:00 09/26/19 05:59 09/23/19 05:48 Jitendra Hubbard MD Sep 23, 2019 10:34
--- NOTE | 2019-09-23 11:16 | NUR ---
NURSE NOTES: Patient awake and alert, oriented x0. Right eye open, tracking and following. RT deep suctioned small amount of thin, brown secretions. Breath sounds with less ronchi. SPO2 94%, FiO2 unchanged. Oral care provided. TF resumed at 20 mL/hr.
[2019-09-23 12:00] VITALS: BP 123/57
--- NOTE | 2019-09-23 13:44 | Surgery Progress Note ---
Surgery Progress Note Subjective Additional Comments doing well seems more comfortable respiratory improved today no n/v/f/c Objective Last 24 Hour Vital Signs Date Time Temp Pulse Resp B/P (MAP) Pulse Ox O2 Delivery O2 Flow Rate FiO2 09/23/19 12:00 97.4 82 32 123/57 (79) 95 09/23/19 12:00 83 09/23/19 10:13 87 135/69 09/23/19 08:21 Venturi Mask 8.0 09/23/19 08:00 98.1 91 30 135/69 (91) 91 09/23/19 08:00 87 09/23/19 07:00 92 Venturi Mask 8.0 40 09/23/19 04:00 100 09/23/19 04:00 97.0 100 29 125/59 (81) 93 09/23/19 01:06 88 20 93 Venturi Mask 12.0 50 89 22 91 09/23/19 00:00 83 09/23/19 00:00 97.9 82 24 124/53 (76) 94 09/22/19 21:00 Venturi Mask 8.0 09/22/19 20:09 94 Venturi Mask 8.0 40 09/22/19 20:00 98.0 75 26 122/59 (80) 94 09/22/19 20:00 74 09/22/19 16:00 98.2 66 24 118/51 (73) 95 09/22/19 16:00 69 I&O Intake and Output 09/22/19 09/23/19 19:00 07:00 Intake Total 1422.5 ml 1140 ml Output Total 1450 ml Balance -27.5 ml 1140 ml Free Water 200 ml 200 ml IV Total 742.5 ml 500 ml Tube Feeding 480 ml 440 ml Output Urine Total 1450 ml Dressing: saturated Cardiovascular: RSR Respiratory: decreased breath sounds Abdomen: soft, non-tender, present bowel sounds Extremities: no tenderness, no cyanosis Laboratory Tests Test 09/23/19 05:00 White Blood Count 7.9 K/UL (4.8-10.8) Red Blood Count 3.62 M/UL (4.70-6.10) L Hemoglobin 11.2 G/DL (14.2-18.0) L Hematocrit 35.4 % (42.0-52.0) L Mean Corpuscular Volume 98 FL (80-99) Mean Corpuscular Hemoglobin 31.0 PG (27.0-31.0) Mean Corpuscular Hemoglobin Concent 31.7 G/DL (32.0-36.0) L Red Cell Distribution Width 14.5 % (11.6-14.8) Platelet Count 218 K/UL (150-450) Mean Platelet Volume 7.7 FL (6.5-10.1) Neutrophils (%) (Auto) 83.9 % (45.0-75.0) H Lymphocytes (%) (Auto) 10.9 % (20.0-45.0) L Monocytes (%) (Auto) 3.6 % (1.0-10.0) Eosinophils (%) (Auto) 1.4 % (0.0-3.0) Basophils (%) (Auto) 0.2 % (0.0-2.0) Sodium Level 138 MMOL/L (136-145) Potassium Level 3.8 MMOL/L (3.5-5.1) Chloride Level 101 MMOL/L (98-107) Carbon Dioxide Level 31 MMOL/L (21-32) Anion Gap 6 mmol/L (5-15) Blood Urea Nitrogen 16 mg/dL (7-18) Creatinine 1.2 MG/DL (0.55-1.30) Estimat Glomerular Filtration Rate 58.0 mL/min (>60) Glucose Level 133 MG/DL (74-106) H Calcium Level 9.0 MG/DL (8.5-10.1) Plan Problems: (1) ARF (acute renal failure) (2) CVA (cerebral vascular accident) (3) Dehydration (4) Anemia (5) Metastatic lung cancer (metastasis from lung to other site) Assessment & Plan: here is a masslike consolidation noted in the left upper lobe with air bronchogram. It extends from the left suprahilar region to the periphery. With the air bronchogram, this is likely an infectious/inflammatory consolidation rather than a distinct mass. There is a lobulated mass identified in the right midlung adjacent to the right heart margin measuring 4.3 x 3.9 cm. An adjacent satellite lesion is identified in the lateral right upper lobe measuring 1.2 cm. There are reticulonodular interstitial densities noted scattered in the mid to lower lung zones bilaterally. Dependent infiltrates also identified in both lung bases. Right upper paratracheal adenopathy noted near the root of the great vessels. Smaller lymph nodes identified at the azygous region and precarinal space. There is no effusion. Limited images through the upper abdomen show a G-tube in place. There is a left adrenal mass measuring 2.7 cm likely metastatic and there are several right renal cysts. IMPRESSION: LOBULATED MASS IN THE RIGHT MIDLUNG ADJACENT TO THE RIGHT HEART MARGIN CONSISTENT PATIENT'S HISTORY OF PRIMARY LUNG CANCER. METASTATIC DISEASE INCLUDING A SATELLITE LESION LATERAL RIGHT UPPER LOBE WELL NUMEROUS RETICULONODULAR DENSITIES IN THE MID TO LOWER LUNG ZONES. MASSLIKE CONSOLIDATION IN THE LEFT UPPER LOBE WITH AIR BRONCHOGRAM, MORE LIKELY INFECTIOUS/INFLAMMATORY. BIBASILAR INFILTRATES ALSO NOTED. LEFT ADRENAL MASS LIKELY METASTASIS. RIGHT RENAL CYSTS. G-TUBE IN PLACE. (6) Encephalopathy due to infection (7) Sepsis Assessment & Plan: 84-year-old male presented with leukocytosis, hypokalemia, abnormal labs, malnutrition, hypoalbuminemia. Hypokalemia. Pt presented on admission with multiple Pressure injuries. Partial thickness Pressure Injury R Scapula(L)1.5cm x (W)2.5cm. [place] epithelial at base of wound. Edges adherent to base of wound. No erythema or evidence of skin breakdown periwound. DTPI Sacrococcygeal area(L)1.5cm x (W)3.1cm. Base of pressure injury is purpuric ,indurated with surrounding maroon borders. Incontinence Associated Dermatitis periwound Perianally, R and L Gluteus including both ischium and scrotum. Skin is erythematous with scattered areas of maceration. DTPI medial R Heel(L)4.7cmx (W)5.2cm..Intact blood filled blister noted . Marginal erythema along borders . Periwound, R Heel is boggy but blanchable. L Heel is boggy with non-blanchable erythema. Tx.Plan: Cover wound R Scapula with Optifoam drsg. Change every 7 days and prn. Apply Moisture Barrier Paste to Sacrococcygeal wound. Cover with Optifoam drsg. Change every 3 days and prn. Apply Moisture Barrier Paste to Groin,Scrotum , Buttocks with each incontinence care. Apply Betadine to R Heel. Cover with Optifoam drsg. Changee very 3 days and prn. Apply Cavilon Skin Barrier to L Heel. Cover with Optifoam drsg. Change every 7 days and prn. Reposition at least every 2hours or as tolerated. Off-load heels with Pillow. APM/CRUZITO Mattress overlay. Nutritional optimization Trend labs, Abx as per ID will follow with recs thank you ill appearing. labs better cont current care plan DAILY ESTIMATED NEEDS: Needs based on Wound, cancer/ 68kg 25-35 kcals/kg 8755-1083 total kcals 1.25-2 g protein/kg 85-136 g total protein 25-30 mL/kg 4480-7959 total fluid mLs NUTRITION DIAGNOSIS: * Swallowing difficulty r/t dysphagia as evidenced by pt is PEG dep. * Increased kcal/prot intake needs R/T wound healing and catabolic dx as evidenced by admitted w/ wounds including DTPI wounds @ Rt heel and sacrococcyx, and partial thickness Pressure Injury at R Scapula, pt w/ dx of metastatic lung CA. CURRENT TF: Glucerna 1.5 @ 40ml/hr x 24 hrs ENTERAL NUTRITION RECOMMENDATIONS: Vital AF 1.2 @ 60ml/hr x 24 hrs to provide 1440ml, 1728kcal, 108g prot, 1167ml free water - With persistent diarrhea, rec TF change to elemental formula of Vital AF 1.2 for improved GI tolerance - Initiate Vital AF 1.2 @ 20ml/hr x 6hrs, advance 10ml q 4-6 hrs as tolerated to goal rate - Flush per MD/ HOB over 30 degrees ADDITIONAL RECOMMENDATIONS: 1) Calibrated bedscale wts 2) Replete lytes as needed (K low 3.2) 3) Wound care: add Vit C 250mg QD NARCISO in 4oz water BID 4) Monitor for diarrhea- add probiotics Trial of elemental TF as above (8) UTI (urinary tract infection) (9) HCAP (healthcare-associated pneumonia) Epifanio Robin Sep 23, 2019 13:44
[2019-09-23 15:25] VITALS: BP 123/60
--- NOTE | 2019-09-23 19:47 | NUR ---
NURSE NOTES: Gave report to JEFF De Jesus.
--- NOTE | 2019-09-23 19:48 | NUR ---
NURSE NOTES: RECEIVED REPORT FROM JEFF REBOLLEDO. PATIENT ASLEEP IN BED, AROUSABLE TO VOICE STIMULI ONLY, OX0 AND NON-VERBAL. NO S/SX OF PAIN OR DISCOMFORT AT THIS TIME. BREATHING IS EVEN AND UNLABORED ON VENTURI MASK/8LPM/40% FIO2, NO S/SX OF DISTRESS NOTED. GTF RUNNING AT 40 MLS/HR, GOAL OF 60; GT SITE PATENT, NO S/SX OF INFECTION NOTED, RESIDUAL OF 5ML. NAJERA CATHETER DRAINING WELL TO GRAVITY, URINE IS CLEAR AND YELLOW IN COLOR. MICHELL MIDLINE PATENT, INTACT, ASYMPTOMATIC WITH D5W RUNNING AT 50 ML/HR. L WRIST SOFT RESTRAINT- NO COMPROMISE NOTED IN CIRCULATION, SENSATION, SKIN INTEGRITY OR MOBILITY. FALL AND ASPIRATION PRECAUTIONS IN PLACE. BED LOCKED AND IN LOWEST POSITION, SIEDRAILS UP X 3. ON A P200 MATTRESS FOR WOUND MANAGEMENT. CALL LIGHT WITHIN REACH, WILL CONTINUE TO MONITOR FOR ANY CHANGES.
[2019-09-23 20:00] VITALS: BP 123/64
[2019-09-23] MEDS: Dyna-Hex 2% Top Sol 2oz TOPIC SCH (20:21)
[2019-09-23] MEDS: Atorvastatin 20mg tab GT SCH (21:14)
[2019-09-24] VITALS (7 sets, daily range): BP systolic 124–134; BP diastolic 62–75
--- NOTE | 2019-09-24 00:30 | NUR ---
NURSE NOTES: PATIENT ASLEEP IN BED, OPENS RIGHT EYE TO VOICE, NON-VERBAL. APPEARS CALM AND COMFORTABLE. NO S/SX OF PAIN OR DISCOMFORT NOTED. BREATHING EVEN AND UNLABORED ON 8LPM/40%FIO2 VIA VENTURI MASK, NO S/SX OF DISTRESS. LEFT SOFT RESTRAINT ON FOR SAFETY/PULLING MEDICAL DEVICES- NO COMPROMISE NOTED TO CIRCULATION, SKIN INTEGRITY, MOBILITY OR SENSATION. IVF RUNNING PRESCRIBED. GTF INCREASED TO 50 MLS/HR FROM 40 MLS/HR, WITH A GOAL OF 60 MLS/HR; NO RESIDUAL NOTED AT THIS TIME. BED LOCKED AND IN LOWEST POSITION, SIDERAILS UP X 3. CALL LIGHT WITHIN REACH. WILL CONTINUE TO MONITOR FOR ANY CHANGES.
--- NOTE | 2019-09-24 01:57 | Cardiology Progress Note ---
Subjective DATE OF SERVICE: Sep 23, 2019 Still congested on high flow O2 by Ventimask. Unable to taper off oxygen. I spoke to family members yesterday; they agreed to DNR, and are aware of patients grave prognosis. They want care cont'd otherwise at current level of support, at least until patient's son can arrive from [place]. Monitor: Sinus and sinus tachycardia; occ PAC's. Review of Systems: no change from my evaluation on 09/19/2019, other than noted above. Objective Last 24 Hour Vital Signs Date Time Temp Pulse Resp B/P (MAP) Pulse Ox O2 Delivery O2 Flow Rate FiO2 09/24/19 00:00 83 09/24/19 00:00 98.6 83 26 129/65 (86) 95 09/23/19 21:00 Venturi Mask 8.0 09/23/19 20:00 97.9 74 26 123/64 (83) 94 09/23/19 20:00 74 09/23/19 19:42 94 Venturi Mask 12.0 50 09/23/19 16:00 75 09/23/19 15:25 98.1 74 34 123/60 (81) 97 09/23/19 12:00 97.4 82 32 123/57 (79) 95 09/23/19 12:00 83 09/23/19 10:13 87 135/69 09/23/19 08:21 Venturi Mask 8.0 09/23/19 08:00 98.1 91 30 135/69 (91) 91 09/23/19 08:00 87 09/23/19 07:00 92 Venturi Mask 8.0 40 09/23/19 04:00 100 09/23/19 04:00 97.0 100 29 125/59 (81) 93 HEENT: normal ENT inspection RHYTHM: NSR, PACs LUNGS: accessory muscle use, bilateral rhonchi, other - High flow oxygen by VM CARDIAC: regular rhythm, normal S1 and S2, arrhythmia ABDOMEN: normal bowel sounds, non tender, soft, G-Tube intact, other - paradoxical motion EXTREMITIES: trace edema Laboratory Tests Test 09/23/19 05:00 White Blood Count 7.9 K/UL (4.8-10.8) Red Blood Count 3.62 M/UL (4.70-6.10) L Hemoglobin 11.2 G/DL (14.2-18.0) L Hematocrit 35.4 % (42.0-52.0) L Mean Corpuscular Volume 98 FL (80-99) Mean Corpuscular Hemoglobin 31.0 PG (27.0-31.0) Mean Corpuscular Hemoglobin Concent 31.7 G/DL (32.0-36.0) L Red Cell Distribution Width 14.5 % (11.6-14.8) Platelet Count 218 K/UL (150-450) Mean Platelet Volume 7.7 FL (6.5-10.1) Neutrophils (%) (Auto) 83.9 % (45.0-75.0) H Lymphocytes (%) (Auto) 10.9 % (20.0-45.0) L Monocytes (%) (Auto) 3.6 % (1.0-10.0) Eosinophils (%) (Auto) 1.4 % (0.0-3.0) Basophils (%) (Auto) 0.2 % (0.0-2.0) Sodium Level 138 MMOL/L (136-145) Potassium Level 3.8 MMOL/L (3.5-5.1) Chloride Level 101 MMOL/L (98-107) Carbon Dioxide Level 31 MMOL/L (21-32) Anion Gap 6 mmol/L (5-15) Blood Urea Nitrogen 16 mg/dL (7-18) Creatinine 1.2 MG/DL (0.55-1.30) Estimat Glomerular Filtration Rate 58.0 mL/min (>60) Glucose Level 133 MG/DL (74-106) H Calcium Level 9.0 MG/DL (8.5-10.1) Assessment/Plan Assessment/Plan Respiratory Failure COPD Hypoxia Lung Cancer Dehydration Hypernatremia corrected Hypokalemia corrected Acute myocardial ischemia Chronic diastolic CHF Atrial ectopy Chronic RBBB Severe protein/calorie malnutrition Dysphagia with GTube Prognosis grave PLAN: Off IVF O2 Abx Resp hygiene DVT prophyl Nutritional support Continue beta maksim DNR/DNI status Samm Mariscal MD Sep 24, 2019 01:56
[2019-09-24] MEDS: Zosyn 3.375gm q8h **Extended infusion IVPB SCH ×4 (05:38→14:25)
--- NOTE | 2019-09-24 06:15 | NUR ---
NURSE NOTES: INCREASED GTF TO 60 MLS/HR, NOTED TO HAVE 5ML RESIDUAL. PATIENT OTHERWISE TOLERATING FEEDING WELL. WILL CONTINUE TO MONITOR FOR ANY CHANGES.
--- NOTE | 2019-09-24 07:35 | NUR ---
HAND-OFF: Report given to JEFF GARZA. PATIENT IN STABLE CONDITION. PLAN OF CARE ENDORSED.
--- NOTE | 2019-09-24 07:45 | NUR ---
NURSE NOTES: Received report Liza AGUILAR. Pt in bed resting, on venturi mask at 8L of oxygen, audible crackles heard. Receiving Vital AF @ 60cc through GT, vázquez catheter [address] Soft wrist restraint on L wrist, R-sided weakness due to previous CVA. Bed locked and in lowest position, bed alarm placed, call light within reach. Awaiting bed for transfer to med/surg. Will continue to monitor.
[2019-09-24] MEDS: Atenolol 25mg tab GT SCH (09:39)
[2019-09-24] MEDS: Ascorbic Acid 500mg tab ORAL SCH (09:40)
[2019-09-24] MEDS: Lactobacillus-GG tablet ORAL SCH (09:40)
--- NOTE | 2019-09-24 09:46 | Infectious Diseases Prog Note ---
Assessment/Plan Assessment/Plan A; 1. Likely postobstructive pneumonia. 2. COVID-19 rapid test is negative. 3. Atrial fibrillation. 4. CVA. 5. Lung cancer. 6. Hypernatremia 7. Acute renal failure resolved PLAN: 1. Continue Zosyn 2. Poor prognosis Subjective ROS Limited/Unobtainable: Yes Constitutional: Denies: fever Allergies: Coded Allergies: No Known Allergies (Unverified , 09/17/19) Objective Last 24 Hour Vital Signs Date Time Temp Pulse Resp B/P (MAP) Pulse Ox O2 Delivery O2 Flow Rate FiO2 09/24/19 09:39 91 131/62 09/24/19 08:00 97.7 85 19 131/62 (85) 95 09/24/19 08:00 91 09/24/19 04:00 86 09/24/19 04:00 98.1 88 22 124/68 (86) 95 09/24/19 00:00 83 09/24/19 00:00 98.6 83 26 129/65 (86) 95 09/23/19 21:00 Venturi Mask 8.0 09/23/19 20:00 97.9 74 26 123/64 (83) 94 09/23/19 20:00 74 09/23/19 19:42 94 Venturi Mask 12.0 50 09/23/19 16:00 75 09/23/19 15:25 98.1 74 34 123/60 (81) 97 09/23/19 12:00 97.4 82 32 123/57 (79) 95 09/23/19 12:00 83 09/23/19 10:13 87 135/69 Height (Feet): 5 Height (Inches): 10.00 Weight (Pounds): 186 HEENT: mucous membranes moist Respiratory/Chest: rhonchi - bilaterally, other - oxygen by mask Cardiovascular: normal rate Abdomen: soft, non tender, other - GT feeding Extremities: no edema Neurologic/Psychiatric: aphasia Current Medications Medications (Trade) Dose Ordered Sig/Sharda Route PRN Reason Start Time Stop Time Status Last Admin Dose Admin Acetaminophen (Tylenol) 325 mg Q6H PRN GT Mild Pain (Pain Scale 1-3) 09/17/19 08:15 10/17/19 08:14 Albuterol/ Ipratropium (Albuterol/ Ipratropium) 3 ml Q4H PRN HHN Shortness of Breath 09/23/19 01:00 09/28/19 00:59 09/23/19 01:06 Ascorbic Acid (Vitamin C) 250 mg DAILY ORAL 09/23/19 09:00 10/23/19 08:59 09/24/19 09:40 Atenolol (Tenormin) 25 mg DAILY GT 09/17/19 09:00 10/17/19 08:59 09/24/19 09:39 Atorvastatin Calcium (Lipitor) 20 mg BEDTIME GT 09/17/19 21:00 12/16/19 20:59 09/23/19 21:14 Chlorhexidine Gluconate (Deborah-Hex 2%) 1 applic DAILY@1999 TOPIC 09/20/19 20:00 12/19/19 19:59 09/23/19 20:21 Dextrose 1,000 ml @ 50 mls/hr Q20H IV 09/21/19 10:46 10/21/19 10:45 09/23/19 14:28 Flecainide Acetate (Tambocor) 50 mg BID GT 09/17/19 09:00 12/16/19 08:59 09/24/19 09:39 Lactobacillus Acidophilus (Culturelle) 1 tab DAILY ORAL 09/23/19 09:00 12/22/19 08:59 09/24/19 09:40 Lansoprazole (Prevacid) 30 mg DAILY GT 09/17/19 09:00 10/17/19 08:59 09/24/19 09:39 Piperacillin Sod/ Tazobactam Sod 3.375 gm/Sodium Chloride 110 ml @ 27.5 mls/hr EVERY 8 HOURS IVPB 09/17/19 06:00 09/26/19 05:59 09/24/19 05:38 Nick Hector MD Sep 24, 2019 09:46
--- NOTE | 2019-09-24 10:57 | Pulmonology Progress Note ---
Subjective ROS Limited/Unobtainable: Yes Constitutional: Denies: fever Allergies: Coded Allergies: No Known Allergies (Unverified , 09/17/19) All Systems: reviewed and negative except above Subjective care noted on oxygen no distress Objective Last 24 Hour Vital Signs Date Time Temp Pulse Resp B/P (MAP) Pulse Ox O2 Delivery O2 Flow Rate FiO2 09/24/19 09:39 91 131/62 09/24/19 09:00 Venturi Mask 12.0 09/24/19 08:00 97.7 85 19 131/62 (85) 95 09/24/19 08:00 91 09/24/19 04:00 86 09/24/19 04:00 98.1 88 22 124/68 (86) 95 09/24/19 00:00 83 09/24/19 00:00 98.6 83 26 129/65 (86) 95 09/23/19 21:00 Venturi Mask 8.0 09/23/19 20:00 97.9 74 26 123/64 (83) 94 09/23/19 20:00 74 09/23/19 19:42 94 Venturi Mask 12.0 50 09/23/19 16:00 75 09/23/19 15:25 98.1 74 34 123/60 (81) 97 09/23/19 12:00 97.4 82 32 123/57 (79) 95 09/23/19 12:00 83 Intake and Output 09/23/19 09/24/19 19:00 07:00 Intake Total 1170 ml 1364.17 ml Output Total 700 ml 500 ml Balance 470 ml 864.17 ml Free Water 200 ml 200 ml IV Total 600 ml 644.17 ml Tube Feeding 370 ml 520 ml Output Urine Total 700 ml 500 ml # Bowel Movements 1 1 Objective GENERAL: Patient is an ill-appearing male. NECK: Supple. LUNGS: With coarse breath sounds, moderate air entry. CARDIAC: Regular rate and rhythm with soft systolic murmur. ABDOMEN: Soft, nontender. No distention. EXTREMITIES: No cyanosis or clubbing. No edema. NEUROLOGIC: Weak, confused overall. reviewed and edited Current Medications Medications (Trade) Dose Ordered Sig/Sharda Route PRN Reason Start Time Stop Time Status Last Admin Dose Admin Acetaminophen (Tylenol) 325 mg Q6H PRN GT Mild Pain (Pain Scale 1-3) 09/17/19 08:15 8/22/20 08:14 Albuterol/ Ipratropium (Albuterol/ Ipratropium) 3 ml Q4H PRN HHN Shortness of Breath 09/23/19 01:00 09/28/19 00:59 09/23/19 01:06 Ascorbic Acid (Vitamin C) 250 mg DAILY ORAL 09/23/19 09:00 10/23/19 08:59 09/24/19 09:40 Atenolol (Tenormin) 25 mg DAILY GT 09/17/19 09:00 10/17/19 08:59 09/24/19 09:39 Atorvastatin Calcium (Lipitor) 20 mg BEDTIME GT 09/17/19 21:00 12/16/19 20:59 09/23/19 21:14 Chlorhexidine Gluconate (Deborah-Hex 2%) 1 applic DAILY@1999 TOPIC 09/20/19 20:00 12/19/19 19:59 09/23/19 20:21 Dextrose 1,000 ml @ 50 mls/hr Q20H IV 09/21/19 10:46 10/21/19 10:45 09/24/19 10:04 Flecainide Acetate (Tambocor) 50 mg BID GT 09/17/19 09:00 12/16/19 08:59 09/24/19 09:39 Lactobacillus Acidophilus (Culturelle) 1 tab DAILY ORAL 09/23/19 09:00 12/22/19 08:59 09/24/19 09:40 Lansoprazole (Prevacid) 30 mg DAILY GT 09/17/19 09:00 10/17/19 08:59 09/24/19 09:39 Piperacillin Sod/ Tazobactam Sod 3.375 gm/Sodium Chloride 110 ml @ 27.5 mls/hr EVERY 8 HOURS IVPB 09/17/19 06:00 09/26/19 05:59 09/24/19 05:38 Assessment/Plan Assessment/Plan IMPRESSION: Possible pneumonia, lung mass, history of cancer, history of smoking, history of CVA, history of aspiration, hypernatremia, acute renal failure, leukocytosis, possible sepsis. PLAN care noted CT reviewed terminal; awaiting family arrival monitor changes defer biopsy or work up for now obtain records if able to discuss further monitor imaging- repeat today care reviewed and discussed impression, plan, and exam edited and reviewed in detail care discussed with Real Roberson MD Sep 24, 2019 10:57
--- NOTE | 2019-09-24 11:19 | Surgery Progress Note ---
Surgery Progress Note Subjective Additional Comments code status changed to DNR ill appearing. respiratory no n/v no complaints Objective Last 24 Hour Vital Signs Date Time Temp Pulse Resp B/P (MAP) Pulse Ox O2 Delivery O2 Flow Rate FiO2 09/24/19 09:39 91 131/62 09/24/19 09:00 Venturi Mask 12.0 09/24/19 08:00 97.7 85 19 131/62 (85) 95 09/24/19 08:00 91 09/24/19 04:00 86 09/24/19 04:00 98.1 88 22 124/68 (86) 95 09/24/19 00:00 83 09/24/19 00:00 98.6 83 26 129/65 (86) 95 09/23/19 21:00 Venturi Mask 8.0 09/23/19 20:00 97.9 74 26 123/64 (83) 94 09/23/19 20:00 74 09/23/19 19:42 94 Venturi Mask 12.0 50 09/23/19 16:00 75 09/23/19 15:25 98.1 74 34 123/60 (81) 97 09/23/19 12:00 97.4 82 32 123/57 (79) 95 09/23/19 12:00 83 I&O Intake and Output 09/23/19 09/24/19 19:00 07:00 Intake Total 1170 ml 1364.17 ml Output Total 700 ml 500 ml Balance 470 ml 864.17 ml Free Water 200 ml 200 ml IV Total 600 ml 644.17 ml Tube Feeding 370 ml 520 ml Output Urine Total 700 ml 500 ml # Bowel Movements 1 1 Dressing: saturated Wound: other Cardiovascular: RSR Respiratory: decreased breath sounds Abdomen: soft, non-tender, present bowel sounds Extremities: no tenderness, no cyanosis Plan Problems: (1) ARF (acute renal failure) (2) CVA (cerebral vascular accident) (3) Dehydration (4) Anemia (5) Metastatic lung cancer (metastasis from lung to other site) Assessment & Plan: here is a masslike consolidation noted in the left upper lobe with air bronchogram. It extends from the left suprahilar region to the periphery. With the air bronchogram, this is likely an infectious/inflammatory consolidation rather than a distinct mass. There is a lobulated mass identified in the right midlung adjacent to the right heart margin measuring 4.3 x 3.9 cm. An adjacent satellite lesion is identified in the lateral right upper lobe measuring 1.2 cm. There are reticulonodular interstitial densities noted scattered in the mid to lower lung zones bilaterally. Dependent infiltrates also identified in both lung bases. Right upper paratracheal adenopathy noted near the root of the great vessels. Smaller lymph nodes identified at the azygous region and precarinal space. There is no effusion. Limited images through the upper abdomen show a G-tube in place. There is a left adrenal mass measuring 2.7 cm likely metastatic and there are several right renal cysts. IMPRESSION: LOBULATED MASS IN THE RIGHT MIDLUNG ADJACENT TO THE RIGHT HEART MARGIN CONSISTENT PATIENT'S HISTORY OF PRIMARY LUNG CANCER. METASTATIC DISEASE INCLUDING A SATELLITE LESION LATERAL RIGHT UPPER LOBE WELL NUMEROUS RETICULONODULAR DENSITIES IN THE MID TO LOWER LUNG ZONES. MASSLIKE CONSOLIDATION IN THE LEFT UPPER LOBE WITH AIR BRONCHOGRAM, MORE LIKELY INFECTIOUS/INFLAMMATORY. BIBASILAR INFILTRATES ALSO NOTED. LEFT ADRENAL MASS LIKELY METASTASIS. RIGHT RENAL CYSTS. G-TUBE IN PLACE. (6) Encephalopathy due to infection (7) Sepsis Assessment & Plan: 84-year-old male presented with leukocytosis, hypokalemia, abnormal labs, malnutrition, hypoalbuminemia. Hypokalemia. Pt presented on admission with multiple Pressure injuries. Partial thickness Pressure Injury R Scapula(L)1.5cm x (W)2.5cm. [place] epithelial at base of wound. Edges adherent to base of wound. No erythema or evidence of skin breakdown periwound. DTPI Sacrococcygeal area(L)1.5cm x (W)3.1cm. Base of pressure injury is purpuric ,indurated with surrounding maroon borders. Incontinence Associated Dermatitis periwound Perianally, R and L Gluteus including both ischium and scrotum. Skin is erythematous with scattered areas of maceration. DTPI medial R Heel(L)4.7cmx (W)5.2cm..Intact blood filled blister noted . Marginal erythema along borders . Periwound, R Heel is boggy but blanchable. L Heel is boggy with non-blanchable erythema. Tx.Plan: Cover wound R Scapula with Optifoam drsg. Change every 7 days and prn. Apply Moisture Barrier Paste to Sacrococcygeal wound. Cover with Optifoam drsg. Change every 3 days and prn. Apply Moisture Barrier Paste to Groin,Scrotum , Buttocks with each incontinence care. Apply Betadine to R Heel. Cover with Optifoam drsg. Changee very 3 days and prn. Apply Cavilon Skin Barrier to L Heel. Cover with Optifoam drsg. Change every 7 days and prn. Reposition at least every 2hours or as tolerated. Off-load heels with Pillow. APM/CRUZITO Mattress overlay. Nutritional optimization Trend labs, Abx as per ID will follow with recs thank you ill appearing. labs better cont current care plan DAILY ESTIMATED NEEDS: Needs based on Wound, cancer/ 68kg 25-35 kcals/kg 8145-9564 total kcals 1.25-2 g protein/kg 85-136 g total protein 25-30 mL/kg 0769-2413 total fluid mLs NUTRITION DIAGNOSIS: * Swallowing difficulty r/t dysphagia as evidenced by pt is PEG dep. * Increased kcal/prot intake needs R/T wound healing and catabolic dx as evidenced by admitted w/ wounds including DTPI wounds @ Rt heel and sacrococcyx, and partial thickness Pressure Injury at R Scapula, pt w/ dx of metastatic lung CA. CURRENT TF: Glucerna 1.5 @ 40ml/hr x 24 hrs ENTERAL NUTRITION RECOMMENDATIONS: Vital AF 1.2 @ 60ml/hr x 24 hrs to provide 1440ml, 1728kcal, 108g prot, 1167ml free water - With persistent diarrhea, rec TF change to elemental formula of Vital AF 1.2 for improved GI tolerance - Initiate Vital AF 1.2 @ 20ml/hr x 6hrs, advance 10ml q 4-6 hrs as tolerated to goal rate - Flush per MD/ HOB over 30 degrees ADDITIONAL RECOMMENDATIONS: 1) Calibrated bedscale wts 2) Replete lytes as needed (K low 3.2) 3) Wound care: add Vit C 250mg QD NARCISO in 4oz water BID 4) Monitor for diarrhea- add probiotics Trial of elemental TF as above code status changed prognosis poor cont conservative care / comfort (8) UTI (urinary tract infection) (9) HCAP (healthcare-associated pneumonia) Epifanio Robin Sep 24, 2019 11:19
--- NOTE | 2019-09-24 13:15 | NUR ---
HAND-OFF: Report given to Jade RN. Pt in bed resting, on venturi mask at 12 L with oxygen saturation at 99%, vital signs stable. L wrist soft restraint in place, skin intact. R upper arm midline patent and running IVF, endorsed renewing midline order to Jade RN. Pt had 1 large brown liquid bowel movement, has incontinence related dermitis around anus and scrotum, as well as sacral pressure injury. Wound care provided. Pt is wearing SCD's. Bed locked and in lowest position, bed alarm placed, call light within reach. Endorsed plan of care.
--- NOTE | 2019-09-24 13:20 | NUR ---
NURSE NOTES:WOUND CARE FOLLOW-UP NOTES:Pt deconditioned. Pt presented on admission with Sacral DTPI that is evolving and is now partially opened presenting as an Unstageable wound with 100% slough,at sacrococcygeal area measuring (L)2cm x (W)1.9cm.Surrounding area that is maroon with scattered purpuric areas. Base of wound including Unstageable wound measures (L)12.5cm x (W)10.5cm. Incontinence associated dermatitis periwound which includes Perianal area, bilat ischium ,scrotum,R and L groin areas. Skin is erythematous and denuded.Pt also noted to be having frequent watery stools and recommended Primary Nurse request Fecal Management if appropriate. Partial thickness Pressure injury R scapula resolving. Dry, pink epithelial at base of wound. DTPI medial R Heel(L)4.8cm x(W)5.1cm. Intact blood filled Blister noted. No additional erythema or fluctuance periwound. L Heel is boggy but blanchable. Sacral Tx modified to include TheraHoney to area of slough at sacrococcygeal area. Moisture Barrier paste applied periwound and to denuded areas groin,scrotum, Perianal and both ischium.Pt has an APM/CRUZITO Mattress overlay and is bieng positioned as per tolerance and within Protocols. Tx.Plan: Cleanse Sacral wound with Saline. Apply TheraHoney to slough. Apply Moisture Barrier Paste Periwound. Cover with Optifoam drsg Daily and PRN. Apply Moisture Barrier Paste to Bilat groin, scrotum, Perianal area, and Bilat Ischium with each Incontinence care. Apply Betadine to Medial R Heel. Cover with Optifoam drsg. Change every 3 days and prn. Apply Cavilon Skin Barrier to L Heel and Malleoli both feet. Cover each site with Optifoam drsg. Change every 7 Days and prn. Cover Bony prominences as needed with Optifoam drsgs. Reposition at least every 2hours or as tolerated. Off-load Heels with Pillow. APM/CRUZITO Mattress overlay.
--- NOTE | 2019-09-24 13:33 | NUR ---
NURSE NOTES: Received patient in bed asleep. Venturi mask on at 12LPM, O2 sat at 99%. Left soft wrist restraint in place, peripheral pulses palpable, no skin issues noted on site. Midline intact and patent. Wound dressings dry and intact. HOB elevated. Bed locked in lowest position. Call light within reach. Will continue plan of care.
--- NOTE | 2019-09-24 14:50 | NUR ---
DISCHARGE PLANNING PATIENT [facility] T:[phone] F:[phone] NO DISCHARGE ORDER AT THIS TIME
--- NOTE | 2019-09-24 17:23 | General Progress Note ---
Assessment/Plan Problem List: (1) HCAP (healthcare-associated pneumonia) ICD Codes: J18.9 - Pneumonia, unspecified organism SNOMED: 586124706, 512961788 (2) UTI (urinary tract infection) ICD Codes: N39.0 - Urinary tract infection, site not specified SNOMED: 53813804, 349174286 Qualifiers: Qualified Codes: N30.00 - Acute cystitis without hematuria (3) Sepsis ICD Codes: A41.9 - Sepsis, unspecified organism SNOMED: 41592808, 13370056 Qualifiers: Qualified Codes: A41.9 - Sepsis, unspecified organism; R65.20 - Severe sepsis without septic shock; N17.9 - Acute kidney failure, unspecified (4) Encephalopathy due to infection ICD Codes: G93.49 - Other encephalopathy; B99.9 - Unspecified infectious disease SNOMED: 79721168, 14556734 (5) Metastatic lung cancer (metastasis from lung to other site) ICD Codes: C34.90 - Malignant neoplasm of unspecified part of unspecified bronchus or lung SNOMED: 45001045, 176005812 Qualifiers: Qualified Codes: C34.90 - Malignant neoplasm of unspecified part of unspecified bronchus or lung (6) CVA (cerebral vascular accident) ICD Codes: I63.9 - Cerebral infarction, unspecified SNOMED: 022478249, 363389517 Qualifiers: Qualified Codes: I63.9 - Cerebral infarction, unspecified (7) ARF (acute renal failure) ICD Codes: N17.9 - Acute kidney failure, unspecified SNOMED: 48805364, 877767119 Qualifiers: Qualified Codes: N17.9 - Acute kidney failure, unspecified (8) Dehydration ICD Codes: E86.0 - Dehydration SNOMED: 47863257, 837888898 (9) Anemia ICD Codes: D64.9 - Anemia, unspecified SNOMED: 125443294, 882218430 Qualifiers: Qualified Codes: D64.9 - Anemia, unspecified Status: stable, not improved, unchanged Assessment/Plan: monitor lytes/labs cont water flushes tube feeds monitor residuals resp rx titrate o2- wean as able monitor abg ct chest reviewed iv abx dnr now. terminal prognosis await for family to arrive from out of state Subjective ROS Limited/Unobtainable: No Constitutional: Reports: malaise, weakness HEENT: Reports: no symptoms Cardiovascular: Reports: no symptoms Respiratory: Reports: cough, shortness of breath, SOB at rest, sputum Gastrointestinal/Abdominal: Reports: no symptoms Genitourinary: Reports: no symptoms Neurologic/Psychiatric: Reports: pre-existing deficit Endocrine: Reports: no symptoms Hematologic/Lymphatic: Reports: anemia Allergies: Coded Allergies: No Known Allergies (Unverified , 09/17/19) All Systems: reviewed and negative except above Subjective No significant change. now dnr. Remains on high flow oxygen Via Ventimask. unresponsive. appears comfortable. CT of the chest noted-right midlung mass. Multiple satellite lesions. Left masslike consolidation consistent with pneumonia Tolerating feedings. WBC improving. On antibiotics. Cardiology and pulmonary noted. Objective Last 24 Hour Vital Signs Date Time Temp Pulse Resp B/P (MAP) Pulse Ox O2 Delivery O2 Flow Rate FiO2 09/24/19 16:00 98.7 90 18 129/72 (91) 98 09/24/19 12:00 96.3 81 17 125/66 (85) 94 09/24/19 11:27 09/24/19 09:39 91 131/62 09/24/19 09:00 Venturi Mask 12.0 09/24/19 08:25 92 Venturi Mask 12.0 50 09/24/19 08:00 97.7 85 19 131/62 (85) 95 09/24/19 08:00 91 09/24/19 04:00 86 09/24/19 04:00 98.1 88 22 124/68 (86) 95 09/24/19 00:00 83 09/24/19 00:00 98.6 83 26 129/65 (86) 95 09/23/19 21:00 Venturi Mask 8.0 09/23/19 20:00 97.9 74 26 123/64 (83) 94 09/23/19 20:00 74 09/23/19 19:42 94 Venturi Mask 12.0 50 Intake and Output 09/23/19 09/24/19 19:00 07:00 Intake Total 1170 ml 1364.17 ml Output Total 700 ml 500 ml Balance 470 ml 864.17 ml Free Water 200 ml 200 ml IV Total 600 ml 644.17 ml Tube Feeding 370 ml 520 ml Output Urine Total 700 ml 500 ml # Bowel Movements 1 1 Height (Feet): 5 Height (Inches): 10.00 Weight (Pounds): 186 Objective General Appearance: WD/WN, mild distress, cachetic, thin EENT: normal ENT inspection Neck: non-tender, normal alignment, supple Cardiovascular: normal peripheral pulses, normal rate, regular rhythm Respiratory/Chest: rhonchi - bilaterally Abdomen: normal bowel sounds, non tender, soft, no organomegaly Extremities: normal range of motion, non-tender Edema: no edema noted Arm (L), no edema noted Arm (R) Sherif Echevarria MD Sep 24, 2019 17:23
[2019-09-24] MEDS ORDERED: Albuterol/Ipratropium 3ml neb HHN PRN ×2 (17:34→17:51)
[2019-09-24] MEDS ORDERED: Acetaminophen 650mg/20.3ml GT PRN ×2 (17:34→17:50)
--- NOTE | 2019-09-24 17:49 | NUR ---
HAND-OFF: Patient transferred to [place] [address]-1, report given to Rut AGUILAR. No belongnings. Skin check done. Family aware.
--- NOTE | 2019-09-24 17:50 | NUR ---
NURSE NOTES: patient was transferred from tele placed room 401-1 via hospital bed. received report from JEFF Hansen. sleeping. no verbal response at this time. opens right eye only. effort on breathing with ventury@12L. titrate by RT. soft restraint on left wrist only for prevent pull out oxygen. no facial grimacing during care. GT site intact. IV with midline on MICHELL intact. flushed. f/c draining. skin assessment done. sacral unstageable. rt heel DTI. rt middle back with st 2. perineal area redness d/t incontinent both B&B. wound pictured were taken and uploaed. DNR.DNI. no isloation. no belongins. bed in the lowest position and locked. Elevated HOB at all times. call light within reach. alarm on. will continue to provide plan of care.
--- NOTE | 2019-09-24 19:14 | NUR ---
HAND-OFF: Report given to JEFF Avitia.
--- NOTE | 2019-09-24 19:25 | NUR ---
NURSE NOTES: Spoke with [facility]. They stated transport is finishing up a route in [place] and will take another 30 minutes to arrive at [facility] Addendum: 09/24/19 at 2005 by ALECIA LESLIE RN RN Followed up with [facility], spoke with Cordell, transport will take another 35 minutes to arrive at [facility]. Addendum: 09/24/19 at 2006 by ALECIA LESLIE RN RN DISREGARD ABOVE NOTES. WRONG PATIENT.
--- NOTE | 2019-09-24 19:30 | NUR ---
NURSE NOTES: Patient received in bed, asleep, able to open right eye to voice. On GTF tolerating well. On venturi mask at 12L, no acute respiratory distress with intermittent nonproductive cough noted. HOB elevated, aspiration precaution. On soft restraints on left wrist for safety and prevent pulling devices. No edema, skin intact, pulses and circulation intact. FC draining via gravity. Will continue plan of care.
[2019-09-24] MEDS ORDERED: Dyna-Hex 2% Top Sol 2oz TOPIC SCH ×2 (20:00)
[2019-09-24] MEDS ORDERED: Atorvastatin 20mg tab GT SCH ×2 (21:00)
[2019-09-24] MEDS: Piperacillin/Tazobactam 3.375 GM in NS 110 ML IVPB SCH (21:26)
[2019-09-24] MEDS ORDERED: Piperacillin/Tazobactam 3.375 GM in NS 110 ML IVPB SCH (22:00)
--- NOTE | 2019-09-24 22:42 | NUR ---
NURSE NOTES: Patient noted to be pulling his left arm restraints towards his vázquez catheter, attempted to pull it. Re-enforced left wrist restraints. Noted patient had BM, patient cleaned and made comfortable. Dressing changed on sacrum.
--- NOTE | 2019-09-25 02:59 | Cardiology Progress Note ---
Subjective DATE OF SERVICE: Sep 24, 2019 Still congested on high flow O2 by Ventimask. Unable to taper off oxygen. I spoke to family members on 09/22/19; they agreed to DNR, and are aware of patients grave prognosis. They want care cont'd otherwise at current level of support, at least until patient's son can arrive from [place]. No new follow up from family. Review of Systems: no change from my evaluation on 09/19/2019, other than noted above. Objective Last 24 Hour Vital Signs Date Time Temp Pulse Resp B/P (MAP) Pulse Ox O2 Delivery O2 Flow Rate FiO2 09/24/19 23:55 97.9 99 24 132/65 (87) 93 09/24/19 21:00 Venturi Mask 12.0 09/24/19 19:43 95 Venturi Mask 12.0 50 09/24/19 19:40 97.2 93 23 134/75 (94) 96 09/24/19 16:00 98.7 90 18 129/72 (91) 98 09/24/19 12:00 96.3 81 17 125/66 (85) 94 09/24/19 11:27 09/24/19 09:39 91 131/62 09/24/19 09:00 Venturi Mask 12.0 09/24/19 08:25 92 Venturi Mask 12.0 50 09/24/19 08:00 97.7 85 19 131/62 (85) 95 09/24/19 08:00 91 09/24/19 04:00 86 09/24/19 04:00 98.1 88 22 124/68 (86) 95 HEENT: normal ENT inspection RHYTHM: NSR, PACs LUNGS: accessory muscle use, bilateral rhonchi, other - High flow oxygen by VM CARDIAC: regular rhythm, normal S1 and S2, arrhythmia ABDOMEN: normal bowel sounds, non tender, soft, G-Tube intact, other - paradoxical motion EXTREMITIES: trace edema Assessment/Plan Assessment/Plan Respiratory Failure COPD Hypoxia Lung Cancer Dehydration Hypernatremia corrected Hypokalemia corrected Acute myocardial ischemia Chronic diastolic CHF Atrial ectopy Chronic RBBB Severe protein/calorie malnutrition Dysphagia with GTube Prognosis grave PLAN: Off IVF O2 Abx Resp hygiene DVT prophyl Nutritional support Continue beta maksim DNR/DNI status CONSIDER transfer to SNF with current level of support Samm Mariscal MD Sep 25, 2019 02:59
[2019-09-25 04:00] VITALS: BP 125/66
[2019-09-25] MEDS: Piperacillin/Tazobactam 3.375 GM in NS 110 ML IVPB SCH (05:01)
--- NOTE | 2019-09-25 05:15 | NUR ---
NURSE NOTES: Patient appeared very congested, SpO2 88-89% in 12L 50%FiO2. checked residual, no GTF residual. Called RT to help with NT suction. Secretions very thick. SpO2 improved to 93-95%. Will continue close monitoring
--- NOTE | 2019-09-25 07:12 | NUR ---
HAND-OFF: Report given to Rut AGUILAR.
--- NOTE | 2019-09-25 07:22 | NUR ---
NURSE NOTES: Report received from JEFF Avitia. Patient observed to be asleep with HOB elevated. Connected to venturi mask running at 12L/min. No s/sx of SOB/Distress or any pain/discomfort. Gtube running VITAL AF at 60cc with flush h20 100 Q6. Patient observed to tolerate feeding well. Midline located on MICHELL, asymptomatic, inplace and intact. Patient currently on soft wrist restraints left side, skin intact, pulse palpable, call light placed within reach. Bed placed on lowest and locked position. Will continue to monitor.
--- NOTE | 2019-09-25 07:54 | General Progress Note ---
Assessment/Plan Problem List: (1) HCAP (healthcare-associated pneumonia) ICD Codes: J18.9 - Pneumonia, unspecified organism SNOMED: 266259338, 412748626 (2) UTI (urinary tract infection) ICD Codes: N39.0 - Urinary tract infection, site not specified SNOMED: 51967219, 996058091 Qualifiers: Qualified Codes: N30.00 - Acute cystitis without hematuria (3) Sepsis ICD Codes: A41.9 - Sepsis, unspecified organism SNOMED: 11535454, 19205205 Qualifiers: Qualified Codes: A41.9 - Sepsis, unspecified organism; R65.20 - Severe sepsis without septic shock; N17.9 - Acute kidney failure, unspecified (4) Encephalopathy due to infection ICD Codes: G93.49 - Other encephalopathy; B99.9 - Unspecified infectious disease SNOMED: 05133233, 08215587 (5) Metastatic lung cancer (metastasis from lung to other site) ICD Codes: C34.90 - Malignant neoplasm of unspecified part of unspecified bronchus or lung SNOMED: 14129129, 407497350 Qualifiers: Qualified Codes: C34.90 - Malignant neoplasm of unspecified part of unspecified bronchus or lung (6) CVA (cerebral vascular accident) ICD Codes: I63.9 - Cerebral infarction, unspecified SNOMED: 782065280, 763232131 Qualifiers: Qualified Codes: I63.9 - Cerebral infarction, unspecified (7) ARF (acute renal failure) ICD Codes: N17.9 - Acute kidney failure, unspecified SNOMED: 76261119, 625980309 Qualifiers: Qualified Codes: N17.9 - Acute kidney failure, unspecified (8) Dehydration ICD Codes: E86.0 - Dehydration SNOMED: 98711844, 731926159 (9) Anemia ICD Codes: D64.9 - Anemia, unspecified SNOMED: 666076094, 313783541 Qualifiers: Qualified Codes: D64.9 - Anemia, unspecified Status: stable, not improved, unchanged Assessment/Plan: monitor lytes/labs tube feeds/water flushes monitor residuals resp rx titrate o2- wean as able monitor abg ct chest reviewed iv abx dnr now. terminal prognosis await for family to arrive from out of state Subjective ROS Limited/Unobtainable: No Constitutional: Reports: malaise, weakness HEENT: Reports: no symptoms Cardiovascular: Reports: no symptoms Respiratory: Reports: cough, shortness of breath, sputum Gastrointestinal/Abdominal: Reports: difficulty swallowing Genitourinary: Reports: no symptoms Neurologic/Psychiatric: Reports: pre-existing deficit Endocrine: Reports: no symptoms Hematologic/Lymphatic: Reports: no symptoms Allergies: Coded Allergies: No Known Allergies (Unverified , 09/17/19) All Systems: reviewed and negative except above Subjective No significant change. dnr. Remains on high flow oxygen Via Ventimask. unresponsive. appears comfortable. BP controlled. remains on iv abx. no fevers Objective Last 24 Hour Vital Signs Date Time Temp Pulse Resp B/P (MAP) Pulse Ox O2 Delivery O2 Flow Rate FiO2 09/25/19 04:00 97.9 94 24 125/66 (85) 98 09/24/19 23:55 97.9 99 24 132/65 (87) 93 09/24/19 21:00 Venturi Mask 12.0 09/24/19 19:43 95 Venturi Mask 12.0 50 09/24/19 19:40 97.2 93 23 134/75 (94) 96 09/24/19 16:00 98.7 90 18 129/72 (91) 98 09/24/19 12:00 96.3 81 17 125/66 (85) 94 09/24/19 11:27 09/24/19 09:39 91 131/62 09/24/19 09:00 Venturi Mask 12.0 09/24/19 08:25 92 Venturi Mask 12.0 50 09/24/19 08:00 97.7 85 19 131/62 (85) 95 09/24/19 08:00 91 Intake and Output 09/24/19 09/25/19 19:00 07:00 Intake Total 320 ml 1462.5 ml Output Total 440 ml 800 ml Balance -120 ml 662.5 ml Free Water 200 ml 200 ml IV Total 712.5 ml Tube Feeding 120 ml 550 ml Output Urine Total 440 ml 800 ml # Voids 2 # Bowel Movements 3 2 Height (Feet): 5 Height (Inches): 10.00 Weight (Pounds): 186 Objective General Appearance: WD/WN, mild distress, cachetic, thin EENT: normal ENT inspection Neck: non-tender, normal alignment, supple Cardiovascular: normal peripheral pulses, normal rate, regular rhythm Respiratory/Chest: rhonchi - bilaterally Abdomen: normal bowel sounds, non tender, soft, no organomegaly Extremities: normal range of motion, non-tender Edema: no edema noted Arm (L), no edema noted Arm (R) Sherif Echevarria MD Sep 25, 2019 07:54
[2019-09-25 08:00] VITALS: BP 135/67
[2019-09-25] MEDS ORDERED: Atenolol 25mg tab GT SCH ×2 (09:00)
[2019-09-25] MEDS ORDERED: Ascorbic Acid 500mg tab GT SCH ×2 (09:00)
[2019-09-25] MEDS ORDERED: Lactobacillus-GG tablet GT SCH ×2 (09:00)
--- NOTE | 2019-09-25 09:11 | NUR ---
RD ASSESSMENT & RECOMMENDATIONS SEE CARE ACTIVITY FOR COMPLETE ASSESSMENT DAILY ESTIMATED NEEDS: Needs based on Wound, cancer/ 68kg 25-35 kcals/kg 5451-6205 total kcals 1.25-2 g protein/kg 85-136 g total protein 25-30 mL/kg 5180-3082 total fluid mLs NUTRITION DIAGNOSIS: * Swallowing difficulty r/t dysphagia as evidenced by pt is PEG dep. * Increased kcal/prot intake needs R/T wound healing and catabolic dx as evidenced by admitted w/ wounds including DTPI wounds @ Rt heel and sacrococcyx, and partial thickness Pressure Injury at R Scapula, pt w/ dx of metastatic lung CA. CURRENT TF:Vital 1.2 @ 60ml/hr x 24 hrs ENTERAL NUTRITION RECOMMENDATIONS: Vital AF 1.2 @ 60ml/hr x 24 hrs to provide 1440ml, 1728kcal, 108g prot, 1167ml free water - With persistent diarrhea, rec TF change to elemental formula of Vital AF 1.2 for improved GI tolerance - Initiate Vital AF 1.2 @ 20ml/hr x 6hrs, advance 10ml q 4-6 hrs as tolerated to goal rate - Flush per MD/ HOB over 30 degrees ADDITIONAL RECOMMENDATIONS: 1) Calibrated bedscale wts 2) Replete lytes as needed (K low 3.2) 3) Wound care: add Vit C 250mg QD NARCISO in 4oz water BID 4) Monitor for diarrhea- add probiotics Trial of elemental TF as above, tolerating well per RN
--- NOTE | 2019-09-25 10:29 | NUR ---
CASE MANAGEMENT:REVIEW SI;ENCEPHALOPATHY. PNEUMONIA. SEPSIS. 97.9 105 30 135/67 93% 12 VENTURI MASK FIO2 @ 50% IS;ZOSYN IV Q8 PREVACID GT QD CULTURELLE GT QD LIPITOR GT QD IVF D5 @ 50 ML/HR 4E MED SURG STATUS DCP;FROM [facility]; NOW DNR/DNI MONITOR RESIDUALS TERMINAL PROGNOSIS
--- NOTE | 2019-09-25 10:39 | Infectious Diseases Prog Note ---
Assessment/Plan Assessment/Plan antibiotics : zosyn A 1. post obstructive pneumonia COVID 19 rapid test negative 2. lung cancer 3. CVA 4. hypertension P 1. continue zosyn 1 more day 2. will follow up cultures 3. poor prognosis Subjective ROS Limited/Unobtainable: Yes Allergies: Coded Allergies: No Known Allergies (Unverified , 09/17/19) Objective Last 24 Hour Vital Signs Date Time Temp Pulse Resp B/P (MAP) Pulse Ox O2 Delivery O2 Flow Rate FiO2 09/25/19 09:00 Venturi Mask 12.0 09/25/19 08:53 105 135/67 09/25/19 08:00 97.7 105 30 135/67 (89) 95 09/25/19 04:00 97.9 94 24 125/66 (85) 98 09/24/19 23:55 97.9 99 24 132/65 (87) 93 09/24/19 21:00 Venturi Mask 12.0 09/24/19 19:43 95 Venturi Mask 12.0 50 09/24/19 19:40 97.2 93 23 134/75 (94) 96 09/24/19 16:00 98.7 90 18 129/72 (91) 98 09/24/19 12:00 96.3 81 17 125/66 (85) 94 09/24/19 11:27 Height (Feet): 5 Height (Inches): 10.00 Weight (Pounds): 186 Respiratory/Chest: lungs clear Cardiovascular: normal rate, regular rhythm, no gallop/murmur Abdomen: soft, non tender, other - GT Extremities: no edema - right arm PICC Current Medications Medications (Trade) Dose Ordered Sig/Sharda Route PRN Reason Start Time Stop Time Status Last Admin Dose Admin Acetaminophen (Tylenol) 325 mg Q6H PRN GT Mild Pain (Pain Scale 1-3) 09/24/19 17:50 10/24/19 17:49 Albuterol/ Ipratropium (Albuterol/ Ipratropium) 3 ml Q4H PRN HHN Shortness of Breath 09/24/19 17:51 09/29/19 17:50 Ascorbic Acid (Vitamin C) 250 mg DAILY GT 09/25/19 09:00 10/23/19 08:59 09/25/19 08:53 Atenolol (Tenormin) 25 mg DAILY GT 09/25/19 09:00 10/17/19 08:59 09/25/19 08:53 Atorvastatin Calcium (Lipitor) 20 mg BEDTIME GT 09/24/19 21:00 12/16/19 20:59 09/24/19 21:26 Chlorhexidine Gluconate (Deborah-Hex 2%) 1 applic DAILY@1999 TOPIC 09/24/19 20:00 12/19/19 19:59 09/24/19 20:31 Dextrose 1,000 ml @ 50 mls/hr Q20H IV 09/24/19 18:00 10/24/19 17:33 09/25/19 05:02 Flecainide Acetate (Tambocor) 50 mg BID GT 09/25/19 09:00 12/24/19 08:59 09/25/19 08:53 Lactobacillus Acidophilus (Culturelle) 1 tab DAILY GT 09/25/19 09:00 12/22/19 08:59 09/25/19 08:53 Lansoprazole (Prevacid) 30 mg DAILY GT 09/25/19 09:00 10/17/19 08:59 09/25/19 08:53 Piperacillin Sod/ Tazobactam Sod 3.375 gm/Sodium Chloride 110 ml @ 27.5 mls/hr EVERY 8 HOURS IVPB 09/24/19 22:00 09/26/19 05:59 09/25/19 05:01 Jitendra Hubbard MD Sep 25, 2019 10:39
--- NOTE | 2019-09-25 11:01 | Surgery Progress Note ---
Surgery Progress Note Subjective Additional Comments ill appearing on respiratory support downgraded Objective Last 24 Hour Vital Signs Date Time Temp Pulse Resp B/P (MAP) Pulse Ox O2 Delivery O2 Flow Rate FiO2 09/25/19 09:00 Venturi Mask 12.0 09/25/19 08:53 105 135/67 09/25/19 08:00 97.7 105 30 135/67 (89) 95 09/25/19 04:00 97.9 94 24 125/66 (85) 98 09/24/19 23:55 97.9 99 24 132/65 (87) 93 09/24/19 21:00 Venturi Mask 12.0 09/24/19 19:43 95 Venturi Mask 12.0 50 09/24/19 19:40 97.2 93 23 134/75 (94) 96 09/24/19 16:00 98.7 90 18 129/72 (91) 98 09/24/19 12:00 96.3 81 17 125/66 (85) 94 09/24/19 11:27 I&O Intake and Output 09/24/19 09/25/19 19:00 07:00 Intake Total 320 ml 1512.5 ml Output Total 440 ml 800 ml Balance -120 ml 712.5 ml Free Water 200 ml 200 ml IV Total 762.5 ml Tube Feeding 120 ml 550 ml Output Urine Total 440 ml 800 ml # Voids 2 # Bowel Movements 3 2 Dressing: other Wound: other Cardiovascular: RSR Respiratory: decreased breath sounds Abdomen: non-tender, present bowel sounds Extremities: no tenderness, no cyanosis Plan Problems: (1) ARF (acute renal failure) (2) CVA (cerebral vascular accident) (3) Dehydration (4) Anemia (5) Metastatic lung cancer (metastasis from lung to other site) Assessment & Plan: here is a masslike consolidation noted in the left upper lobe with air bronchogram. It extends from the left suprahilar region to the periphery. With the air bronchogram, this is likely an infectious/inflammatory consolidation rather than a distinct mass. There is a lobulated mass identified in the right midlung adjacent to the right heart margin measuring 4.3 x 3.9 cm. An adjacent satellite lesion is identified in the lateral right upper lobe measuring 1.2 cm. There are reticulonodular interstitial densities noted scattered in the mid to lower lung zones bilaterally. Dependent infiltrates also identified in both lung bases. Right upper paratracheal adenopathy noted near the root of the great vessels. Smaller lymph nodes identified at the azygous region and precarinal space. There is no effusion. Limited images through the upper abdomen show a G-tube in place. There is a left adrenal mass measuring 2.7 cm likely metastatic and there are several right renal cysts. IMPRESSION: LOBULATED MASS IN THE RIGHT MIDLUNG ADJACENT TO THE RIGHT HEART MARGIN CONSISTENT PATIENT'S HISTORY OF PRIMARY LUNG CANCER. METASTATIC DISEASE INCLUDING A SATELLITE LESION LATERAL RIGHT UPPER LOBE WELL NUMEROUS RETICULONODULAR DENSITIES IN THE MID TO LOWER LUNG ZONES. MASSLIKE CONSOLIDATION IN THE LEFT UPPER LOBE WITH AIR BRONCHOGRAM, MORE LIKELY INFECTIOUS/INFLAMMATORY. BIBASILAR INFILTRATES ALSO NOTED. LEFT ADRENAL MASS LIKELY METASTASIS. RIGHT RENAL CYSTS. G-TUBE IN PLACE. (6) Encephalopathy due to infection (7) Sepsis Assessment & Plan: 84-year-old male presented with leukocytosis, hypokalemia, abnormal labs, malnutrition, hypoalbuminemia. Hypokalemia. Pt presented on admission with multiple Pressure injuries. Partial thickness Pressure Injury R Scapula(L)1.5cm x (W)2.5cm. [place] epithelial at base of wound. Edges adherent to base of wound. No erythema or evidence of skin breakdown periwound. DTPI Sacrococcygeal area(L)1.5cm x (W)3.1cm. Base of pressure injury is purpuric ,indurated with surrounding maroon borders. Incontinence Associated Dermatitis periwound Perianally, R and L Gluteus including both ischium and scrotum. Skin is erythematous with scattered areas of maceration. DTPI medial R Heel(L)4.7cmx (W)5.2cm..Intact blood filled blister noted . Marginal erythema along borders . Periwound, R Heel is boggy but blanchable. L Heel is boggy with non-blanchable erythema. Tx.Plan: Cover wound R Scapula with Optifoam drsg. Change every 7 days and prn. Apply Moisture Barrier Paste to Sacrococcygeal wound. Cover with Optifoam drsg. Change every 3 days and prn. Apply Moisture Barrier Paste to Groin,Scrotum , Buttocks with each incontinence care. Apply Betadine to R Heel. Cover with Optifoam drsg. Changee very 3 days and prn. Apply Cavilon Skin Barrier to L Heel. Cover with Optifoam drsg. Change every 7 days and prn. Reposition at least every 2hours or as tolerated. Off-load heels with Pillow. APM/CRUZITO Mattress overlay. Nutritional optimization Trend labs, Abx as per ID will follow with recs thank you ill appearing. labs better cont current care plan DAILY ESTIMATED NEEDS: Needs based on Wound, cancer/ 68kg 25-35 kcals/kg 2122-6929 total kcals 1.25-2 g protein/kg 85-136 g total protein 25-30 mL/kg 6773-7590 total fluid mLs NUTRITION DIAGNOSIS: * Swallowing difficulty r/t dysphagia as evidenced by pt is PEG dep. * Increased kcal/prot intake needs R/T wound healing and catabolic dx as evidenced by admitted w/ wounds including DTPI wounds @ Rt heel and sacrococcyx, and partial thickness Pressure Injury at R Scapula, pt w/ dx of metastatic lung CA. CURRENT TF: Glucerna 1.5 @ 40ml/hr x 24 hrs ENTERAL NUTRITION RECOMMENDATIONS: Vital AF 1.2 @ 60ml/hr x 24 hrs to provide 1440ml, 1728kcal, 108g prot, 1167ml free water - With persistent diarrhea, rec TF change to elemental formula of Vital AF 1.2 for improved GI tolerance - Initiate Vital AF 1.2 @ 20ml/hr x 6hrs, advance 10ml q 4-6 hrs as tolerated to goal rate - Flush per MD/ HOB over 30 degrees ADDITIONAL RECOMMENDATIONS: 1) Calibrated bedscale wts 2) Replete lytes as needed (K low 3.2) 3) Wound care: add Vit C 250mg QD NARCISO in 4oz water BID 4) Monitor for diarrhea- add probiotics Trial of elemental TF as above code status changed prognosis poor cont conservative care / comfort (8) UTI (urinary tract infection) (9) HCAP (healthcare-associated pneumonia) Epifanio Robin Sep 25, 2019 11:01
--- NOTE | 2019-09-25 11:43 | NUR ---
DISCHARGE PLANNING CALL MADE TO DR ZHENG'S OFFICE [phone] IN RE TO DC PLAN BACK TO SNF. MESSAGE LEFT WITH ADRIAN REQUESTING CALL BACK.
--- NOTE | 2019-09-25 11:54 | Cardiology Progress Note ---
Subjective DATE OF SERVICE: Sep 25, 2019 More comfortable, but still on high flow O2 by Ventimask. Unable to taper off oxygen. He will complete IV abx today. I spoke to family members on 09/22/19; they agreed to DNR, and are aware of patients grave prognosis. They want care cont'd otherwise at current level of support, at least until patient's son can arrive from [place]. No new follow up from family. Review of Systems: no change from my evaluation on 09/19/2019, other than noted above. Objective Last 24 Hour Vital Signs Date Time Temp Pulse Resp B/P (MAP) Pulse Ox O2 Delivery O2 Flow Rate FiO2 09/25/19 09:00 Venturi Mask 12.0 09/25/19 08:53 105 135/67 09/25/19 08:00 97.7 105 30 135/67 (89) 95 09/25/19 04:00 97.9 94 24 125/66 (85) 98 09/24/19 23:55 97.9 99 24 132/65 (87) 93 09/24/19 21:00 Venturi Mask 12.0 09/24/19 19:43 95 Venturi Mask 12.0 50 09/24/19 19:40 97.2 93 23 134/75 (94) 96 09/24/19 16:00 98.7 90 18 129/72 (91) 98 09/24/19 12:00 96.3 81 17 125/66 (85) 94 HEENT: normal ENT inspection RHYTHM: NSR, PACs LUNGS: accessory muscle use, bilateral rhonchi, other - High flow oxygen by VM CARDIAC: regular rhythm, normal S1 and S2, arrhythmia ABDOMEN: normal bowel sounds, non tender, soft, G-Tube intact, other - paradoxical motion EXTREMITIES: trace edema Assessment/Plan Assessment/Plan Respiratory Failure COPD Hypoxia Lung Cancer Dehydration Hypernatremia corrected Hypokalemia corrected Acute myocardial ischemia Chronic diastolic CHF Atrial ectopy Chronic RBBB Severe protein/calorie malnutrition Dysphagia with GTube PLAN: Off IVF O2 Abx Resp hygiene DVT prophyl Nutritional support Continue beta maksim; now need for flecainide. DNR/DNI status Transfer to SNF with current level of support - if they can provide adequate O2 therapy. Samm Mariscal MD Sep 25, 2019 11:54
[2019-09-25 12:00] VITALS: BP 118/62
--- NOTE | 2019-09-25 12:33 | NUR ---
DISCHARGE PLANNING PATIENT IS FROM [facility] AND HAS BEEN REFERRED BACK TO [facility] IS ONLY ACCEPTING PATIENT'S WITH TRACHEOSTOMIES AND ON VENTILATORS [facility] WILL NOT ACCEPT PATIENT BECAUSE IT IS A LATERAL TRANSFER AND THE PATIENT HAS BEEN HOSPITALIZED FOR FOR 8 DAYS THE ONLY DISCHARGE OPTION IS [facility] Addendum: 09/25/19 at 1246 by VILMA ALVARADO LVN LVN WAITING FOR STAT CHEST XRAY AND BED AT [facility] SPOKE WITH DAUGHTER.....SHE WANTS TO BE NOTIFIED OF TIME OF DISCHARGE SO THEY CAN COME VISIT
--- NOTE | 2019-09-25 13:24 | NUR ---
RADIOLOGY DEPT., CHEST X-RAY DONE.-P.DYE
--- NOTE | 2019-09-25 13:29 | Pulmonology Progress Note ---
Subjective ROS Limited/Unobtainable: Yes Constitutional: Denies: fever Allergies: Coded Allergies: No Known Allergies (Unverified , 09/17/19) All Systems: reviewed and negative except above Subjective care noted on oxygen no distress Objective Last 24 Hour Vital Signs Date Time Temp Pulse Resp B/P (MAP) Pulse Ox O2 Delivery O2 Flow Rate FiO2 09/25/19 12:00 97.7 82 29 118/62 (80) 99 09/25/19 09:00 Venturi Mask 12.0 09/25/19 08:53 105 135/67 09/25/19 08:00 97.7 105 30 135/67 (89) 95 09/25/19 04:00 97.9 94 24 125/66 (85) 98 09/24/19 23:55 97.9 99 24 132/65 (87) 93 09/24/19 21:00 Venturi Mask 12.0 09/24/19 19:43 95 Venturi Mask 12.0 50 09/24/19 19:40 97.2 93 23 134/75 (94) 96 09/24/19 16:00 98.7 90 18 129/72 (91) 98 Intake and Output 09/24/19 09/25/19 19:00 07:00 Intake Total 320 ml 1512.5 ml Output Total 440 ml 800 ml Balance -120 ml 712.5 ml Free Water 200 ml 200 ml IV Total 762.5 ml Tube Feeding 120 ml 550 ml Output Urine Total 440 ml 800 ml # Voids 2 # Bowel Movements 3 2 Objective GENERAL: Patient is an ill-appearing male. NECK: Supple. LUNGS: With coarse breath sounds, moderate air entry. CARDIAC: Regular rate and rhythm with soft systolic murmur. ABDOMEN: Soft, nontender. No distention. EXTREMITIES: No cyanosis or clubbing. No edema. NEUROLOGIC: Weak, confused overall. reviewed and edited Current Medications Medications (Trade) Dose Ordered Sig/Sharda Route PRN Reason Start Time Stop Time Status Last Admin Dose Admin Acetaminophen (Tylenol) 325 mg Q6H PRN GT Mild Pain (Pain Scale 1-3) 09/24/19 17:50 10/24/19 17:49 Albuterol/ Ipratropium (Albuterol/ Ipratropium) 3 ml Q4H PRN HHN Shortness of Breath 09/24/19 17:51 09/29/19 17:50 Ascorbic Acid (Vitamin C) 250 mg DAILY GT 09/25/19 09:00 10/23/19 08:59 09/25/19 08:53 Atenolol (Tenormin) 25 mg DAILY GT 09/25/19 09:00 10/17/19 08:59 09/25/19 08:53 Atorvastatin Calcium (Lipitor) 20 mg BEDTIME GT 09/24/19 21:00 12/16/19 20:59 09/24/19 21:26 Chlorhexidine Gluconate (Deborah-Hex 2%) 1 applic DAILY@1999 TOPIC 09/24/19 20:00 12/19/19 19:59 09/24/19 20:31 Lactobacillus Acidophilus (Culturelle) 1 tab DAILY GT 09/25/19 09:00 12/22/19 08:59 09/25/19 08:53 Lansoprazole (Prevacid) 30 mg DAILY GT 09/25/19 09:00 10/17/19 08:59 09/25/19 08:53 Piperacillin Sod/ Tazobactam Sod 3.375 gm/Sodium Chloride 110 ml @ 27.5 mls/hr EVERY 8 HOURS IVPB 09/25/19 14:00 09/25/19 16:00 Assessment/Plan Assessment/Plan IMPRESSION: Possible pneumonia, lung mass, history of cancer, history of smoking, history of CVA, history of aspiration, hypernatremia, acute renal failure, leukocytosis, possible sepsis. PLAN care noted CT reviewed terminal; awaiting family arrival monitor changes defer biopsy or work up for now obtain records if able to discuss further monitor imaging- repeat today care reviewed and discussed impression, plan, and exam edited and reviewed in detail care discussed with Real Roberson MD Sep 25, 2019 13:29
--- NOTE | 2019-09-25 13:46 | NUR ---
DISCHARGE PLANNED PATIENT WILL BE RETURNING TO [facility] ROOM 3A T: [phone] FOR NURSE TO NURSE REPORT [facility] HAS BEE ARRANGED FOR [address] [employer] SPOKE WITH DAUGHTER, NAVEEN HAN T: [phone] AND SHE IS IN AGREEMENT WITH DISCHARGE PLAN FAMILY WILL BE HERE AT 4PM TO VISIT. ONE MEMBER WILL COME UP AND THE REST OF THE FAMILY WILL WAIT DOWNSTAIRS AND SEE HIM ON THE WAY OUT
[2019-09-25] MEDS ORDERED: Piperacillin/Tazobactam 3.375 GM in NS 110 ML IVPB SCH (14:00)
--- NOTE | 2019-09-25 14:30 | Diagnostic Imaging Report ---
Procedure: XRAY Chest 1v Reason for study: Reason For Exam: SOB Comparison films: 09/21/2019. FINDINGS: A single one view chest is obtained. Diffuse bilateral alveolar infiltrates again noted. Cardiac and mediastinal silhouette are within normal limits. CP angles are sharp. The bony thorax appear unremarkable. IMPRESSION: No significant change bilateral infiltrates.
--- NOTE | 2019-09-25 15:09 | NUR ---
NURSE NOTES: received order from CECIL Ellsworth IV ATB upon discharge. order noted and carried out.
--- NOTE | 2019-09-25 15:13 | NUR ---
NURSE NOTES: patient family want to see the patient before he will be discharged. rescheduled transportation at 1700.
--- NOTE | 2019-09-25 15:22 | NUR ---
NURSE NOTES: given report to JEFF Tadeo supervisor tower. [facility].
[2019-09-25 16:00] VITALS: BP 122/71
--- NOTE | 2019-09-25 17:33 | NUR ---
NURSE NOTES: received order from Dr. Echevarria to keep mid line on right upper arm upon discharge. order noted and carried out.
--- NOTE | 2019-09-25 19:25 | NUR ---
HAND-OFF: Report given to JEFF Hernandez .
--- NOTE | 2019-09-25 19:30 | NUR ---
NURSE NOTES: The patient was pickup by [facility] with [employer] personals via a gurney. He is on continuos oxygen via Venturi mask @ 10 liters with an Spo2 of 97% Venturi.He is alert and oriented x1 and was discharged with his PICC line intact and asymptomatic in the MARTHA.[facility] and the nursing housekeeping supervisor hotel was notified.
--- NOTE | 2019-09-27 10:48 | Discharge Summary ---
Discharge Summary Discharge Summary _ DATE OF ADMISSION: 09/17/2019 DATE OF DISCHARGE: 09/25/2019 DISCHARGED BY: Dr. Sherif Echevarria CONSULTANTS: Dr. Samm Hubbard BRIEF HOSPITAL COURSE: Patient is an 84-year-old male. He has history of lung CA and previously been on chemotherapy. Family felt that he was improving. Apparently, at the beginning of August, he suffered a stroke and was admitted to [facility]. He had prolonged hospitalization there and was recently just discharged to a nursing facility. According to family members, he had a hemorrhagic bleed. He also had issues with his heart and was started on antiarrhythmics. He was on a ventilator and eventually had a G-tube placed. He was transferred out of the hospital to alcohol rehab, but due to shortness of breath, he was immediately transferred to ED. On evaluation at ED, blood work showed WBC elevated to 13. Hemoglobin 11 and hematocrit 35. Platelet count normal. Sodium was elevated to 156. Chloride 115. BUN 42 and creatinine 1.5. Glucose 157. Troponin was elevated to 0.067. proBNP 532. Urinalysis showed 2+ protein, 4+ blood, 1+ leukocyte esterase, 10 -15 RBC and 0-2 WBC. Patient was hypoxic. He was started on nonrebreather mask. He was then admitted for further evaluation and care. He was given supplemental O2. O2 was titrated. He was started empirically on IV vancomycin and Zosyn. Family wanted full code. Rapid COVID-19 test was negative. Isolation was discontinued. He was continued on G-tube feedings. Patient was noted with multiple pressure injuries. Surgeon was consulted to assist with care. Patient has partial-thickness pressure injury on the right scapula; deep tissue pressure injury on the sacrococcygeal area; deep tissue pressure injury on the right medial heel; left heel had non-blanchable erythema. He was given local wound care. He was placed on APM/CRUZITO mattress overlay with frequent repositioning and offloading. Nutrition was optimized. Venous duplex was unremarkable. Blood culture did not isolate any growth. IV vancomycin was discontinued. Patient continued to be congested he was high flow O2 by Ventimask. Unable to taper off oxygen. CT of the chest showed right midlung mass. Multiple satellite lesions. Masslike consolidation consistent with pneumonia. Patient family aware of poor prognosis. Family wants to continue current level of support until patient's son arrives from [place]. They however agreed to DNR. Patient is eventually completed IV antibiotic treatment. Patient was then cleared for transfer to SNF with current level of support. FINAL DIAGNOSES: Acute respiratory failure HCAP UTI Sepsis Encephalopathy due to infection Old CVA Acute renal failure Dehydration Anemia COPD Hypoxia Metastatic lung cancer Dehydration Hypernatremia corrected Hypokalemia corrected Chronic diastolic CHF Acute myocardial ischemia Atrial ectopy Chronic RBBB Severe protein calorie malnutrition Dysphagia with G-tube Multiple pressure injuries, as stated above, present on admission DISPOSITION: Patient was discharged back to [facility]. DISCHARGE MEDICATIONS: Refer to Discharge Medication List. I have been assigned to complete a discharge summary on this account, I was not involved with the patient's management.--GODFREY Estrada Jacqueline Robles NP Sep 27, 2019 10:48
== END 2019-09-25 19:30 | disposition short-term general hospital (02) | DRG 871 ==
LOC: EDBD 00:23 → EMR 00:45 → EDBEDREQ 01:14 → 2E 01:50 → EDBEDREQ 01:58 → 2E 09-22 08:08 → 4E 09-24 17:26
DX: A41.9 Sepsis, unspecified organism (principal); J18.9 Pneumonia, unspecified organism; J96.00 Acute respiratory failure, unspecified whether with hypoxia or hypercapnia; E43 Unspecified severe protein-calorie malnutrition; E87.0 Hyperosmolality and hypernatremia; N17.9 Acute kidney failure, unspecified; N39.0 Urinary tract infection, site not specified; G93.49 Other encephalopathy; J44.0 Chronic obstructive pulmonary disease with (acute) lower respiratory infection; I50.32 Chronic diastolic (congestive) heart failure; Z85.118 Personal history of other malignant neoplasm of bronchus and lung; Z86.73 Personal history of transient ischemic attack (TIA), and cerebral infarction without residual deficits; Y95 Nosocomial condition; E86.0 Dehydration; D64.9 Anemia, unspecified; R19.7 Diarrhea, unspecified; Z20.828 Contact with and (suspected) exposure to other viral communicable diseases; Z68.26 Body mass index [BMI] 26.0-26.9, adult; I11.0 Hypertensive heart disease with heart failure; E87.6 Hypokalemia; I25.9 Chronic ischemic heart disease, unspecified; I45.10 Unspecified right bundle-branch block; E87.8 Other disorders of electrolyte and fluid balance, not elsewhere classified; R13.10 Dysphagia, unspecified; Z93.1 Gastrostomy status; Z66 Do not resuscitate
CPT/HCPCS: 36415; 36600; 70450; 71045; 71250; 80048; 80053; 80202; 81003; 82803; 83605; 83735; 83880; 84484; 85007; 85025; 86140; 87040; 87070; 87081; 87086; 87205; 87324; 93005; 93970; 94640; 96365; 96368; 99291; J7030; J7620; J8499; U0002